=== PATIENT | female | born 1945 | race Caucasian/White ===

== ENCOUNTER 2017-06-18 12:45 | Inpatient (IN) ==
[2017-06-18 13:54] LABS: Basophils % 0.2 %; Eosinophils # 0.1 K/mcL (0.0-0.6); Eosinophils % 0.8 %; Hematocrit 30.7 % (35.3-44.9); Hemoglobin 9.4 g/dL (11.5-15.4); Immature Granulocytes % 0.5 % (0-4); Lymphocytes # 1.5 K/mcL (0.6-4.6); Mean Corpuscular HGB Conc 30.6 g/dL (31.6-35.5); Mean Corpuscular Hemoglobin 25.2 pg (28.0-33.3); Mean Corpuscular Volume 82.3 fL (83.0-100.0); Monocytes % 8.7 %; Neutrophils # 8.3 K/mcL (1.6-8.9); Platelet Count 223 K/mcL (140-400); Red Blood Count 3.73 M/mcL (3.82-4.97); Red Cell Distribution Width 14.7 % (11.5-14.5); Segmented Neutrophils % 75.8 %
[2017-06-18 14:11] LABS: Albumin 2.9 g/dL (3.5-5.0); Albumin/Globulin Ratio 0.6 (1.1-2.2); Bilirubin,Direct 0.2 mg/dL (0.0-0.5); Bilirubin,Indirect 0.4 mg/dL (0.0-1.2); Bilirubin,Total 0.6 mg/dL (0.2-1.2); Calcium 9.7 mg/dL (8.6-10.8); Globulin 5.2 g/dL (2.4-3.5); Potassium 3.8 mEq/L (3.5-4.5); Total Protein 8.1 g/dL (6.0-8.3)
[2017-06-18] MEDS ORDERED: 0.9 % Sodium Chloride 1,000 ML IVC ONE (14:50)
[2017-06-18 16:29] LABS: Bilirubin,Urine Small (Negative); Blood,Urine Negative (Negative); Clarity,Urine Turbid (Clear); Color,Urine Dark Yellow (Yellow); Glucose,Urine (UA) Normal (Normal); Ketones,Urine Negative (Negative); Leukocyte Esterase,Urine Moderate (Negative); Nitrite,Urine Negative (Negative); PH,Urine 5.5 pH Units (5.0-8.0); Protein,Urine Negative (Neg-Trace); Specific Gravity,Urine 1.027 (1.010-1.025); Urobilinogen,Urine Normal (Normal)
[2017-06-18 16:32] LABS: Squamous Epithelial Cell,Urine Many per lpf (None-Few); WBC,Urine 15-30 per hpf (0-3)
--- NOTE | 2017-06-18 16:37 | Emergency Department Note ---
Disposition Clinical Impression: Hypoxia UTI (urinary tract infection) Qualifiers: Urinary tract infection type: site unspecified Hematuria presence: with hematuria Qualified Code(s): N39.0 - Urinary tract infection, site not specified Disposition: Admitted As Inpatient Condition: Fair Referrals: Cha Freeman MD [Primary Care Provider] - Time of Disposition: 18:53 General Adult HPI - General Chief complaint: ED General Medical Stated complaint: urinary symptoms Time Seen by Provider: 06/18/17 14:44 Source: patient, family Limitations: no limitations Nursing Notes Reviewed: Yes Vital Signs Reviewed: Yes - History of Present Illness HPI Narrative: Mrs. Trevizo, 72-year-old female, presents from home for evaluation of decreased urination. Patient now urinates approximately 1 time per day. Described as foul smelling with left flank and lower back pain. She also notes bilateral foot pain worse with the swelling of her feet. Patient is a history of chronic kidney disease stage IV... Is nearing stage V. Podiatry: Dr. Hutson - hx of vein stripping causing chronic lower extremity edema. Pain Scale: 7 - Related Data Home Medications Medication Instructions Recorded Confirmed Aspirin 81 mg PO DAILY 01/07/16 01/07/16 Bupropion HCl [Wellbutrin Xl] 300 mg PO DAILY 01/07/16 01/07/16 Citalopram Hydrobromide [Celexa] 40 mg PO DAILY 01/07/16 01/07/16 Cyclobenzaprine [Flexeril] 10 mg PO TID PRN 01/07/16 01/07/16 Ergocalciferol (VITAMIN D2) 50,000 unit PO QWEEK MDD monday01/07/16 01/07/16 [Vitamin D2 (50,000 UNIT)] Ferrous Sulfate [Iron Supplement] 325 mg PO QWEEK MDD monday01/07/16 01/07/16 Furosemide [Lasix] 40 mg PO DAILY PRN 01/07/16 01/07/16 Gabapentin [Neurontin] 300 mg PO BID 01/07/16 01/07/16 Glimepiride [Amaryl] 2 mg PO DAILY 01/07/16 01/07/16 Insulin Glargine,Hum.rec.anlog 44 unit SQ HS 01/07/16 01/07/16 [Lantus Solostar] Levothyroxine [Synthroid] 150 mcg PO DAILY 01/07/16 01/07/16 Losartan Potassium [Cozaar] 50 mg PO DAILY 01/07/16 01/07/16 Simvastatin [Zocor] 40 mg PO HS 01/07/16 01/07/16 Allergies Allergy/AdvReac Type Severity Reaction Status Date / Time No Known Allergies Allergy Verified 06/18/17 13:05 Past Medical History - Past Medical History Medical history: Reports: arthritis, diabetes, hypertension, peripheral artery disease, renal disease Surgical history: Reports: cholecystectomy, hysterectomy Psychiatric history: Reports: no psych history ENGINEERING TECHNOLOGY 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 Patient is hypoxic on her baseline room air. Unknown cause at this time. Lung enriquez are clear to auscultation. BNP is not elevated, no hypertension, no crackles on exam-CHF unlikely. No wheeze on auscultation, chest x-ray unremarkable, no history COPD-COPD exacerbation unlikely. Afebrile and chest x- ray clear-pneumonia likely. Patient is slightly hypotensive with systolic in the 90s. We will gently fluid resuscitate with caution given to her worsening kidney disease. Unknown cause for hypotension at this point; patient is not tachypneic, not tachycardic, not febrile. No leukocytosis. Urinalysis does show UTI however no clinical picture of sepsis. Analysis concerning for UTI. Will begin empiric antibiotics at this time. Will recommend admission given patient began antibiotics 3 days ago for UTI and has thus failed outpatient management. Discussed the patient with the admitting hospitalist, Dr. Otero, who agrees to accept the patient for continued evaluation and management. Vital Signs Temperature 98.5 F 06/18/17 12:57 Pulse Rate 83 06/18/17 12:57 Respiratory Rate 14 06/18/17 12:57 Blood Pressure 97/52 06/18/17 12:57 O2 Sat by Pulse Oximetry 95 06/18/17 12:57 Temperature 98.7 F 06/18/17 17:34 Pulse Rate 72 06/18/17 18:30 Respiratory Rate 16 06/18/17 18:30 Blood Pressure 111/61 06/18/17 18:30 O2 Sat by Pulse Oximetry 99 06/18/17 18:30 Oxygen Delivery Oxygen Delivery Nasal Cannula Medical Decision Making - Medical Records Medical records reviewed: Yes I reviewed the patient's medical records. - Lab Data Lab results reviewed: Yes I reviewed the patient's lab results. Result diagrams: 06/18/17 13:45 06/18/17 13:45 Lab Results 06/18/17 06/18/17 06/18/17 Range/Units 13:45 13:45 13:45 WBC 11.0 (4.3-11.1) K/mcL RBC 3.73 L (3.82-4.97) M/mcL Hgb 9.4 L (11.5-15.4) g/dL Hct 30.7 L (35.3-44.9) % MCV 82.3 L (83.0-100.0) fL MCH 25.2 L (28.0-33.3) pg MCHC 30.6 L (31.6-35.5) g/dL RDW 14.7 H (11.5-14.5) % Plt Count 223 (140-400) K/mcL MPV 11.0 (9.4-12.4) fL Immature Gran % 0.5 (0-4) % Seg Neutrophils % 75.8 % Lymphocytes % 14.0 % Monocytes % 8.7 % Eosinophils % 0.8 % Basophils % 0.2 % Neutrophils # 8.3 (1.6-8.9) K/mcL Lymphocytes # 1.5 (0.6-4.6) K/mcL Monocytes # 1.0 (0.0-1.3) K/mcL Eosinophils # 0.1 (0.0-0.6) K/mcL Basophils # 0.0 (0.0-0.2) K/mcL Sodium 136 (136-145) mEq/L Potassium 3.8 (3.5-4.5) mEq/L Chloride 101 (98-109) mEq/L Carbon Dioxide 26 (19-29) mEq/L BUN 40 H (7-20) mg/dL Creatinine 3.23 H (0.57-1.11) mg/dL Est GFR ( Amer) 17 L (> 60) Est GFR (Non-Af Amer) 14 L (> 60) BUN/Creatinine Ratio 12 (6-26) Glucose 167 H (70-99) mg/dL Calculated Osmolality 296 (280-300) Calcium 9.7 (8.6-10.8) mg/dL Total Bilirubin 0.6 (0.2-1.2) mg/dL Direct Bilirubin 0.2 (0.0-0.5) mg/dL Indirect Bilirubin 0.4 (0.0-1.2) mg/dL AST 9 (5-34) Units/L ALT 6 (0-55) Units/L Alkaline Phosphatase 88 (38-126) Units/L Troponin I (0-0.03) ng/mL B-Natriuretic Peptide 39 (0-100) pg/mL Serum Total Protein 8.1 (6.0-8.3) g/dL Albumin 2.9 L (3.5-5.0) g/dL Globulin 5.2 H (2.4-3.5) g/dL Albumin/Globulin Ratio 0.6 L (1.1-2.2) Lipase 14 (8-78) Units/L Urine Color (Yellow) Urine Clarity (Clear) Urine pH (5.0-8.0) pH Units Ur Specific [place] (1.010-1.025) Urine Protein (Neg-Trace) mg/dL Urine Glucose (UA) (Normal) mg/dL Urine Ketones (Negative) mg/dL Urine Blood (Negative) Urine Nitrite (Negative) Urine Bilirubin (Negative) Urine Urobilinogen (Normal) mg/dL Ur Leukocyte Esterase (Negative) Urine Microscopic RBC (0-3) per hpf Urine Microscopic WBC (0-3) per hpf Ur Squamous Epith Cells (None-Few) per lpf Amorphous Sediment (Few) Urine Bacteria (None-Few) per hpf Hyaline Casts (None-Few) per lpf Ur Culture Indicated? (NO) 06/18/17 06/18/17 Range/Units 13:45 16:06 WBC (4.3-11.1) K/mcL RBC (3.82-4.97) M/mcL Hgb (11.5-15.4) g/dL Hct (35.3-44.9) % MCV (83.0-100.0) fL MCH (28.0-33.3) pg MCHC (31.6-35.5) g/dL RDW (11.5-14.5) % Plt Count (140-400) K/mcL MPV (9.4-12.4) fL Immature Gran % (0-4) % Seg Neutrophils % % Lymphocytes % % Monocytes % % Eosinophils % % Basophils % % Neutrophils # (1.6-8.9) K/mcL Lymphocytes # (0.6-4.6) K/mcL Monocytes # (0.0-1.3) K/mcL Eosinophils # (0.0-0.6) K/mcL Basophils # (0.0-0.2) K/mcL Sodium (136-145) mEq/L Potassium (3.5-4.5) mEq/L Chloride (98-109) mEq/L Carbon Dioxide (19-29) mEq/L BUN (7-20) mg/dL Creatinine (0.57-1.11) mg/dL Est GFR ( Amer) (> 60) Est GFR (Non-Af Amer) (> 60) BUN/Creatinine Ratio (6-26) Glucose (70-99) mg/dL Calculated Osmolality (280-300) Calcium (8.6-10.8) mg/dL Total Bilirubin (0.2-1.2) mg/dL Direct Bilirubin (0.0-0.5) mg/dL Indirect Bilirubin (0.0-1.2) mg/dL AST (5-34) Units/L ALT (0-55) Units/L Alkaline Phosphatase (38-126) Units/L Troponin I 0.01 (0-0.03) ng/mL B-Natriuretic Peptide (0-100) pg/mL Serum Total Protein (6.0-8.3) g/dL Albumin (3.5-5.0) g/dL Globulin (2.4-3.5) g/dL Albumin/Globulin Ratio (1.1-2.2) Lipase (8-78) Units/L Urine Color Dark Yellow (Yellow) Urine Clarity Turbid A (Clear) Urine pH 5.5 (5.0-8.0) pH Units Ur Specific [place] 1.027 H (1.010-1.025) Urine Protein Negative (Neg-Trace) mg/dL Urine Glucose (UA) Normal (Normal) mg/dL Urine Ketones Negative (Negative) mg/dL Urine Blood Negative (Negative) Urine Nitrite Negative (Negative) Urine Bilirubin Small H (Negative) Urine Urobilinogen Normal (Normal) mg/dL Ur Leukocyte Esterase Moderate H (Negative) Urine Microscopic RBC 0-3 (0-3) per hpf Urine Microscopic WBC 15-30 H (0-3) per hpf Ur Squamous Epith Cells Many H (None-Few) per lpf Amorphous Sediment Many H (Few) Urine Bacteria Moderate H (None-Few) per hpf Hyaline Casts None Seen (None-Few) per lpf Ur Culture Indicated? YES A (NO) - Radiology Data Radiology results reviewed: Yes I reviewed the patient's radiology results. - EKG Data EKG #1 EKG attestation: Yes I reviewed and interpreted this EKG. EKG results narrative: EKG dated 18 June 2017 at 15:22 but that sinus rhythm with a rate of 75. Normal intervals ND 190, QRS, QT/QTC 314/344. Normal axis. T-wave inversion in lead V1 and T-wave flattening in V2 both present on comparative EKG. Otherwise nonspecific ST-T changes. Compared to previous EKG dated 11/11/2011 showing no acute ischemic changes or comparison.
--- NOTE | 2017-06-18 16:53 | Emergency Department Note ---
START Narrative - START START: I examined this patient and my medical decision-making was reviewed with the Resident Physician. I agree with the documented findings, disposition and treatment plan as described except to the extent set forth below. 72 year old female presnts to the ED for difficulty with urination and he only uriantes x1 and is a patient of Dr. Hess and is currently NOT on dialysis. She also has been experencing incrased feet swelling but follows with Dr. Hutson Podiatry and her daugher states that this is a chronic occurance and he thinks it maybe due to vein stripping that she had in the past. Grant states that she had a diagnosis CHF a while back and is currently is on lasix therapy. We will do a cardiac noe. Grant also has an elevated crn which is higher than her normal. We will admit to medicine
[2017-06-18 16:57] LABS: RBC,Urine 0-3 per hpf (0-3)
[2017-06-18 16:58] LABS: Amorphous Sediment,Urine Many (Few); Hyaline Casts,Urine None Seen per lpf (None-Few)
[2017-06-18 16:59] LABS: Bacteria,Urine Moderate per hpf (None-Few)
[2017-06-18] MEDS ORDERED: 0.9 % Sodium Chloride 500 ML IVC ONE (17:26)
[2017-06-18] MEDS ORDERED: cefTRIAXone 1,000 MG in Water for inj. (sterile) 10 ML IVP ONE (18:22)
[2017-06-18] MEDS ORDERED: *HR* Morphine 2 MG/ML SYRINGE IVP ONE (18:34)
[2017-06-18] MEDS ORDERED: Ondansetron 4 MG/2 ML VIAL IVP ONE (19:02)
[2017-06-18] MEDS ORDERED: Dextrose Gel 15 GM PO PRN ×2 (20:13)
[2017-06-18] MEDS ORDERED: Naloxone 0.4 MG/ML INJ IVP PRN (20:13)
[2017-06-18] MEDS ORDERED: D5% in Water 1,000 ML IVC PRN (20:13)
--- NOTE | 2017-06-18 20:22 | Internal Med History&Physical ---
<Jason Terry - Last Filed: 06/18/17 20:47> Date of Encounter: 06/18/17 Time of Encounter: 20:18 Assessment and Plan (1) UTI (urinary tract infection) Current visit: Yes Status: Acute Failed outpatient treatment for UTI. Was treated over week ago with Keflex. Continuing to report abdominal pain, suprapubic pain, fever, chills, dysuria, with decreased urinary output. Additionally she reports she has dark foul- smelling urine. She will require inpatient treatment of IV antibiotic therapy. She continues to be afebrile, no leukocytosis noted. Hemodynamically stable. She does not appear septic. However, she does have worsening renal failure. She received a 2 L IV fluid bolus of 0.9% normal saline in the ED. Ceftriaxone 1 g daily Hold IV fluid for now as the patient does not make urine CBC, CMP in the morning Continues telemetry Qualifiers: Urinary tract infection type: site unspecified Hematuria presence: with hematuria Qualified Code(s): N39.0 - Urinary tract infection, site not specified; R31.9 - Hematuria, unspecified; R31.9 - Hematuria, unspecified (2) CKD (chronic kidney disease) stage 4, GFR 15-29 ml/min Current visit: Yes Status: Acute Patient has history of security stage IV being followed by [facility] nephrology. She currently has worsening renal function. There is been some discussion recently as to whether or not to start hemodialysis. The patient is against starting hemodialysis at this time. She denies decreased urinary output. Consult to nephrology for further recommendations-dayshift provider to call Hold Kota Hatch Lasix Gentle rehydration 0.9% NS at 75 mL per hour (3) Diabetes Current visit: Yes Status: Acute History of type 2 diabetes. Glucose 167, metabolic panel today. Reports that she is normally well controlled. 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 Trevizo is a 72 year old female with a PMH of CKD stage IV, arthritis, hypertension, PAD and diabetes mellitus. She presents today with chief complaint of decreased urinary output. She reports that she is only urinating once per day. Due to see Chaparrita stage IV she is being followed by Dr. Hess at [facility], she is currently not a dialysis patient although there has been conversation starting dialysis. She was recently seen by her primary care provider in late May, well that appointment is complaining of lower abdominal pain. She was found at that time to have a yeast infection and urinary tract infection and was sent home on KEFLEX. She continues to have lower abdominal pain, dysuria, foul-smelling urine and left flank/lower back pain. She admits to fever, chills, rigors. Denies nausea vomiting diarrhea. She is also concerned about some increased swelling in her bilateral feet. She is being followed by Dr. Hutson for swelling. He is being admitted for failed outpatient treatment for UTI Past Med Surg Social Fam HX - Past Medical History Medical history: arthritis, diabetes, hypertension, peripheral artery disease, renal disease Psychiatric history: no psych history - Past Surgical History Surgical History: cholecystectomy, hysterectomy - Social History Smoking Status: Never smoker Smokeless Tobacco Status: No Alcohol use: none Drug use: none - Family History Mother Hx Family Endocrine Disorder: Yes (DIABETES MELLITUS.) - Additional Family History Additional family history: Noncontributory Internal Medicine - H&P: Meds Aspirin 81 mg PO DAILY 01/07/16 [History] Bupropion HCl [Wellbutrin Xl] 300 mg PO DAILY 01/07/16 [History] Citalopram Hydrobromide [Celexa] 40 mg PO DAILY 01/07/16 [History] Cyclobenzaprine [Flexeril] 5 mg PO HS PRN 01/07/16 [History] Ergocalciferol (VITAMIN D2) [Vitamin D2 (50,000 UNIT)] 50,000 unit PO QWEEK MDD monday01/07/16 [History] Furosemide [Lasix] 40 mg PO DAILY 01/07/16 [History] Glimepiride [Amaryl] 2 mg PO DAILY 01/07/16 [History] Insulin Glargine,Hum.rec.anlog [Lantus Solostar] 40 unit SQ HS 01/07/16 [History ] Levothyroxine [Synthroid] 150 mcg PO DAILY 01/07/16 [History] Losartan Potassium [Cozaar] 50 mg PO DAILY 01/07/16 [History] Simvastatin [Zocor] 40 mg PO HS 01/07/16 [History] Amitriptyline HCl 10 mg PO HS 06/18/17 [History] Aripiprazole [Abilify] 2 mg PO DAILY 06/18/17 [History] Calcitriol 0.5 mcg PO DAILY 06/18/17 [History] Fluconazole [Diflucan] 50 mg PO DAILY 06/18/17 [History] Folic Acid 1 mg PO DAILY 06/18/17 [History] Iron Aspgly,Ps/C/B12/FA/Ca/Suc [Ferrex 150 Forte Plus Capsule] 1 each PO DAILY 06/18/17 [History] Nystatin Cream [Mycostatin Cream] 1 appl TP BID 06/18/17 [History] Pregabalin [Lyrica] 25 mg PO BID 06/18/17 [History] Tramadol HCl [Ultram] 50 mg PO BID PRN 06/18/17 [History] Vitamin B Complex 06/18/17 [History] cephALEXin [Keflex] 250 mg PO DAILY 06/18/17 [History] 3 Allergy/AdvReac Type Severity Reaction Status Date / Time No Known Allergies Allergy Verified 06/18/17 13:05 All Systems PM: A 10-system review of systems was performed and is negative for pertinent findings except as documented above in the HPI. - Constitutional Constitutional: chills, fatigue, fever(s), lethargy, weakness - Cardiovascular Cardiovascular ROS IM: edema, no chest pain, no diaphoresis, no dyspnea, no irregular heart rhythm, no lightheadedness, no orthopnea, no palpitations, no syncope - Respiratory Respiratory: no cough, no dyspnea, no wheezing, no excessive phlegm production - Gastrointestinal Gastrointestinal: no abdominal pain, no diarrhea, no hematemesis, no hematochezia, no melena, no nausea, no vomiting - Genitourinary Genitourinary: dysuria, flank pain, other (Decreased urinary output), no change in urinary stream - Musculoskeletal Musculoskeletal ROS IM: no numbness, no tingling - Integumentary Integumentary IM: no rash, no unusual bruising - Neurological Neurological ROS: confusion (Admits to new intermittent confusion), no convulsions, no focal weakness, no numbness, no tingling, no tremor(s) - Psychiatric Psychiatric: difficulty concentrating - Constitutional Vitals: Temp Pulse Resp BP Pulse Ox 98.7 F 72 18 104/50 99 06/18/17 17:34 06/18/17 18:30 06/18/17 19:03 06/18/17 19:03 06/18/17 18:30 General appearance: Present: cooperative, A&O X 3, no acute distress, answers questions appropriately - Head Head exam: Present: atraumatic, normocephalic - Eye Eye exam: Present: PERRL, conjuntiva pink, sclera anicteric Pupils: Present: PERRL - Neck Neck exam general surgery: Present: supple, trachea midline. Absent: lymphadenopathy - Respiratory Respiratory exam: Present: CTAB. Absent: accessory muscle use, rales, rhonchi, wheezes - Cardiovascular Cardiovascular exam: Present: RRR, +S1, +S2. Absent: diastolic murmur, gallop, rubs, systolic murmur - GI/Abdominal GI/Abdominal exam: Present: normal bowel sounds, soft, tenderness (Left and right lower quadrant as well as suprapubic tenderness to palpation). Absent: distended, guarding, rebound - Extremities Exam Extremities exam: Present: warm, radial pulses palpable and symmetrical. Absent : calf tenderness, cyanotic, pedal edema - Neurological Exam Neurological exam: Present: CN II-XII intact, oriented X3, no focal deficits. Absent: pronater drift, facial droop, speech deficit - Skin Skin exam: Present: dry, intact Internal Med - H&P Results - Labs CBC & Chem 7: 06/18/17 13:45 06/18/17 13:45 - EKG Data -: EKG Interpreted by Myself EKG shows normal: sinus rhythm Rate: normal - EKG Data Prior EKG available for review: yes When compared to previous EKG: there is no significant change - Diagnostic Studies Chest x-ray Status: image reviewed by me Additional comments: No acute cardiopulmonary process <Andrew Fonseca - Last Filed: 06/18/17 23:26> Date of Encounter: 06/18/17 Time of Encounter: 22:35 - Constitutional Constitutional: fever(s), no night sweats - EENT Eyes: no blurry vision, no change in vision - Cardiovascular Cardiovascular ROS IM: no chest pain - Respiratory Respiratory: no dyspnea - Gastrointestinal Gastrointestinal: no abdominal pain, no diarrhea, no vomiting - Genitourinary Genitourinary: dysuria, flank pain, no hematuria - Constitutional Vitals: Temp Pulse Resp BP Pulse Ox 98.2 F 80 16 81/49 98 06/18/17 23:15 06/18/17 23:15 06/18/17 23:15 06/18/17 23:15 06/18/17 23:15 General appearance: Present: A&O X 3, no acute distress Exam: looks dehydrated - Head Head exam: Present: normal inspection - ENT ENT exam: Present: mucous membranes dry, normal exam - Respiratory Respiratory exam: Present: CTAB. Absent: rales, rhonchi, wheezes - Cardiovascular Cardiovascular exam: Present: RRR, +S1, +S2 - GI/Abdominal GI/Abdominal exam: Present: normal bowel sounds, soft. Absent: tenderness - Extremities Exam Extremities exam: Present: warm. Absent: calf tenderness, pedal edema - Back Exam Back exam: Absent: CVA tenderness (L), CVA tenderness (R) Internal Med - H&P Results - Labs CBC & Chem 7: 06/18/17 13:45 06/18/17 13:45 - Attending Attestation I discussed the patient NAVAJO, PMH, ROS, lab data, and exam findings with Jason Terry CNP. I then saw and examined patient independently as well. Patient has failed outpatient treatment for her UTI. She also has CKD and has been on diuretics and her ARB. She now has JOSELINE on CKD and appears dry on exam. I feel that she is volume depleted. She received fluid bolus in ER. We will continue her on joslyn IVF hydration and recheck her renal function in the morning. Meanwhile, we will hold her diuretics and ARB. Additionally, nephrology has been consulted. I agree with antibiotic choice. Other than my comments above and noted exam findings, I agree with Jason's assessment and plan.
[2017-06-18] MEDS ORDERED: Insulin LISPRO 300 UNITS/3 ML VIAL SQ SCH (21:00)
[2017-06-18] MEDS ORDERED: Gabapentin 300 MG CAPSULE PO SCH (21:00)
[2017-06-18] MEDS ORDERED: 0.9 % Sodium Chloride 1,000 ML IVC SCH (21:00)
[2017-06-18] MEDS ORDERED: Insulin DETEMIR 100 UNIT/ML X5UNITS SQ SCH ×2 (21:00→22:00)
[2017-06-18] MEDS: *HR* Heparin 5,000 UNIT/ML VIAL SQ SCH (23:24)
[2017-06-19 05:30] LABS: Basophils % 0.2 %; Eosinophils # 0.1 K/mcL (0.0-0.6); Eosinophils % 1.3 %; Hematocrit 28.8 % (35.3-44.9); Hemoglobin 8.8 g/dL (11.5-15.4); Immature Granulocytes % 0.4 % (0-4); Lymphocytes # 2.8 K/mcL (0.6-4.6); Lymphocytes % 26.9 %; Mean Corpuscular HGB Conc 30.6 g/dL (31.6-35.5); Mean Corpuscular Hemoglobin 25.1 pg (28.0-33.3); Mean Corpuscular Volume 82.3 fL (83.0-100.0); Mean Platelet Volume 11.2 fL (9.4-12.4); Monocytes % 9.3 %; Neutrophils # 6.4 K/mcL (1.6-8.9); Platelet Count 237 K/mcL (140-400); Red Cell Distribution Width 14.9 % (11.5-14.5); Segmented Neutrophils % 61.9 %
[2017-06-19 05:41] LABS: Albumin 2.8 g/dL (3.5-5.0); Albumin/Globulin Ratio 0.6 (1.1-2.2); Bilirubin,Total 0.5 mg/dL (0.2-1.2); Calcium 9.6 mg/dL (8.6-10.8); Globulin 4.7 g/dL (2.4-3.5); Potassium 3.5 mEq/L (3.5-4.5); Total Protein 7.5 g/dL (6.0-8.3)
[2017-06-19] MEDS: D5% in 0.9% NACL 1,000 ML IVC SCH (06:15)
[2017-06-19] MEDS: *HR* Heparin 5,000 UNIT/ML VIAL SQ SCH ×2 (06:16→18:35)
[2017-06-19] MEDS: *HR* Dextrose 50 % in Water (Syg) 50 ML SYRINGE IVP PRN ×2 (06:43→06:48)
[2017-06-19] MEDS ORDERED: Insulin LISPRO 300 UNITS/3 ML VIAL SQ SCH (07:30)
[2017-06-19] MEDS: cefTRIAXone 1,000 MG in Water for inj. (sterile) 10 ML IVP SCH (09:27)
[2017-06-19] MEDS: Aspirin 81 MG TAB.CHEW PO SCH (09:27)
[2017-06-19] MEDS: BuPROPion XL (24 HR) 150 MG TABLET PO SCH (09:27)
[2017-06-19] MEDS: Folic Acid 1 MG TABLET PO SCH (09:27)
[2017-06-19] MEDS: Iron Polysaccharide Complex 150 MG CAPSULE PO SCH (09:27)
[2017-06-19] MEDS: ARIPiprazole 2 MG TABLET PO SCH (09:27)
[2017-06-19] MEDS: Pregabalin 25 MG CAPSULE PO SCH ×2 (09:27→20:47)
[2017-06-19] MEDS: traMADol 50 MG TABLET PO PRN ×2 (09:32→20:46)
[2017-06-19] MEDS: Nystatin Cream 15 GM TUBE TP SCH ×2 (09:47→23:41)
[2017-06-19] MEDS ORDERED: 0.9 % Sodium Chloride 1,000 ML IVC SCH (10:30)
[2017-06-19] MEDS ORDERED: 0.9 % Sodium Chloride 500 ML IVC ONE (11:13)
--- NOTE | 2017-06-19 17:10 | Internal Med Progress Note ---
Date of Encounter: 06/19/17 Time of Encounter: 17:08 - Assessment and plan (1) CKD (chronic kidney disease) stage 4, GFR 15-29 ml/min Current Visit: Yes Status: Acute Assessment and plan: hx stage IV CKD being followed by Nephrology. Now with worsening renal function. Per chart review, hemodialysis has been considered however patient not agreeable at this time. Holding home Cozaar, Amaryl, Lasix. Stop IV fluids as she appears overloaded with lower extremity edema and oliguria. Nephrology consulted. Renal ultrasound pending (2) UTI (urinary tract infection) Current Visit: Yes Status: Acute Assessment and plan: Failed outpatient treatment for UTI. Was treated over week ago with Keflex. Continuing to report abdominal pain, suprapubic pain, fever, chills, dysuria, with decreased urinary output. Additionally she reports she has dark foul- smelling urine. Afebrile, no elevated WBC. Continue ceftriaxone. Follow urine culture and narrow ATB accordingly. Qualifiers: Urinary tract infection type: site unspecified Hematuria presence: with hematuria Qualified Code(s): N39.0 - Urinary tract infection, site not specified; R31.9 - Hematuria, unspecified; R31.9 - Hematuria, unspecified (3) Diabetes Current Visit: Yes Status: Acute Assessment and plan: per hx but has been hypoglycemic with blood sugars in the 30s to 40s. Most likely secondary to home Amaryl with worsening renal function. Stopping all insulin, oral hypoglycemics. Monitor blood sugars every 1 hour. Continue IV dextrose. Qualifiers: Diabetes mellitus type: type 2 Diabetes mellitus complication status: without complication Diabetes mellitus longterm insulin use: with long term care phlebotomist use Qualified Code(s): E11.9 - Type 2 diabetes mellitus without complications ; Z79.4 - termite helper (current) use of insulin; Z79.4 - termite helper (current) use of insulin; Z79.4 - termite helper (current) use of insulin; Z79.4 - termite helper ( current) use of insulin (4) Lower back pain Current Visit: Yes Status: Acute Assessment and plan: Chronic per patient however now with worsening lower back pain with radiculopathy to bilateral lower extremities. ABD CT multilevel thoracic and lumbar spine degenerative changes. Lumbar MRI with mild spondylosis worse at L4 -L5 and L5-S1 with her is mild to moderate foraminal stenosis. Discussed case with Dr. Kelly and patient may benefit from outpatient cortisone injections. Official consult placed. Qualifiers: Chronicity: acute Back pain laterality: bilateral Sciatica presence: unspecified whether sciatica present Qualified Code(s): M54.5 - Low back pain (5) Lower extremity edema Current Visit: Yes Status: Acute Assessment and plan: in the setting of worsening renal failure and oliguria. Check echo, bilateral lower extreme Dopplers, LFTs (6) DVT prophylaxis Current Visit: Yes Status: Acute Assessment and plan: heparin - Subjective Interval history: Seen and examined at bedside; patient is new to me. Information obtained from chart review and patient report. Patient is complaining of lower back pain with radiculopathy to bilateral legs. She also reports lower abdominal paresthesia. Says she is experiencing lower extremity edema for the past couple days. Says she feels as if she has to void but unable to urinate. No chest pain or shortness of breath. Son at bedside and updated. He voices concern for possible oversedation with medication. - Constitutional Vitals: Temp Pulse Resp BP Pulse Ox 97.8 F 74 16 114/62 94 06/19/17 15:14 06/19/17 15:14 06/19/17 15:14 06/19/17 15:14 06/19/17 15:14 General appearance: Present: A&O X 3, no acute distress - Head Head exam: Present: atraumatic, normocephalic - Eye Eye exam: Present: PERRL, conjuntiva pink, sclera anicteric Pupils: Present: PERRL - Neck Neck exam general surgery: Present: supple, trachea midline. Absent: lymphadenopathy - Respiratory Respiratory exam: Present: CTAB. Absent: accessory muscle use, rales, rhonchi, wheezes - Cardiovascular Cardiovascular exam: Present: RRR, +S1, +S2. Absent: diastolic murmur, gallop, rubs, systolic murmur - GI/Abdominal GI/Abdominal exam: Present: normal bowel sounds, soft, no peritoneal signs. Absent: distended, tenderness - Extremities Exam Extremities exam: Present: pedal edema, warm, radial pulses palpable and symmetrical. Absent: calf tenderness, cyanotic - Neurological Exam Neurological exam: Present: CN II-XII intact, oriented X3, no focal deficits. Absent: pronater drift, facial droop, speech deficit - Skin Skin exam: Present: dry, intact Internal Medicine: Result - Labs CBC & Chem 7: 06/19/17 05:19 06/19/17 05:19 Labs: Short CBC 06/19/17 Range/Units 05:19 WBC 10.4 (4.3-11.1) K/mcL Hgb 8.8 L (11.5-15.4) g/dL Hct 28.8 L (35.3-44.9) % Plt Count 237 (140-400) K/mcL Neutrophils # 6.4 (1.6-8.9) K/mcL BMP 06/19/17 05:19 Sodium 139 Potassium 3.5 Chloride 105 Carbon Dioxide 26 BUN 44 H Creatinine 4.13 H Glucose 35 L* Calcium 9.6 Liver Function 06/19/17 Range/Units 05:19 Total Bilirubin 0.5 (0.2-1.2) mg/dL AST 17 (5-34) Units/L ALT 8 (0-55) Units/L Alkaline Phosphatase 83 (38-126) Units/L Albumin 2.8 L (3.5-5.0) g/dL - Impressions Impressions Lumbar Spine MRI 06/19/17 12:49 IMPRESSION: Mild spondylosis worst at L4-5 and L5-S1 where there is mild to moderate foraminal stenosis. D/ / 06/19/2017 15:51:50 Curly Yadav MD / Silvia Montanez Interpreting Provider: Curly Yadav MD Consult Discharge Plan - Plan Referrals: Cha Freeman MD [Primary Care Provider] -
--- NOTE | 2017-06-19 18:12 | Nephrology Consult Note ---
Date of Encounter: 06/19/17 Time of Encounter: 18:00 Assessment and Plan (1) JOSELINE (acute kidney injury) Status: Acute Either JOSELINE on CKD stage IV vs progression of renal failure to ESRD. She has experienced progressive decline in appetite and lost about 20+ lbs recently, plus progressive cognitive decline (she reported): all of which are consistent with symptoms of uremia. She is not emergently needing HD at this hour (she is not hyperkalemic for example); however, with her progressive decline, I do recommend HD tomorrow. I had a long discussion about dialysis options including Temporary HD catheter vs Permacath. exterminator helper termite to consider about an AVF vs PD (the latter she said that she would not want). +FHx of ESRD: her mother was on dialysis, she reported Would continue to hold Lasix and the ARB for now. Her Lower Extremity edema was not pitting or tight, but hold lasix d/t the worsening renal failure. She said that she'll think about her dialysis options but that she would proceed with dialysis, and is leaning towards a temporary HD catheter. Will make her NPO just in case if we proceed with a Permacath. The pt's floor RN was present during my exam and interview. Thank you for consulting the [facility] group. Will follow with you. (2) Hypertension Status: Acute See above. Avoid LESLIE or ARB d/t the severity of her JOSELINE on CKD vs renal progression. Qualifiers: Hypertension type: unspecified Qualified Code(s): I10 - Essential (primary ) hypertension (3) Family history of renal failure Status: Acute See above (4) Hypoglycemia Status: Acute (5) CKD (chronic kidney disease) stage 4, GFR 15-29 ml/min Status: Acute Baseline CKD stage IV and followed by my colleague Dr. Hess in the outpatient setting. (6) Lower extremity edema Status: Acute Limiting in use of diuretics, which would surely worsening her renal function. History of Present Illness - Reason for Consult Consult date: 06/19/17 Chronic Kidney Disease Requesting physician: Jessica Saleem - Chief Complaint Advancing renal failure - History of Present Illness Ghazala Zapata is a very pleasant 72 y/o WF with a pmh of CKD stage IV, HTN, obesity and et al who presented with flank pains, urinary symptoms and was noted to have an JOSELINE on CKD stage IV. Her primary histology manager is Dr. Hess; and , I reviewed her recent outpatient progress notes. She said that she has a +FHx of ESRD in her mother; her sister has CKD. The pt did affirm having urinary frequency but no F/C or dysuria; with symptom onset several days ago. She did not affirm CP, N/V/D. However, she said that her DM and weight have both been improving with an associated decreased appetite and meanwhile her renal function has slowly been worsening, it was noted. She denied OTC NSAID use. She has not had recent IV contrast or major surgery. She was seen/examined on 3B unit at [facility]. Past Med Surg Social Fam HX - Past Medical History Medical history: arthritis, diabetes, hypertension, peripheral artery disease, renal disease Psychiatric history: no psych history - Past Surgical History Surgical History: cholecystectomy, hysterectomy - Social History Smoking Status: Never smoker Smokeless Tobacco Status: No Alcohol use: none Drug use: none - Family History Mother Hx Family Endocrine Disorder: Yes (DIABETES MELLITUS.) Medications and Allergies Aspirin 81 mg PO DAILY 01/07/16 [History] Bupropion HCl [Wellbutrin Xl] 300 mg PO DAILY 01/07/16 [History] Citalopram Hydrobromide [Celexa] 40 mg PO DAILY 01/07/16 [History] Cyclobenzaprine [Flexeril] 5 mg PO HS PRN 01/07/16 [History] Ergocalciferol (VITAMIN D2) [Vitamin D2 (50,000 UNIT)] 50,000 unit PO QWEEK MDD monday01/07/16 [History] Glimepiride [Amaryl] 2 mg PO DAILY 01/07/16 [History] Levothyroxine [Synthroid] 150 mcg PO DAILY 01/07/16 [History] Simvastatin [Zocor] 40 mg PO HS 01/07/16 [History] Amitriptyline HCl 10 mg PO HS 06/18/17 [History] Aripiprazole [Abilify] 2 mg PO DAILY 06/18/17 [History] Calcitriol 0.5 mcg PO DAILY 06/18/17 [History] Folic Acid 1 mg PO DAILY 06/18/17 [History] Iron Aspgly,Ps/C/B12/FA/Ca/Suc [Ferrex 150 Forte Plus Capsule] 1 each PO DAILY 06/18/17 [History] Nystatin Cream [Mycostatin Cream] 1 appl TP BID 06/18/17 [History] Pregabalin [Lyrica] 25 mg PO BID 06/18/17 [History] Tramadol HCl [Ultram] 50 mg PO BID PRN 06/18/17 [History] Vitamin B Complex [B Complex] 1 tab PO DAILY 06/19/17 [History] Ferrous Sulfate 325 mg PO QWEEK tablet 06/25/17 [Rx] Insulin Glargine,Hum.rec.anlog [Lantus Solostar] 10 unit SQ HS #0 06/25/17 [Rx] Losartan Potassium [Cozaar] 25 mg PO DAILY #0 06/25/17 [Rx] 3 Allergy/AdvReac Type Severity Reaction Status Date / Time No Known Allergies Allergy Verified 06/18/17 13:05 Review of Systems All Systems: reviewed and no additional remarkable complaints except as stated Exam - Vital Signs Vital signs: Initial Vital Signs Temp Pulse Resp BP Pulse Ox 98.5 F 83 14 97/52 95 06/18/17 12:57 06/18/17 12:57 06/18/17 12:57 06/18/17 12:57 06/18/17 12:57 Vital Signs - Last 8 Hours Temp Pulse Resp BP Pulse Ox 06/19/17 15:14 97.8 F 74 16 114/62 94 06/19/17 11:00 97.9 F 72 15 109/63 99 Intake and Output 06/19/17 06/19/17 06/19/17 07:59 15:59 23:59 Intake Total 985 / 985 360 / 360 Output Total 100 / 100 Balance 985 / 985 260 / 260 Intake: IV Fluids 505 / 505 0.9 % Sodium Chloride 1,000 ML 505 / 505 @ 75 mls/hr IVC .[id number] [facility] Rx #:[id number] Oral 480 / 480 360 / 360 Output: Straight Cath 100 / 100 Other: Meal Lunch Percent of Meal Consumed 100% Weight 101.2 kg Blood Glucose* 140 62 53 Patient Weight 06/19/17 23:59 Weight 101.2 kg - General Appearance General appearance: well-developed, well-nourished, appears started age, obese EENT: ATNC, PERRL, mucous membranes moist Neck: supple Respiratory: clear Cardiology: edema, regular rate, regular rhythm, normal S1, normal S2 Gastrointestinal: normoactive bowel sounds, no tenderness, no guarding, obese Integumentary: no rash, warm and dry Neurologic: no focal deficit, no asterixis, alert and oriented x3 Musculoskeletal: no deformities, no erythema, no cyanosis Psychiatric: mood/affect appropriate, cooperative Results - Lab Results 06/25/17 03:12 06/25/17 03:12 Most recent lab results Calcium 9.6 mg/dL (8.6-10.8) 06/19/17 05:19 I reviewed the progress notes from both the inpt and outpt settings, labs, med lists, vitals and imaging. Consult Discharge Plan - Plan Instructions: Urinary Tract Infection in Women (DC) Referrals: Cha Freeman MD [Primary Care Provider] - 06/30/17 Ny Silvestre MD [Partnered Physician] - 07/07/17
[2017-06-20] MEDS: D5% in 0.9% NACL 1,000 ML IVC SCH (01:25)
[2017-06-20 04:33] LABS: Hemoglobin 7.3 g/dL (11.5-15.4); Mean Corpuscular HGB Conc 31.7 g/dL (31.6-35.5); Mean Corpuscular Hemoglobin 25.4 pg (28.0-33.3); Mean Corpuscular Volume 80.1 fL (83.0-100.0); Mean Platelet Volume 11.1 fL (9.4-12.4); Platelet Count 188 K/mcL (140-400); Red Blood Count 2.87 M/mcL (3.82-4.97); Red Cell Distribution Width 14.7 % (11.5-14.5)
[2017-06-20 04:37] LABS: INR 1.3
[2017-06-20 04:54] LABS: Calcium 8.6 mg/dL (8.6-10.8); Potassium 4.1 mEq/L (3.5-4.5)
[2017-06-20 04:57] LABS: Albumin/Globulin Ratio 0.5 (1.1-2.2); Bilirubin,Direct 0.1 mg/dL (0.0-0.5); Bilirubin,Indirect 0.2 mg/dL (0.0-1.2); Bilirubin,Total 0.3 mg/dL (0.2-1.2); Globulin 4.2 g/dL (2.4-3.5); Magnesium 1.2 mg/dL (1.6-2.6); Phosphorous 5.7 mg/dL (2.3-4.7); Total Protein 6.4 g/dL (6.0-8.3)
[2017-06-20 04:58] LABS: Albumin 2.2 g/dL (3.5-5.0)
[2017-06-20] MEDS: *HR* Heparin 5,000 UNIT/ML VIAL SQ SCH ×2 (06:42→18:26)
[2017-06-20] MEDS ORDERED: 0.9 % Sodium Chloride 250 ML IVC PRN (09:03)
[2017-06-20] MEDS: Pregabalin 25 MG CAPSULE PO SCH ×2 (09:26→23:05)
[2017-06-20] MEDS: Aspirin 81 MG TAB.CHEW PO SCH (09:26)
[2017-06-20] MEDS: Folic Acid 1 MG TABLET PO SCH (09:26)
[2017-06-20] MEDS: BuPROPion XL (24 HR) 150 MG TABLET PO SCH (09:26)
[2017-06-20] MEDS: Iron Polysaccharide Complex 150 MG CAPSULE PO SCH (09:27)
[2017-06-20] MEDS: cefTRIAXone 1,000 MG in Water for inj. (sterile) 10 ML IVP SCH (09:27)
[2017-06-20] MEDS: Nystatin Cream 15 GM TUBE TP SCH ×2 (09:30→23:05)
--- NOTE | 2017-06-20 10:22 | Nephrology Progress Note ---
Date of Encounter: 06/20/17 Time of Encounter: 10:20 - Assessment and Plan (1) JOSELINE (acute kidney injury) Current Visit: Yes Status: Acute Going for placement of temp line today followed by first hemodialysis treatment. Patient was offered option of having a permacath placed instead of the temp line but she opted for the temp line at this time. If patient needs ongoing dialysis after discharge, she would like to come to the [facility] clinic. (2) CKD (chronic kidney disease) stage 4, GFR 15-29 ml/min Current Visit: Yes Status: Acute First HD treatment today Avoid nephrotoxins if possible (3) Anemia Current Visit: Yes Status: Acute Hgb 7.3 Will start epo/aranesp Goal hgb 10-11 Transfuse per parameters. Qualifiers: Anemia type: unspecified type Qualified Code(s): D64.9 - Anemia, unspecified (4) Hypomagnesemia Current Visit: Yes Status: Acute Mg 1.2-advise replacing (5) Hyperphosphatemia Current Visit: Yes Status: Acute Phos 5.7 Monitor closely-may need binder Renal diet-ordered (6) Hypertension Current Visit: Yes Status: Acute per primary care Qualifiers: Hypertension type: unspecified Qualified Code(s): I10 - Essential (primary ) hypertension Subjective Principal diagnosis: JOSELINE on CKD stage 4, HTN Interval history: Patient seen and examined. Sitting on side of bed, waiting to go for temp line placement. Objective - Vital Signs Vital signs: Vital Signs Temp Pulse Resp BP Pulse Ox 06/20/17 07:41 98.4 F 85 16 115/70 95 06/20/17 03:34 91 06/20/17 03:15 98.2 F 82 15 115/65 93 06/20/17 02:19 98.6 F 81 16 112/63 91 06/19/17 22:54 97.7 F 76 18 103/63 96 06/19/17 18:58 97.5 F L 77 18 112/55 97 06/19/17 15:14 97.8 F 74 16 114/62 94 06/19/17 11:00 97.9 F 72 15 109/63 99 Intake and Output 06/19/17 06/20/17 06/20/17 23:59 07:59 15:59 Intake Total 700 / 700 0 / 0 Output Total 0 / 0 Balance 700 / 700 0 / 0 Intake: IV Fluids 0 / 0 D5% And 0.9% Nacl 1000 Ml 1,000 0 / 0 ML @ 75 mls/hr IVC .[id number] [facility] Rx#:[id number] Oral 700 / 700 0 / 0 Output: Urine 0 / 0 Other: Meal NPO Weight 103.374 kg Blood Glucose* 65 130 Patient Weight 06/20/17 23:59 Weight 103.374 kg - General Appearance General appearance: Present: well-developed, well-nourished, obese EENT: Present: ATNC, mucous membranes moist, hearing intact, vision intact Neck: Present: supple Respiratory: Present: clear Cardiology: Present: edema, normal S1, normal S2 Gastrointestinal: Present: no tenderness, no guarding, obese Integumentary: Present: warm and dry Neurologic: Present: alert and oriented x3 Psychiatric: Present: mood/affect appropriate, cooperative - Lab 06/20/17 04:17 06/20/17 04:17 Most recent lab results Calcium 8.6 mg/dL (8.6-10.8) 06/20/17 04:17 Phosphorus 5.7 mg/dL (2.3-4.7) H 06/20/17 04:17 Magnesium 1.2 mg/dL (1.6-2.6) L 06/20/17 04:17 Consult Discharge Plan - Plan Referrals: Cha Freeman MD [Primary Care Provider] -
[2017-06-20] MEDS: ARIPiprazole 2 MG TABLET PO SCH (10:41)
[2017-06-20 10:43] LABS: Hepatitis B Surface Antigen Nonreactive (Nonreactive)
[2017-06-20] MEDS ORDERED: Insulin LISPRO 300 UNITS/3 ML VIAL SQ SCH ×2 (11:30→21:00)
--- NOTE | 2017-06-20 14:47 | IR Procedure Note ---
Date of procedure: 06/20/17 Consent Obtained: Written consent Timeout: Correct patient and procedure verified, Correct site verified, Time out performed, Skin prep completed Local anesthetic: Lidocaine 1% Indications: Acute renal insufficiency Procedure Performed: Temp HD catheter placement Site/Technique: RIJV used for access. Done at bedside. Results/Findings: Working well. XRay showed tip in region of CA jcn. Ok to use. Estimated blood loss (cc): 1 Complications: None; Tolerated procedure well Post Procedure Treatment Plan: Temp HD catheter placed, 20cm
--- NOTE | 2017-06-20 15:53 | Internal Med Progress Note ---
Date of Encounter: 06/20/17 Time of Encounter: 09:00 - Assessment and plan (1) UTI (urinary tract infection) Current Visit: Yes Status: Acute Assessment and plan: Improved symptoms. Continue ceftriaxone. Urine culture negative. Qualifiers: Urinary tract infection type: site unspecified Hematuria presence: with hematuria Qualified Code(s): N39.0 - Urinary tract infection, site not specified; R31.9 - Hematuria, unspecified; R31.9 - Hematuria, unspecified (2) CKD (chronic kidney disease) stage 4, GFR 15-29 ml/min Current Visit: Yes Status: Acute Assessment and plan: hx stage IV CKD being followed by Nephrology. Now with worsening renal function. Nephrology consulted and planned for hemodialysis. Renal ultrasound shows negative for hydronephrosis bilaterally. (3) Diabetes Current Visit: Yes Status: Acute Assessment and plan: No further hypoglycemia. We will continue sliding scale insulin at a low dose. Hold basal insulin. Closely monitor glucose level Qualifiers: Diabetes mellitus type: type 2 Diabetes mellitus complication status: without complication Diabetes mellitus terminal clerk insulin use: with terminal clerk use Qualified Code(s): E11.9 - Type 2 diabetes mellitus without complications ; Z79.4 - [facility]CI (current) use of insulin; Z79.4 - [facility]CI (current) use of insulin; Z79.4 - [facility]CI (current) use of insulin; Z79.4 - terminologist ( current) use of insulin (4) DVT prophylaxis Current Visit: Yes Status: Acute Assessment and plan: heparin sc (5) Hypertension Current Visit: Yes Status: Acute Assessment and plan: Continue home medications Qualifiers: Hypertension type: unspecified Qualified Code(s): I10 - Essential (primary ) hypertension (6) Hypomagnesemia Current Visit: Yes Status: Acute Assessment and plan: Give magnesium supplement today. (7) Anemia Current Visit: Yes Status: Acute Assessment and plan: Likely due to CKD. Continue monitoring H&H Qualifiers: Anemia type: due to chronic kidney disease Chronic kidney disease stage: stage 4 (severe) Qualified Code(s): N18.4 - Chronic kidney disease, stage 4 ( severe); D63.1 - Anemia in chronic kidney disease; D63.1 - Anemia in chronic kidney disease - Time Spent With Patient 25 - 35 minutes - Subjective Interval history: Patient was seen and examined. Complained general fatigue. Creatinine level keep trending up. Nephrology is on case and plan to start hemodialysis. Will continue close monitoring patient. - Constitutional Vitals: Temp Pulse Resp BP Pulse Ox 98.7 F 80 15 105/63 94 06/20/17 12:07 06/20/17 12:07 06/20/17 12:07 06/20/17 12:07 06/20/17 12:07 General appearance: Present: A&O X 3, no acute distress - Head Head exam: Present: atraumatic, normocephalic - Eye Eye exam: Present: PERRL, conjuntiva pink, sclera anicteric Pupils: Present: PERRL - Neck Neck exam general surgery: Present: supple, trachea midline. Absent: lymphadenopathy - Respiratory Respiratory exam: Present: CTAB. Absent: accessory muscle use, rales, rhonchi, wheezes - Cardiovascular Cardiovascular exam: Present: RRR, +S1, +S2. Absent: diastolic murmur, gallop, rubs, systolic murmur - GI/Abdominal GI/Abdominal exam: Present: normal bowel sounds, soft, no peritoneal signs. Absent: distended, tenderness - Extremities Exam Extremities exam: Present: warm, radial pulses palpable and symmetrical. Absent : calf tenderness, cyanotic, pedal edema - Neurological Exam Neurological exam: Present: CN II-XII intact, oriented X3, no focal deficits. Absent: pronater drift, facial droop, speech deficit - Skin Skin exam: Present: dry, intact Internal Medicine: Result - Labs CBC & Chem 7: 06/20/17 04:17 06/20/17 04:17 Labs: Short CBC 06/20/17 Range/Units 04:17 WBC 7.0 (4.3-11.1) K/mcL Hgb 7.3 L D (11.5-15.4) g/dL Hct 23.0 L (35.3-44.9) % Plt Count 188 (140-400) K/mcL BMP 06/20/17 04:17 Sodium 136 Potassium 4.1 Chloride 103 Carbon Dioxide 22 BUN 50 H Creatinine 4.25 H Glucose 210 H Calcium 8.6 Liver Function 06/20/17 Range/Units 04:17 Total Bilirubin 0.3 (0.2-1.2) mg/dL Direct Bilirubin 0.1 (0.0-0.5) mg/dL AST 25 (5-34) Units/L ALT 10 (0-55) Units/L Alkaline Phosphatase 72 (38-126) Units/L Albumin 2.2 L D (3.5-5.0) g/dL - ABG Interpretation ABG results: PT/INR, D-dimer PT 14.0 Seconds (9.4-12.1) H 06/20/17 04:17 - Impressions Impressions Lumbar Spine MRI 06/19/17 12:49 IMPRESSION: Mild spondylosis worst at L4-5 and L5-S1 where there is mild to moderate foraminal stenosis. D/ / 06/19/2017 15:51:50 Curly Yadav MD / Silvia Montanez Interpreting Provider: Curly Yadav MD Echocardiogram 06/19/17 17:21 Impressions: LVEF 60%. Normal LV chamber size, wall thickness and function. Mild left ventricular diastolic dysfunction. Normal right ventricular structure and function. No evidence of pulmonary hypertension. No significant valvular dysfunction. Left Ventricular Wall Motion: Rest Echo Findings All wall segments showed normal motion. Findings: Study Quality * Technically adequate exam. ECG Findings * Normal sinus rhythm. Left Ventricle * LVEF 60%. * Normal LV chamber size, wall thickness and function. * Mild left ventricular diastolic dysfunction. Right Ventricle * Normal right ventricular structure and function. Left Atrium * Mildly dilated left atrium. Right Atrium * Mildly dilated right atrium. Aortic Valve * Aortic valve not well visualized. * Trace aortic regurgitation. * No aortic stenosis. Mitral Valve * Normal mitral valve structure and function. * No mitral regurgitation. * No mitral stenosis. Tricuspid Valve * Normal tricuspid valve structure and function. * Trace tricuspid regurgitation. * No evidence of pulmonary hypertension. Pulmonic Valve * Normal pulmonic valve structure and function. * No pulmonic regurgitation. Aorta * Normally sized aortic root. Pericardium * The pericardium appears normal. IVC * Normal IVC dimensions and inspiratory collapse. Pulmonary Artery * Normal visualized portions of the main pulmonary artery. Retroperitoneum Ultrasound 06/19/17 18:00 IMPRESSION: 1. No evidence of acute obstructive uropathy. 2. Incidental benign right renal cyst. D/ / Keagan Ruby / Keagan Ruby Interpreting Provider: Keagan Ruby Chest X-Ray 06/20/17 13:47 IMPRESSION: Dialysis catheter projects in normal position. No pneumothorax or acute cardiopulmonary disease. D/ / Simone De Anda MD / Simone De Anda MD Interpreting Provider: Simone De Anda MD Consult Discharge Plan - Plan Referrals: Cha Freeman MD [Primary Care Provider] -
[2017-06-20] MEDS ORDERED: *HR* Heparin 10,000 UNIT/10 ML VIAL IV PRN (16:34)
[2017-06-20] MEDS: Insulin LISPRO 300 UNITS/3 ML VIAL SQ SCH (18:26)
[2017-06-21 04:05] LABS: Hematocrit 25.8 % (35.3-44.9); Hemoglobin 7.9 g/dL (11.5-15.4); Mean Corpuscular HGB Conc 30.6 g/dL (31.6-35.5); Mean Corpuscular Hemoglobin 25.1 pg (28.0-33.3); Mean Corpuscular Volume 81.9 fL (83.0-100.0); Platelet Count 214 K/mcL (140-400); Red Blood Count 3.15 M/mcL (3.82-4.97); Red Cell Distribution Width 14.8 % (11.5-14.5)
[2017-06-21 04:07] LABS: Basophils % 0.2 %; Eosinophils # 0.1 K/mcL (0.0-0.6); Hematocrit 25.4 % (35.3-44.9); Hemoglobin 7.9 g/dL (11.5-15.4); Immature Granulocytes % 0.8 % (0-4); Lymphocytes # 1.5 K/mcL (0.6-4.6); Lymphocytes % 25.7 %; Mean Corpuscular HGB Conc 31.1 g/dL (31.6-35.5); Mean Corpuscular Hemoglobin 25.5 pg (28.0-33.3); Mean Corpuscular Volume 81.9 fL (83.0-100.0); Monocytes # 0.6 K/mcL (0.0-1.3); Monocytes % 9.8 %; Neutrophils # 3.6 K/mcL (1.6-8.9); Platelet Count 214 K/mcL (140-400); Red Cell Distribution Width 14.7 % (11.5-14.5); Segmented Neutrophils % 61.5 %
[2017-06-21 04:20] LABS: Potassium 4.2 mEq/L (3.5-4.5)
[2017-06-21] MEDS ORDERED: 0.9 % Sodium Chloride 250 ML IVC PRN (04:27)
[2017-06-21] MEDS: Insulin LISPRO 300 UNITS/3 ML VIAL SQ SCH ×5 (05:52→21:26)
[2017-06-21] MEDS: *HR* Heparin 5,000 UNIT/ML VIAL SQ SCH ×2 (06:10→18:22)
[2017-06-21] MEDS ORDERED: 0.9 % Sodium Chloride 1,000 ML ONE (08:34)
--- NOTE | 2017-06-21 09:36 | Nephrology Progress Note ---
Date of Encounter: 06/21/17 Time of Encounter: 08:40 - Assessment and Plan (1) TRISTON (acute kidney injury) Status: Acute Triston on CKD stage IV requiring her first treatment of HD yesterday. UOP was 750 for the whole day yesterday, which could be reassuring: will monitor UOP, but nevertheless, I recommend a 2nd HD treatment today. Will reassess for dialysis needs tomorrow. Continue to follow a renal protective strategy. (2) Hypertension Status: Acute Will modulate with SAND POLISHER for now. Should improve with UF from HD. Avoiding her outpt ARB d/t the TRISTON on CKD stage IV. Qualifiers: Hypertension type: unspecified Qualified Code(s): I10 - Essential (primary ) hypertension (3) Family history of renal failure Status: Acute (4) Hypoglycemia Status: Acute As per primary. (5) CKD (chronic kidney disease) stage 4, GFR 15-29 ml/min Status: Acute Baseline at stage IV CKD; follows with Dr. Hess. (6) Lower extremity edema Status: Acute Trending better with SAND POLISHER Subjective Principal diagnosis: TRISTON on CKD stage 4, HTN Interval history: Pt was s/e and she did not affirm N/V/D or cramping or CP, but she did report that her LE swelling is slowly improving. Objective - Vital Signs Vital signs: Vital Signs Temp Pulse Resp BP Pulse Ox 06/21/17 07:24 98.3 F 72 18 134/69 94 06/21/17 06:10 97.7 F 72 16 87/46 94 06/20/17 23:40 98.3 F 85 12 96/48 94 06/20/17 21:54 98.4 F 50 16 112/59 98 06/20/17 20:45 94 06/20/17 16:55 99.0 F 15 128/60 06/20/17 16:45 110/71 06/20/17 16:30 125/63 06/20/17 16:15 139/64 06/20/17 16:00 136/76 06/20/17 15:45 130/63 06/20/17 15:30 141/63 06/20/17 15:15 111/58 06/20/17 15:00 131/79 06/20/17 14:45 99.0 F 15 130/72 06/20/17 12:07 98.7 F 80 15 105/63 94 Intake and Output 06/20/17 06/21/17 06/21/17 23:59 07:59 15:59 Intake Total 120 / 120 0 / 0 Output Total 3000 / 3000 0 / 0 Balance -2880 / -2880 0 / 0 Intake: Oral 120 / 120 0 / 0 Output: Urine 400 / 400 0 / 0 Total Dialysis (HD) Output 2600 / 2600 Other: Weight 103.147 kg Blood Glucose* 181 118 Hemodialysis Net Fluid Removed 2000 (mL) Patient Weight 06/21/17 23:59 Weight 103.147 kg - General Appearance Exam: General appearance: well-developed, well-nourished, appears started age, obese EENT: ATNC, PERRL, mucous membranes moist Neck: supple Respiratory: clear Cardiology: edema, regular rate, regular rhythm, normal S1, normal S2 Gastrointestinal: normoactive bowel sounds, no tenderness, no guarding, obese Integumentary: no rash, warm and dry Neurologic: no focal deficit, no asterixis, alert and oriented x3 Musculoskeletal: no deformities, no erythema, no cyanosis Psychiatric: mood/affect appropriate, cooperative - Lab 06/25/17 03:12 06/25/17 03:12 Most recent lab results Calcium 9.0 mg/dL (8.6-10.8) 06/21/17 03:53 Phosphorus 5.7 mg/dL (2.3-4.7) H 06/20/17 04:17 Magnesium 1.2 mg/dL (1.6-2.6) L 06/20/17 04:17 Consult Discharge Plan - Plan Instructions: Urinary Tract Infection in Women (DC) Referrals: Cha Freeman MD [Primary Care Provider] - 06/30/17 Ny Silvestre MD [Partnered Physician] - 07/07/17
[2017-06-21] MEDS: Pregabalin 25 MG CAPSULE PO SCH ×2 (10:02→21:27)
[2017-06-21] MEDS: Folic Acid 1 MG TABLET PO SCH (10:02)
[2017-06-21] MEDS: BuPROPion XL (24 HR) 150 MG TABLET PO SCH (10:02)
[2017-06-21] MEDS: Aspirin 81 MG TAB.CHEW PO SCH (10:02)
[2017-06-21] MEDS: Iron Polysaccharide Complex 150 MG CAPSULE PO SCH (10:02)
[2017-06-21] MEDS: ARIPiprazole 2 MG TABLET PO SCH (10:03)
[2017-06-21] MEDS: Nystatin Cream 15 GM TUBE TP SCH ×2 (10:06→21:32)
[2017-06-21 10:54] LABS: Hepatitis B Surface Antibody 0.44 mIU/mL
--- NOTE | 2017-06-21 11:45 | Spinal Consult Note ---
Date of Encounter: 06/20/17 Time of Encounter: 15:45 Assessment and Plan (1) Lumbar foraminal stenosis Current Visit: Yes Status: Chronic On exam she is lying comfortable in bed in no acute distress. Afebrile vital signs stable. She is neurovascularly intact with regard to bilateral upper and lower extremities. Her hips move symmetrically. She has no clonus. MRI of the lumbar spine dated 06/19/2017 reveals moderate bilateral foraminal stenosis at L5-S1. There is mild stenosis at L4-5. There multilevel degenerative changes. Impression:1) lumbar foraminal stenosis 2) lumbar radiculopathy Plan: I see no role for surgical intervention. She can continue on an outpatient basis with pain management for interventional treatments with Dr. Kim. She can also consider an outpatient formal physical therapy and low back program. The patient understands their is no acute surgical indications at this time. History of Present Illness Chief complaint: Back pain and pain pill in the right lower extremity greater than left HPI: Ms. Trevizo is a 72 year old female Who has chronic back pain and leg symptoms and complains of occasional weakness in the lower extremities. She has had interventional treatments in the past at the [facility]. She rates the pain is a 5 on a pain scale. Is worse with activities. She has no definitive bowel bladder symptoms. She denies fevers or chills. We are asked to see after MRI examination to see if any surgical or other treatment options are warranted. Past Med Surg Social Fam HX - Past Medical History Medical history: arthritis, diabetes, hypertension, peripheral artery disease, renal disease Psychiatric history: no psych history - Past Surgical History Surgical History: cholecystectomy, hysterectomy - Social History Smoking Status: Never smoker Smokeless Tobacco Status: No Alcohol use: none Drug use: none - Family History Mother Hx Family Endocrine Disorder: Yes (DIABETES MELLITUS.) Medications and Allergies Aspirin 81 mg PO DAILY 01/07/16 [History] Bupropion HCl [Wellbutrin Xl] 300 mg PO DAILY 01/07/16 [History] Citalopram Hydrobromide [Celexa] 40 mg PO DAILY 01/07/16 [History] Cyclobenzaprine [Flexeril] 5 mg PO HS PRN 01/07/16 [History] Ergocalciferol (VITAMIN D2) [Vitamin D2 (50,000 UNIT)] 50,000 unit PO QWEEK MDD monday01/07/16 [History] Furosemide [Lasix] 40 mg PO DAILY 01/07/16 [History] Glimepiride [Amaryl] 2 mg PO DAILY 01/07/16 [History] Insulin Glargine,Hum.rec.anlog [Lantus Solostar] 40 unit SQ HS 01/07/16 [History ] Levothyroxine [Synthroid] 150 mcg PO DAILY 01/07/16 [History] Losartan Potassium [Cozaar] 50 mg PO DAILY 01/07/16 [History] Simvastatin [Zocor] 40 mg PO HS 01/07/16 [History] Amitriptyline HCl 10 mg PO HS 06/18/17 [History] Aripiprazole [Abilify] 2 mg PO DAILY 06/18/17 [History] Calcitriol 0.5 mcg PO DAILY 06/18/17 [History] Fluconazole [Diflucan] 50 mg PO DAILY 06/18/17 [History] Folic Acid 1 mg PO DAILY 06/18/17 [History] Iron Aspgly,Ps/C/B12/FA/Ca/Suc [Ferrex 150 Forte Plus Capsule] 1 each PO DAILY 06/18/17 [History] Nystatin Cream [Mycostatin Cream] 1 appl TP BID 06/18/17 [History] Pregabalin [Lyrica] 25 mg PO BID 06/18/17 [History] Tramadol HCl [Ultram] 50 mg PO BID PRN 06/18/17 [History] cephALEXin [Keflex] 250 mg PO DAILY 06/18/17 [History] Vitamin B Complex [B Complex] 1 tab PO DAILY 06/19/17 [History] 3 Allergy/AdvReac Type Severity Reaction Status Date / Time No Known Allergies Allergy Verified 06/18/17 13:05 Results - Labs Result Diagrams: 06/21/17 03:53 06/21/17 03:53 Labs: Abnormal lab results RBC 3.15 M/mcL (3.82-4.97) L 06/21/17 03:53 Hgb 7.9 g/dL (11.5-15.4) L 06/21/17 03:53 Hct 25.8 % (35.3-44.9) L 06/21/17 03:53 MCV 81.9 fL (83.0-100.0) L 06/21/17 03:53 MCH 25.1 pg (28.0-33.3) L 06/21/17 03:53 MCHC 30.6 g/dL (31.6-35.5) L 06/21/17 03:53 RDW 14.8 % (11.5-14.5) H 06/21/17 03:53 PT 14.0 Seconds (9.4-12.1) H 06/20/17 04:17 BUN 35 mg/dL (7-20) H D 06/21/17 03:53 Creatinine 3.07 mg/dL (0.57-1.11) H 06/21/17 03:53 Est GFR ( Amer) 18 (> 60) L 06/21/17 03:53 Est GFR (Non-Af Amer) 15 (> 60) L 06/21/17 03:53 Glucose 146 mg/dL (70-99) H 06/21/17 03:53 POC Glucose 118 (58-89) H 06/21/17 07:28 Phosphorus 5.7 mg/dL (2.3-4.7) H 06/20/17 04:17 Magnesium 1.2 mg/dL (1.6-2.6) L 06/20/17 04:17 Iron 16 mcg/dL (50-170) L 06/20/17 04:17 % Saturation 9 % (15-50) L 06/20/17 04:17 Transferrin 126 mg/dL (180-382) L 06/20/17 04:17 Ferritin 900 ng/ml (5-204) H 06/20/17 04:17 Albumin 2.2 g/dL (3.5-5.0) L D 06/20/17 04:17 Globulin 4.2 g/dL (2.4-3.5) H 06/20/17 04:17 Albumin/Globulin Ratio 0.5 (1.1-2.2) L 06/20/17 04:17 Urine Clarity Turbid (Clear) A 06/18/17 16:06 Ur Specific [place] 1.027 (1.010-1.025) H 06/18/17 16:06 Urine Bilirubin Small (Negative) H 06/18/17 16:06 Ur Leukocyte Esterase Moderate (Negative) H 06/18/17 16:06 Urine Microscopic WBC 15-30 per hpf (0-3) H 06/18/17 16:06 Ur Squamous Epith Cells Many per lpf (None-Few) H 06/18/17 16:06 Amorphous Sediment Many (Few) H 06/18/17 16:06 Urine Bacteria Moderate per hpf (None-Few) H 06/18/17 16:06 Ur Culture Indicated? YES (NO) A 06/18/17 16:06 H & H 06/21/17 06/21/17 Range/Units 03:53 03:53 Hgb 7.9 L 7.9 L (11.5-15.4) g/dL Hct 25.8 L 25.4 L (35.3-44.9) % All other labs normal. Consult Discharge Plan - Plan Referrals: Cha Freeman MD [Primary Care Provider] -
--- NOTE | 2017-06-21 12:43 | Electrocardiograph Report ---
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
--- NOTE | 2017-06-21 15:28 | Internal Med Progress Note ---
Date of Encounter: 06/21/17 Time of Encounter: 09:00 - Assessment and plan (1) UTI (urinary tract infection) Current Visit: Yes Status: Acute Assessment and plan: Symptoms resolved. Finished 3 day of ceftriaxone. Urine culture negative. Qualifiers: Urinary tract infection type: site unspecified Hematuria presence: with hematuria Qualified Code(s): N39.0 - Urinary tract infection, site not specified; R31.9 - Hematuria, unspecified; R31.9 - Hematuria, unspecified (2) CKD (chronic kidney disease) stage 4, GFR 15-29 ml/min Current Visit: Yes Status: Acute Assessment and plan: hx stage IV CKD being followed by Nephrology. Now with worsening renal function. Nephrology consulted and started hemodialysis. Renal ultrasound shows negative for hydronephrosis bilaterally. (3) Diabetes Current Visit: Yes Status: Acute Assessment and plan: No further hypoglycemia. We will continue sliding scale insulin at a low dose. Hold basal insulin. Closely monitor glucose level Qualifiers: Diabetes mellitus type: type 2 Diabetes mellitus complication status: without complication Diabetes mellitus terminal system operator insulin use: with terminal system operator use Qualified Code(s): E11.9 - Type 2 diabetes mellitus without complications ; Z79.4 - jail (current) use of insulin; Z79.4 - jail (current) use of insulin; Z79.4 - jail (current) use of insulin; Z79.4 - jail ( current) use of insulin (4) DVT prophylaxis Current Visit: Yes Status: Acute Assessment and plan: heparin sc (5) Hypertension Current Visit: Yes Status: Acute Assessment and plan: Continue home medications Qualifiers: Hypertension type: unspecified Qualified Code(s): I10 - Essential (primary ) hypertension (6) Hypomagnesemia Current Visit: Yes Status: Acute Assessment and plan: Magnesium supplement given, will repeat Mg in AM. (7) Anemia Current Visit: Yes Status: Acute Assessment and plan: Likely due to CKD. Continue monitoring H&H Qualifiers: Anemia type: due to chronic kidney disease Chronic kidney disease stage: stage 4 (severe) Qualified Code(s): N18.4 - Chronic kidney disease, stage 4 ( severe); D63.1 - Anemia in chronic kidney disease; D63.1 - Anemia in chronic kidney disease - Time Spent With Patient 25 - 35 minutes - Subjective Interval history: Patient was seen and examined. No further complaint. Denies dysuria or burning on urination, no urgency. Started HD yesterday. Vitals stable. Nephrology plan to have another HD today. Will d/c cherry today. - Constitutional Vitals: Temp Pulse Resp BP Pulse Ox 98.3 F 71 18 114/58 96 06/21/17 12:04 06/21/17 12:04 06/21/17 12:04 06/21/17 12:04 06/21/17 12:04 General appearance: Present: A&O X 3, no acute distress - Head Head exam: Present: atraumatic, normocephalic - Eye Eye exam: Present: PERRL, conjuntiva pink, sclera anicteric Pupils: Present: PERRL - Neck Neck exam general surgery: Present: supple, trachea midline. Absent: lymphadenopathy - Respiratory Respiratory exam: Present: CTAB. Absent: accessory muscle use, rales, rhonchi, wheezes - Cardiovascular Cardiovascular exam: Present: RRR, +S1, +S2. Absent: diastolic murmur, gallop, rubs, systolic murmur - GI/Abdominal GI/Abdominal exam: Present: normal bowel sounds, soft, no peritoneal signs. Absent: distended, tenderness - Extremities Exam Extremities exam: Present: warm, radial pulses palpable and symmetrical. Absent : calf tenderness, cyanotic, pedal edema - Neurological Exam Neurological exam: Present: CN II-XII intact, oriented X3, no focal deficits. Absent: pronater drift, facial droop, speech deficit - Skin Skin exam: Present: dry, intact Internal Medicine: Result - Labs CBC & Chem 7: 06/21/17 03:53 06/21/17 03:53 Labs: Short CBC 06/21/17 06/21/17 Range/Units 03:53 03:53 WBC 6.1 5.9 (4.3-11.1) K/mcL Hgb 7.9 L 7.9 L (11.5-15.4) g/dL Hct 25.8 L 25.4 L (35.3-44.9) % Plt Count 214 214 (140-400) K/mcL Neutrophils # 3.6 (1.6-8.9) K/mcL BMP 06/21/17 03:53 Sodium 138 Potassium 4.2 Chloride 104 Carbon Dioxide 23 BUN 35 H D Creatinine 3.07 H Glucose 146 H Calcium 9.0 - ABG Interpretation ABG results: PT/INR, D-dimer PT 14.0 Seconds (9.4-12.1) H 06/20/17 04:17 - Impressions Impressions Guidance Needle Placement Ultrasound 06/20/17 00:00 IMPRESSION: Successful placement of a temporary hemodialysis catheter through the right internal jugular vein as described above. D/ / Tyron Marie MD / Tyron Marie MD Interpreting Provider: Tyron Marie MD Insertion Non-Tunneled Catheter 06/20/17 00:00 IMPRESSION: Successful placement of a temporary hemodialysis catheter through the right internal jugular vein as described above. D/ / Tyron Marie MD / Tyron Marie MD Interpreting Provider: Tyron Marie MD Consult Discharge Plan - Plan Referrals: Cha Freeman MD [Primary Care Provider] -
[2017-06-21] MEDS: traMADol 50 MG TABLET PO PRN (23:53)
[2017-06-22 04:38] LABS: Hematocrit 24.8 % (35.3-44.9); Hemoglobin 7.9 g/dL (11.5-15.4); Mean Corpuscular HGB Conc 31.9 g/dL (31.6-35.5); Mean Corpuscular Hemoglobin 25.6 pg (28.0-33.3); Mean Corpuscular Volume 80.3 fL (83.0-100.0); Mean Platelet Volume 10.5 fL (9.4-12.4); Platelet Count 223 K/mcL (140-400); Red Blood Count 3.09 M/mcL (3.82-4.97); Red Cell Distribution Width 14.5 % (11.5-14.5)
[2017-06-22] MEDS: *HR* Heparin 5,000 UNIT/ML VIAL SQ SCH ×2 (05:47→16:24)
[2017-06-22] MEDS: Insulin LISPRO 300 UNITS/3 ML VIAL SQ SCH ×4 (08:43→20:26)
[2017-06-22] MEDS: BuPROPion XL (24 HR) 150 MG TABLET PO SCH (08:44)
[2017-06-22] MEDS: Aspirin 81 MG TAB.CHEW PO SCH (08:44)
[2017-06-22] MEDS: Folic Acid 1 MG TABLET PO SCH (08:44)
[2017-06-22] MEDS: ARIPiprazole 2 MG TABLET PO SCH (08:44)
[2017-06-22] MEDS: Iron Polysaccharide Complex 150 MG CAPSULE PO SCH (08:44)
[2017-06-22] MEDS: Pregabalin 25 MG CAPSULE PO SCH ×2 (08:44→20:25)
[2017-06-22] MEDS: Nystatin Cream 15 GM TUBE TP SCH ×2 (08:51→20:25)
--- NOTE | 2017-06-22 09:17 | Nephrology Progress Note ---
Date of Encounter: 06/22/17 Time of Encounter: 09:14 - Assessment and Plan (1) JOSELINE (acute kidney injury) Current Visit: Yes Status: Acute Scr 1.98 today from 3.07 yesterday; GFR 25 today, was 15 Will hold on HD today No I/Os recorded. MUST have strict I/Os; re-ordered Continue renal diet Avoid nephrotoxins if possible If patient needs ongoing dialysis after discharge, she would like to come to the [facility] clinic. (2) CKD (chronic kidney disease) stage 4, GFR 15-29 ml/min Current Visit: Yes Status: Acute see above Avoid nephrotoxins if possible (3) Anemia Current Visit: Yes Status: Acute Hgb 7.9 Continue epo/aranesp Goal hgb 10-11 Transfuse per parameters. Qualifiers: Anemia type: due to chronic kidney disease Chronic kidney disease stage: stage 4 (severe) Qualified Code(s): N18.4 - Chronic kidney disease, stage 4 ( severe); D63.1 - Anemia in chronic kidney disease; D63.1 - Anemia in chronic kidney disease (4) Hypomagnesemia Current Visit: Yes Status: Resolved (5) Hyperphosphatemia Current Visit: Yes Status: Acute Phos 5.7 Monitor closely-may need binder Continue renal diet (6) Hypertension Current Visit: Yes Status: Acute per primary care Qualifiers: Hypertension type: unspecified Qualified Code(s): I10 - Essential (primary ) hypertension Subjective Principal diagnosis: JOSELINE on CKD stage 4, HTN Interval history: Patient seen and examined. Sitting on side of bed, feeling better but still tired. Objective - Vital Signs Vital signs: Vital Signs Temp Pulse Resp BP Pulse Ox 06/22/17 07:47 97.6 F 64 20 96/60 96 06/22/17 07:05 99.0 F 78 20 124/63 98 06/22/17 03:34 97.6 F 70 18 94/60 94 06/21/17 23:46 98.0 F 91 18 97/59 97 06/21/17 18:24 98.1 F 82 18 118/68 96 06/21/17 17:55 97.7 F 18 110/49 06/21/17 17:20 109/53 06/21/17 16:50 114/54 06/21/17 16:20 115/54 06/21/17 15:50 118/60 06/21/17 15:20 122/54 06/21/17 14:50 97.4 F L 16 129/64 06/21/17 12:04 98.3 F 71 18 114/58 96 Intake and Output 06/21/17 06/22/17 06/22/17 23:59 07:59 15:59 Intake Total 200 / 200 Output Total 2600 / 2600 Balance -2400 / -2400 Intake: Oral 200 / 200 Output: Urine 0 / 0 Total Dialysis (HD) Output 2600 / 2600 Other: Meal Dinner Percent of Meal Consumed 20% # Voids 1 Weight 96.672 kg Blood Glucose* 267 100 Hemodialysis Net Fluid Removed 2000 (mL) Patient Weight 06/22/17 23:59 Weight 96.672 kg - General Appearance General appearance: Present: well-developed, well-nourished EENT: Present: ATNC, mucous membranes moist, hearing intact, vision intact Neck: Present: supple Respiratory: Present: clear Cardiology: Present: no edema, normal S1, normal S2 Dialysis Vascular Access: Venous Catheter Gastrointestinal: Present: no tenderness, no guarding Integumentary: Present: warm and dry Neurologic: Present: alert and oriented x3 Psychiatric: Present: mood/affect appropriate, cooperative - Lab 06/22/17 04:25 06/22/17 04:25 Most recent lab results Calcium 9.0 mg/dL (8.6-10.8) 06/22/17 04:25 Phosphorus 5.7 mg/dL (2.3-4.7) H 06/20/17 04:17 Magnesium 1.6 mg/dL (1.6-2.6) 06/22/17 04:25 Consult Discharge Plan - Plan Referrals: Cha Freeman MD [Primary Care Provider] -
[2017-06-22] MEDS: traMADol 50 MG TABLET PO PRN ×2 (13:38→20:25)
--- NOTE | 2017-06-22 15:24 | Internal Med Progress Note ---
Date of Encounter: 06/22/17 Time of Encounter: 09:00 - Assessment and plan (1) UTI (urinary tract infection) Current Visit: Yes Status: Acute Assessment and plan: Symptoms resolved. Finished 3 day of ceftriaxone. Urine culture negative. Qualifiers: Urinary tract infection type: site unspecified Hematuria presence: with hematuria Qualified Code(s): N39.0 - Urinary tract infection, site not specified; R31.9 - Hematuria, unspecified; R31.9 - Hematuria, unspecified (2) CKD (chronic kidney disease) stage 4, GFR 15-29 ml/min Current Visit: Yes Status: Acute Assessment and plan: hx stage IV CKD being followed by Nephrology. Now with worsening renal function. Nephrology consulted and started hemodialysis. Renal ultrasound shows negative for hydronephrosis bilaterally. (3) Diabetes Current Visit: Yes Status: Acute Assessment and plan: We will continue sliding scale insulin at a low dose. Hold basal insulin. Closely monitor glucose level Qualifiers: Diabetes mellitus type: type 2 Diabetes mellitus complication status: without complication Diabetes mellitus penitentiary insulin use: with terminal clerk use Qualified Code(s): E11.9 - Type 2 diabetes mellitus without complications ; Z79.4 - vermin exterminator (current) use of insulin; Z79.4 - custodial (current) use of insulin; Z79.4 - vermin exterminator (current) use of insulin; Z79.4 - vermin exterminator ( current) use of insulin (4) DVT prophylaxis Current Visit: Yes Status: Acute Assessment and plan: heparin sc (5) Hypertension Current Visit: Yes Status: Acute Assessment and plan: Continue home medications Qualifiers: Hypertension type: unspecified Qualified Code(s): I10 - Essential (primary ) hypertension (6) Hypomagnesemia Current Visit: Yes Status: Resolved Assessment and plan: Improved after supplement (7) Anemia Current Visit: Yes Status: Acute Assessment and plan: Likely due to CKD. Continue monitoring H&H Qualifiers: Anemia type: due to chronic kidney disease Chronic kidney disease stage: stage 4 (severe) Qualified Code(s): N18.4 - Chronic kidney disease, stage 4 ( severe); D63.1 - Anemia in chronic kidney disease; D63.1 - Anemia in chronic kidney disease - Time Spent With Patient 25 - 35 minutes - Subjective Interval history: Patient was seen and examined. No further complaint. Still weak but feels better. Started HD for two days. Vitals stable. Will cont closely monitor renal function and nephrology decide if cont HD or not. Plan to d/c to Rehab. - Constitutional Vitals: Temp Pulse Resp BP Pulse Ox 98.3 F 68 20 98/61 96 06/22/17 11:38 06/22/17 11:38 06/22/17 11:38 06/22/17 11:38 06/22/17 11:38 General appearance: Present: A&O X 3, no acute distress - Head Head exam: Present: atraumatic, normocephalic - Eye Eye exam: Present: PERRL, conjuntiva pink, sclera anicteric Pupils: Present: PERRL - Neck Neck exam general surgery: Present: supple, trachea midline. Absent: lymphadenopathy - Respiratory Respiratory exam: Present: CTAB. Absent: accessory muscle use, rales, rhonchi, wheezes - Cardiovascular Cardiovascular exam: Present: RRR, +S1, +S2. Absent: diastolic murmur, gallop, rubs, systolic murmur - GI/Abdominal GI/Abdominal exam: Present: normal bowel sounds, soft, no peritoneal signs. Absent: distended, tenderness - Extremities Exam Extremities exam: Present: warm, radial pulses palpable and symmetrical. Absent : calf tenderness, cyanotic, pedal edema - Neurological Exam Neurological exam: Present: CN II-XII intact, oriented X3, no focal deficits. Absent: pronater drift, facial droop, speech deficit - Skin Skin exam: Present: dry, intact Internal Medicine: Result - Labs CBC & Chem 7: 06/22/17 04:25 06/22/17 04:25 Labs: Short CBC 06/22/17 Range/Units 04:25 WBC 7.2 (4.3-11.1) K/mcL Hgb 7.9 L (11.5-15.4) g/dL Hct 24.8 L (35.3-44.9) % Plt Count 223 (140-400) K/mcL BMP 06/22/17 04:25 Sodium 138 Potassium 4.0 Chloride 100 Carbon Dioxide 27 BUN 21 H D Creatinine 1.98 H Glucose 89 Calcium 9.0 - ABG Interpretation ABG results: PT/INR, D-dimer PT 14.0 Seconds (9.4-12.1) H 06/20/17 04:17 - Impressions Impressions Lumbar Spine MRI 06/19/17 12:49 IMPRESSION: Mild spondylosis worst at L4-5 and L5-S1 where there is mild to moderate foraminal stenosis. D/ / 06/19/2017 15:51:50 Curly Yadav MD / Silvia Montanez Interpreting Provider: Curly Yadav MD Consult Discharge Plan - Plan Referrals: Cha Freeman MD [Primary Care Provider] -
[2017-06-22] MEDS: D5% in 0.9% NACL 1,000 ML IVC SCH (19:43)
[2017-06-23 04:26] LABS: Hematocrit 24.2 % (35.3-44.9); Hemoglobin 7.8 g/dL (11.5-15.4); Mean Corpuscular HGB Conc 32.2 g/dL (31.6-35.5); Mean Corpuscular Hemoglobin 25.6 pg (28.0-33.3); Mean Corpuscular Volume 79.3 fL (83.0-100.0); Mean Platelet Volume 10.8 fL (9.4-12.4); Platelet Count 248 K/mcL (140-400); Red Blood Count 3.05 M/mcL (3.82-4.97); Red Cell Distribution Width 14.6 % (11.5-14.5)
[2017-06-23 04:37] LABS: Calcium 8.9 mg/dL (8.6-10.8); Potassium 3.9 mEq/L (3.5-4.5)
[2017-06-23] MEDS: *HR* Heparin 5,000 UNIT/ML VIAL SQ SCH ×2 (05:51→19:43)
[2017-06-23] MEDS: traMADol 50 MG TABLET PO PRN ×2 (05:51→23:52)
[2017-06-23] MEDS: Iron Polysaccharide Complex 150 MG CAPSULE PO SCH (10:06)
[2017-06-23] MEDS: Aspirin 81 MG TAB.CHEW PO SCH (10:06)
[2017-06-23] MEDS: Insulin LISPRO 300 UNITS/3 ML VIAL SQ SCH ×4 (10:06→23:48)
[2017-06-23] MEDS: Folic Acid 1 MG TABLET PO SCH (10:06)
[2017-06-23] MEDS: Pregabalin 25 MG CAPSULE PO SCH ×2 (10:06→21:30)
[2017-06-23] MEDS: ARIPiprazole 2 MG TABLET PO SCH (10:06)
[2017-06-23] MEDS: BuPROPion XL (24 HR) 150 MG TABLET PO SCH (10:07)
[2017-06-23] MEDS: Nystatin Cream 15 GM TUBE TP SCH ×2 (10:20→21:30)
--- NOTE | 2017-06-23 14:56 | Internal Med Progress Note ---
Date of Encounter: 06/23/17 Time of Encounter: 10:00 - Assessment and plan (1) UTI (urinary tract infection) Current Visit: Yes Status: Acute Assessment and plan: Symptoms resolved. Finished 3 day of ceftriaxone. Urine culture negative. Qualifiers: Urinary tract infection type: site unspecified Hematuria presence: with hematuria Qualified Code(s): N39.0 - Urinary tract infection, site not specified; R31.9 - Hematuria, unspecified; R31.9 - Hematuria, unspecified (2) CKD (chronic kidney disease) stage 4, GFR 15-29 ml/min Current Visit: Yes Status: Acute Assessment and plan: hx stage IV CKD being followed by Nephrology. Now with worsening renal function. Nephrology consulted and started hemodialysis. Renal ultrasound shows negative for hydronephrosis bilaterally. HD hold for two days, acceptable urine output and Cr level. Nephrology consult on case and further recommendation will be followed. (3) Diabetes Current Visit: Yes Status: Acute Assessment and plan: We will continue sliding scale insulin at a low dose. Hold basal insulin. 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 Qualified Code(s): E11.9 - Type 2 diabetes mellitus without complications ; Z79.4 - environmental educator (current) use of insulin; Z79.4 - [facility] (current) use of insulin; Z79.4 - [facility] (current) use of insulin; Z79.4 - [facility] ( current) use of insulin (4) DVT prophylaxis Current Visit: Yes Status: Acute Assessment and plan: heparin sc (5) Hypertension Current Visit: Yes Status: Acute Assessment and plan: Hold losartan as BP is not high Qualifiers: Hypertension type: unspecified Qualified Code(s): I10 - Essential (primary ) hypertension (6) Hypomagnesemia Current Visit: Yes Status: Resolved Assessment and plan: Improved after supplement (7) Anemia Current Visit: Yes Status: Acute Assessment and plan: Likely due to CKD. Continue monitoring H&H Qualifiers: Anemia type: due to chronic kidney disease Chronic kidney disease stage: stage 4 (severe) Qualified Code(s): N18.4 - Chronic kidney disease, stage 4 ( severe); D63.1 - Anemia in chronic kidney disease; D63.1 - Anemia in chronic kidney disease - Time Spent With Patient 25 - 35 minutes - Subjective Interval history: Patient was seen and examined. No further complaint. Still weak but feels better. Hold HD day two. Vitals stable. Cr 2.22 today. Nephrology to decide if cont HD or not. Plan to d/c to Rehab. - Constitutional Vitals: Temp Pulse Resp BP Pulse Ox 97.8 F 69 14 116/68 96 06/23/17 10:51 06/23/17 10:51 06/23/17 10:51 06/23/17 10:51 06/23/17 10:51 General appearance: Present: A&O X 3, no acute distress - Head Head exam: Present: atraumatic, normocephalic - Eye Eye exam: Present: PERRL, conjuntiva pink, sclera anicteric Pupils: Present: PERRL - Neck Neck exam general surgery: Present: supple, trachea midline. Absent: lymphadenopathy - Respiratory Respiratory exam: Present: CTAB. Absent: accessory muscle use, rales, rhonchi, wheezes - Cardiovascular Cardiovascular exam: Present: RRR, +S1, +S2. Absent: diastolic murmur, gallop, rubs, systolic murmur - GI/Abdominal GI/Abdominal exam: Present: normal bowel sounds, soft, no peritoneal signs. Absent: distended, tenderness - Extremities Exam Extremities exam: Present: pedal edema (Mild pedal edema b/l), warm, radial pulses palpable and symmetrical. Absent: calf tenderness, cyanotic - Neurological Exam Neurological exam: Present: CN II-XII intact, oriented X3, no focal deficits. Absent: pronater drift, facial droop, speech deficit - Skin Skin exam: Present: dry, intact Internal Medicine: Result - Labs CBC & Chem 7: 06/23/17 03:51 06/23/17 03:51 Labs: Short CBC 06/23/17 Range/Units 03:51 WBC 8.3 (4.3-11.1) K/mcL Hgb 7.8 L (11.5-15.4) g/dL Hct 24.2 L (35.3-44.9) % Plt Count 248 (140-400) K/mcL BMP 06/23/17 03:51 Sodium 133 L Potassium 3.9 Chloride 97 L Carbon Dioxide 23 BUN 30 H Creatinine 2.22 H Glucose 109 H Calcium 8.9 - ABG Interpretation ABG results: PT/INR, D-dimer PT 14.0 Seconds (9.4-12.1) H 06/20/17 04:17 Consult Discharge Plan - Plan Referrals: Cha Freeman MD [Primary Care Provider] -
--- NOTE | 2017-06-23 15:22 | Nephrology Progress Note ---
Date of Encounter: 06/23/17 Time of Encounter: 14:00 - Assessment and Plan (1) JOSELINE (acute kidney injury) Current Visit: Yes Status: Acute SCr slightly worse at 2.2, GFR 22 but given improving UOP, will withhold HD today and monitor for signs of renal recovery Continue to avoid nephrotoxins if possible Po fluids encouraged (2) CKD (chronic kidney disease) stage 4, GFR 15-29 ml/min Current Visit: Yes Status: Acute Subjective Principal diagnosis: JOSELINE on CKD stage 4, HTN Interval history: Interim events noted. Pt seen and examined well known to me from outpatient [facility]. Feeling better today with son at bedside. Making more urine today so far than previous. 500cc already documented Objective - Vital Signs Vital signs: Vital Signs Temp Pulse Resp BP Pulse Ox 06/23/17 14:58 97.8 F 70 15 128/60 96 06/23/17 10:51 97.8 F 69 14 116/68 96 06/23/17 07:46 97.7 F 64 17 103/59 94 06/23/17 04:22 98.1 F 65 15 109/65 95 06/22/17 23:58 98.3 F 67 16 111/68 96 06/22/17 19:46 98.1 F 76 15 124/71 95 06/22/17 15:26 98.4 F 72 18 94/55 96 Intake and Output 06/22/17 06/23/17 06/23/17 23:59 07:59 15:59 Intake Total 120 / 120 0 / 0 730 / 730 Output Total 0 / 0 200 / 200 500 / 500 Balance 120 / 120 -200 / -200 230 / 230 Intake: Oral 120 / 120 0 / 0 730 / 730 Output: Urine 0 / 0 200 / 200 500 / 500 Other: Meal Dinner Breakfast Percent of Meal Consumed 90% 100% # Voids 2 Weight 96.8 kg Blood Glucose* 178 113 238 Patient Weight 06/23/17 23:59 Weight 96.8 kg - General Appearance General appearance: Present: well-developed, well-nourished EENT: Present: ATNC, mucous membranes moist Neck: Present: no JVD, supple Respiratory: Present: clear Cardiology: Present: no edema, normal S1, normal S2 Dialysis Vascular Access: Venous Catheter (temp IJ) Gastrointestinal: Present: no tenderness, no guarding, obese Integumentary: Present: warm and dry Neurologic: Present: no focal deficit Musculoskeletal: Present: no deformities Psychiatric: Present: mood/affect appropriate, cooperative - Lab 06/23/17 03:51 06/23/17 03:51 Most recent lab results Calcium 8.9 mg/dL (8.6-10.8) 06/23/17 03:51 Phosphorus 5.7 mg/dL (2.3-4.7) H 06/20/17 04:17 Magnesium 1.6 mg/dL (1.6-2.6) 06/22/17 04:25 Consult Discharge Plan - Plan Referrals: Cha Freeman MD [Primary Care Provider] -
[2017-06-24 06:30] LABS: Hematocrit 25.4 % (35.3-44.9); Hemoglobin 8.2 g/dL (11.5-15.4); Mean Corpuscular HGB Conc 32.3 g/dL (31.6-35.5); Mean Corpuscular Hemoglobin 25.5 pg (28.0-33.3); Mean Corpuscular Volume 78.9 fL (83.0-100.0); Mean Platelet Volume 10.3 fL (9.4-12.4); Platelet Count 227 K/mcL (140-400); Red Blood Count 3.22 M/mcL (3.82-4.97); Red Cell Distribution Width 14.6 % (11.5-14.5)
[2017-06-24] MEDS: *HR* Heparin 5,000 UNIT/ML VIAL SQ SCH ×2 (06:31→18:26)
[2017-06-24 06:50] LABS: Potassium 4.1 mEq/L (3.5-4.5)
[2017-06-24] MEDS: Insulin LISPRO 300 UNITS/3 ML VIAL SQ SCH ×4 (07:30→20:59)
[2017-06-24] MEDS: Pregabalin 25 MG CAPSULE PO SCH ×2 (09:31→20:59)
[2017-06-24] MEDS: Folic Acid 1 MG TABLET PO SCH (09:32)
[2017-06-24] MEDS: ARIPiprazole 2 MG TABLET PO SCH (09:32)
[2017-06-24] MEDS: BuPROPion XL (24 HR) 150 MG TABLET PO SCH (09:32)
[2017-06-24] MEDS: Aspirin 81 MG TAB.CHEW PO SCH (09:32)
[2017-06-24] MEDS: Iron Polysaccharide Complex 150 MG CAPSULE PO SCH (09:32)
[2017-06-24] MEDS: Nystatin Cream 15 GM TUBE TP SCH ×2 (09:33→20:59)
--- NOTE | 2017-06-24 09:58 | Nephrology Progress Note ---
Date of Encounter: 06/24/17 Time of Encounter: 10:20 - Assessment and Plan (1) JOSELINE (acute kidney injury) Current Visit: Yes Status: Acute SCr slightly worse at 2.3, GFR 21 with improved UOP at 1300cc in the past 24hrs , will withhold HD today and monitor for signs of renal recovery Continue to avoid nephrotoxins if possible Po fluids encouraged (2) CKD (chronic kidney disease) stage 4, GFR 15-29 ml/min Current Visit: Yes Status: Acute Subjective Principal diagnosis: JOSELINE on CKD stage 4, HTN Interval history: Interim events noted. Pt seen and examined well known to me from outpatient [facility]. Feeling better today with son at bedside. Making more urine today so far than previous. 500cc already documented Objective - Vital Signs Vital signs: Vital Signs Temp Pulse Resp BP Pulse Ox 06/24/17 04:19 98.2 F 84 15 109/60 95 06/23/17 23:49 97.8 F 71 15 132/60 97 06/23/17 18:41 98.1 F 69 15 116/68 94 06/23/17 14:58 97.8 F 70 15 128/60 96 06/23/17 10:51 97.8 F 69 14 116/68 96 Intake and Output 06/23/17 06/24/17 06/24/17 23:59 07:59 15:59 Intake Total 600 / 600 Output Total 600 / 600 525 / 525 Balance 0 / 0 -525 / -525 Intake: Oral 600 / 600 Output: Urine 600 / 600 525 / 525 Other: # Voids 1 Weight 98.4 kg Blood Glucose* 138 113 Patient Weight 06/24/17 23:59 Weight 98.4 kg - Lab 06/24/17 06:15 06/24/17 06:15 Most recent lab results Calcium 9.0 mg/dL (8.6-10.8) 06/24/17 06:15 Phosphorus 5.7 mg/dL (2.3-4.7) H 06/20/17 04:17 Magnesium 1.6 mg/dL (1.6-2.6) 06/22/17 04:25 Consult Discharge Plan - Plan Referrals: Cha Freeman MD [Primary Care Provider] -
--- NOTE | 2017-06-24 12:07 | Internal Med Progress Note ---
Date of Encounter: 06/24/17 Time of Encounter: 09:00 - Assessment and plan (1) UTI (urinary tract infection) Current Visit: Yes Status: Resolved Assessment and plan: Symptoms resolved. Finished 3 day of ceftriaxone. Urine culture negative. Qualifiers: Urinary tract infection type: site unspecified Hematuria presence: with hematuria Qualified Code(s): N39.0 - Urinary tract infection, site not specified; R31.9 - Hematuria, unspecified; R31.9 - Hematuria, unspecified (2) CKD (chronic kidney disease) stage 4, GFR 15-29 ml/min Current Visit: Yes Status: Acute Assessment and plan: hx stage IV CKD being followed by Nephrology. Now with worsening renal function. Nephrology consulted and started hemodialysis. Renal ultrasound shows negative for hydronephrosis bilaterally. HD hold for three days, acceptable urine output and Cr level. Nephrology consult on case and further recommendation will be followed. (3) Diabetes Current Visit: Yes Status: Acute Assessment and plan: We will continue sliding scale insulin at a low dose. Hold basal insulin. Closely monitor glucose level. May D/C home basal insulin upon discharge as pt developped hypoglycemia in hospital. 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 intermodal truck driver use Qualified Code(s): E11.9 - Type 2 diabetes mellitus without complications ; Z79.4 - rodent exterminator (current) use of insulin; Z79.4 - jail (current) use of insulin; Z79.4 - rodent exterminator (current) use of insulin; Z79.4 - rodent exterminator ( current) use of insulin (4) DVT prophylaxis Current Visit: Yes Status: Acute Assessment and plan: heparin sc (5) Hypertension Current Visit: Yes Status: Acute Assessment and plan: Hold losartan as BP is not high Qualifiers: Hypertension type: unspecified Qualified Code(s): I10 - Essential (primary ) hypertension (6) Hypomagnesemia Current Visit: Yes Status: Resolved Assessment and plan: Improved after supplement (7) Anemia Current Visit: Yes Status: Acute Assessment and plan: Likely due to CKD. Continue monitoring H&H Qualifiers: Anemia type: due to chronic kidney disease Chronic kidney disease stage: stage 4 (severe) Qualified Code(s): N18.4 - Chronic kidney disease, stage 4 ( severe); D63.1 - Anemia in chronic kidney disease; D63.1 - Anemia in chronic kidney disease - Time Spent With Patient 25 - 35 minutes - Subjective Interval history: Patient was seen and examined. No further complaint. Still weak. Hold HD day three. Vitals stable. Cr 2.3 today. Nephrology to decide if cont HD or not. Cont PT/OT, Plan to d/c to Rehab. - Constitutional Vitals: Temp Pulse Resp BP Pulse Ox 98.2 F 84 15 109/60 95 06/24/17 04:19 06/24/17 04:19 06/24/17 04:19 06/24/17 04:19 06/24/17 04:19 General appearance: Present: A&O X 3, no acute distress - Head Head exam: Present: atraumatic, normocephalic - Eye Eye exam: Present: PERRL, conjuntiva pink, sclera anicteric Pupils: Present: PERRL - Neck Neck exam general surgery: Present: supple, trachea midline. Absent: lymphadenopathy - Respiratory Respiratory exam: Present: CTAB. Absent: accessory muscle use, rales, rhonchi, wheezes - Cardiovascular Cardiovascular exam: Present: RRR, +S1, +S2. Absent: diastolic murmur, gallop, rubs, systolic murmur - GI/Abdominal GI/Abdominal exam: Present: normal bowel sounds, soft, no peritoneal signs. Absent: distended, tenderness - Extremities Exam Extremities exam: Present: pedal edema (Mild pedal edema b/l), warm, radial pulses palpable and symmetrical. Absent: calf tenderness, cyanotic - Neurological Exam Neurological exam: Present: CN II-XII intact, oriented X3, no focal deficits. Absent: pronater drift, facial droop, speech deficit - Skin Skin exam: Present: dry, intact Internal Medicine: Result - Labs CBC & Chem 7: 06/24/17 06:15 06/24/17 06:15 Labs: Short CBC 06/24/17 Range/Units 06:15 WBC 6.7 (4.3-11.1) K/mcL Hgb 8.2 L (11.5-15.4) g/dL Hct 25.4 L (35.3-44.9) % Plt Count 227 (140-400) K/mcL BMP 06/24/17 06:15 Sodium 135 L Potassium 4.1 Chloride 99 Carbon Dioxide 28 BUN 35 H Creatinine 2.30 H Glucose 95 Calcium 9.0 - ABG Interpretation ABG results: PT/INR, D-dimer PT 14.0 Seconds (9.4-12.1) H 06/20/17 04:17 Consult Discharge Plan - Plan Referrals: Cha Freeman MD [Primary Care Provider] -
[2017-06-25 03:30] LABS: Calcium 9.3 mg/dL (8.6-10.8); Potassium 4.7 mEq/L (3.5-4.5)
[2017-06-25 03:41] LABS: Basophils % 0.5 %; Eosinophils # 0.2 K/mcL (0.0-0.6); Eosinophils % 2.4 %; Hematocrit 25.5 % (35.3-44.9); Hemoglobin 8.2 g/dL (11.5-15.4); Immature Granulocytes % 3.1 % (0-4); Lymphocytes # 2.4 K/mcL (0.6-4.6); Lymphocytes % 36.8 %; Mean Corpuscular HGB Conc 32.2 g/dL (31.6-35.5); Mean Platelet Volume 10.8 fL (9.4-12.4); Monocytes # 0.4 K/mcL (0.0-1.3); Monocytes % 6.7 %; Neutrophils # 3.2 K/mcL (1.6-8.9); Platelet Count 238 K/mcL (140-400); Red Blood Count 3.15 M/mcL (3.82-4.97); Red Cell Distribution Width 14.6 % (11.5-14.5); Segmented Neutrophils % 50.5 %
[2017-06-25] MEDS: traMADol 50 MG TABLET PO PRN (05:28)
[2017-06-25] MEDS: *HR* Heparin 5,000 UNIT/ML VIAL SQ SCH (05:28)
[2017-06-25] MEDS: Insulin LISPRO 300 UNITS/3 ML VIAL SQ SCH ×2 (09:18→12:00)
[2017-06-25] MEDS: Pregabalin 25 MG CAPSULE PO SCH (09:25)
[2017-06-25] MEDS: Iron Polysaccharide Complex 150 MG CAPSULE PO SCH (09:26)
[2017-06-25] MEDS: Aspirin 81 MG TAB.CHEW PO SCH (09:26)
[2017-06-25] MEDS: Folic Acid 1 MG TABLET PO SCH (09:26)
[2017-06-25] MEDS: BuPROPion XL (24 HR) 150 MG TABLET PO SCH (09:26)
[2017-06-25] MEDS: ARIPiprazole 2 MG TABLET PO SCH (09:26)
[2017-06-25] MEDS: Nystatin Cream 15 GM TUBE TP SCH (09:28)
[2017-06-25 11:09] VITALS: BP 108/63
[2017-06-25] MEDS ORDERED: Acetaminophen 325 MG TABLET PO PRN (11:46)
--- NOTE | 2017-06-25 12:58 | Nephrology Progress Note ---
Date of Encounter: 06/25/17 Time of Encounter: 12:30 - Assessment and Plan (1) JOSELINE (acute kidney injury) Current Visit: Yes Status: Acute SCr improved at 1.98 from 2.3 yesterday which is an obvious sign of renal recovery Will discontinue HD temp atheter as will no longer be needed Continue to avoid nephrotoxins if possible Po fluids encouraged Will need repeat BMP within days on discharge and followup with me within 2weeks (2) CKD (chronic kidney disease) stage 4, GFR 15-29 ml/min Current Visit: Yes Status: Acute Baseline GFR in the 20s Subjective Principal diagnosis: JOSELINE on CKD stage 4, HTN Interval history: Pt seen and examined with no new complaints Objective - Vital Signs Vital signs: Vital Signs Temp Pulse Resp BP Pulse Ox 06/25/17 11:08 97.9 F 67 16 108/63 94 06/25/17 07:49 98.2 F 60 1 116/69 95 06/25/17 00:21 98.2 F 64 20 127/71 97 06/24/17 20:25 98.0 F 64 18 120/74 98 06/24/17 13:02 97.5 F L 69 14 127/69 97 Intake and Output 06/24/17 06/25/17 06/25/17 23:59 07:59 15:59 Intake Total 480 / 480 0 / 0 360 / 360 Output Total 0 / 0 900 / 900 0 / 0 Balance 480 / 480 -900 / -900 360 / 360 Intake: Oral 480 / 480 0 / 0 360 / 360 Output: Urine 0 / 0 900 / 900 0 / 0 Other: Meal Dinner Breakfast Percent of Meal Consumed 100% 100% # Voids 1 Weight 98.248 kg Blood Glucose* 149 100 165 Patient Weight 06/25/17 23:59 Weight 98.248 kg - General Appearance General appearance: Present: well-developed, well-nourished (NAD) EENT: Present: ATNC, mucous membranes moist Neck: Present: no JVD, supple Respiratory: Present: clear Cardiology: Present: no edema, normal S1, normal S2 Dialysis Vascular Access: Venous Catheter (temp IJ) Gastrointestinal: Present: no tenderness, no guarding Integumentary: Present: warm and dry Neurologic: Present: no focal deficit Musculoskeletal: Present: no deformities Psychiatric: Present: mood/affect appropriate, cooperative - Lab 06/25/17 03:12 12/10/17 03:12 Most recent lab results Calcium 9.3 mg/dL (8.6-10.8) 06/25/17 03:12 Phosphorus 5.7 mg/dL (2.3-4.7) H 06/20/17 04:17 Magnesium 1.6 mg/dL (1.6-2.6) 06/22/17 04:25 Consult Discharge Plan - Plan Referrals: Cha Freeman MD [Primary Care Provider] -
--- NOTE | 2017-06-25 13:19 | Discharge Summary ---
Date of Encounter: 06/25/17 Time of Encounter: 12:00 - Discharge Diagnosis (1) UTI (urinary tract infection) Priority: Primary Status: Resolved Qualifiers: Urinary tract infection type: site unspecified Hematuria presence: with hematuria Qualified Code(s): N39.0 - Urinary tract infection, site not specified; R31.9 - Hematuria, unspecified; R31.9 - Hematuria, unspecified (2) CKD (chronic kidney disease) stage 4, GFR 15-29 ml/min Priority: Primary Status: Acute (3) Diabetes Priority: Secondary Status: Acute Qualifiers: Diabetes mellitus type: type 2 Diabetes mellitus complication status: without complication Diabetes mellitus fdc insulin use: with rodent exterminator use Qualified Code(s): E11.9 - Type 2 diabetes mellitus without complications ; Z79.4 - long-term (current) use of insulin; Z79.4 - long-term (current) use of insulin; Z79.4 - long-term (current) use of insulin; Z79.4 - long term care pharmacist ( current) use of insulin (4) DVT prophylaxis Priority: Secondary Status: Acute (5) Hypertension Priority: Secondary Status: Acute Qualifiers: Hypertension type: unspecified Qualified Code(s): I10 - Essential (primary ) hypertension (6) Hypomagnesemia Priority: Secondary Status: Resolved (7) Anemia Priority: Secondary Status: Acute Qualifiers: Anemia type: due to chronic kidney disease Chronic kidney disease stage: stage 4 (severe) Qualified Code(s): N18.4 - Chronic kidney disease, stage 4 ( severe); D63.1 - Anemia in chronic kidney disease; D63.1 - Anemia in chronic kidney disease - Discharge Medications Home Medications: Aspirin 81 mg PO DAILY 01/07/16 [History] Bupropion HCl [Wellbutrin Xl] 300 mg PO DAILY 01/07/16 [History] Citalopram Hydrobromide [Celexa] 40 mg PO DAILY 01/07/16 [History] Cyclobenzaprine [Flexeril] 5 mg PO HS PRN 01/07/16 [History] Ergocalciferol (VITAMIN D2) [Vitamin D2 (50,000 UNIT)] 50,000 unit PO QWEEK MDD monday01/07/16 [History] Glimepiride [Amaryl] 2 mg PO DAILY 01/07/16 [History] Levothyroxine [Synthroid] 150 mcg PO DAILY 01/07/16 [History] Simvastatin [Zocor] 40 mg PO HS 01/07/16 [History] Amitriptyline HCl 10 mg PO HS 06/18/17 [History] Aripiprazole [Abilify] 2 mg PO DAILY 06/18/17 [History] Calcitriol 0.5 mcg PO DAILY 06/18/17 [History] Folic Acid 1 mg PO DAILY 06/18/17 [History] Iron Aspgly,Ps/C/B12/FA/Ca/Suc [Ferrex 150 Forte Plus Capsule] 1 each PO DAILY 06/18/17 [History] Nystatin Cream [Mycostatin Cream] 1 appl TP BID 06/18/17 [History] Pregabalin [Lyrica] 25 mg PO BID 06/18/17 [History] Tramadol HCl [Ultram] 50 mg PO BID PRN 06/18/17 [History] Vitamin B Complex [B Complex] 1 tab PO DAILY 06/19/17 [History] Ferrous Sulfate 325 mg PO QWEEK tablet 06/25/17 [Rx] Insulin Glargine,Hum.rec.anlog [Lantus Solostar] 10 unit SQ HS #0 06/25/17 [Rx] Losartan Potassium [Cozaar] 25 mg PO DAILY #0 06/25/17 [Rx] Allergies/Adverse Reactions: 3 Allergy/AdvReac Type Severity Reaction Status Date / Time No Known Allergies Allergy Verified 06/18/17 13:05 - Notes to Outpatient Provider 1. Patient's medication has been adjusted: Decrease losartan dose from 50 mg daily to 25 mg daily. Decrease Lantus from 40 units at bedtime to 10 units at bedtime. Patient's Lasix 40 mg by mouth daily is discontinued. Patient will continue Glimepiride 2mg by mouth daily. Please follow-up her BP, glucose, and fluid status and make further adjustment as needed. 2. Please check BMP in 1 week after discharge and send result to patient's consumer experience consultant Dr. Hess. Date of admission: 06/18/17 20:13 Primary care physician: Cha Freeman MD Consults: 06/18/17 20:32 Consult to Nephrology [CONS] Routine Consulting Provider: Kidney Yue/RACHELLE/GEOVANNI/YUDELKA Reason for Consult: Worsening renal function Call Completed: No 06/19/17 11:12 Consult to Physical Therapy [CONS] Routine Comment: Evaluate, develop and implement POC Reason for Consult: ? need for SNF, ECF OT [Consult to Occupational Therapy] [CONS] Routine Comment: Evaluate, develop and implement POC Reason for Consult: ? need for SNF, ECF 06/19/17 17:14 Consult to Physician [CONS] Routine Consulting Provider: Grant Smart Jr Reason for Consult: Mild to moderate lumbar foraminal stenosis. Call Completed: Yes 06/20/17 09:02 Consult to Interventional Radiology [CONS] Routine Consulting Provider: Radiology Interventional Cols Reason for Consult: Please evaluate for placement of a temporary HD catheter. Thank you. Call Completed: Yes 06/20/17 09:15 Consult to Dialysis [CONS] ONCE 06/21/17 04:30 Consult to Dialysis [CONS] ONCE Discharging clinician: Chris Holly Anticipated date of discharge: 06/25/17 - Patient Status Disposition: Home, Self-Care Condition: Good Functional capacity at discharge: uses cane/walker Overall status at discharge: patient is back to baseline - Discharge Instructions Follow Up With: Cha Freeman MD [Primary Care Provider] - 06/30/17 Ny Silvestre MD [Partnered Physician] - 07/07/17 Forms: ED Satisfaction Letter, Work/School Release - Diet and Activity Activity: increase activity as tolerated Diet: diabetic diet Hospital course: Ms. Trevizo is a 72 year old female was admitted for JOSELINE on CKD, and UTI. She was placed on Rocephin IV. Nephrology consult was called and hemodialysis started. After treatment, patient's condition has improved. Hemodialysis was on hold by nephrology and the patient continuous having good urine output and stable creatinine level for 4 days. Cart Pusher decided not to continue hemodialysis and patient will discharge home and closely monitor renal function , follow-up with nephrology as outpatient. Patient has developed hypoglycemia during hospitalization, her insulin regimen has been adjusted. Patient's urine culture is negative, antibiotics for UTI has been finished after 3 days. Patient was initially recommended to go to ECF by PTOT, however, patient's physical condition has improved and patient refuse to go to ECF but would like to go home. She said her daughter visits her every day and that she does not need home health. Will discharge patient home and a follow-up as outpatient with nephrology and PCP. I saw and examined the patient today. She is awake alert and oriented 3. Feels fine. Can walk around the room and in the hallway. We will discharge her home. We will check BMP in 1 week and send the result to patient's consumer experience consultant. Patient will also follow-up with PCP in 1 week. Patient's Lantus dose will decrease from 40 units at at bedtime to 10 unit at bedtime. Patient understand how to check her blood sugar and does this at home. Patient is further educated the symptoms of hypoglycemia and how to self treat it. Her losartan dose also decreased because her BP is not high. Patient will see PCP in one week to further check glucose and BP and adjust the medication as needed. - Time Spent with Patient Total time spent providing and/or coordinating discharge services: 40 min - Constitutional Vitals: Temp Pulse Resp BP Pulse Ox 97.9 F 67 16 108/63 94 06/25/17 11:08 06/25/17 11:08 06/25/17 11:08 06/25/17 11:08 06/25/17 11:08 General appearance: Present: A&O X 3, no acute distress - Head Head exam: Present: atraumatic, normocephalic - Eye Eye exam: Present: PERRL, conjuntiva pink, sclera anicteric Pupils: Present: PERRL - Neck Neck exam general surgery: Present: supple, trachea midline. Absent: lymphadenopathy - Respiratory Respiratory exam: Present: CTAB. Absent: accessory muscle use, rales, rhonchi, wheezes - Cardiovascular Cardiovascular exam: Present: RRR, +S1, +S2. Absent: diastolic murmur, gallop, rubs, systolic murmur - GI/Abdominal GI/Abdominal exam: Present: normal bowel sounds, soft, no peritoneal signs. Absent: distended, tenderness - Extremities Exam Extremities exam: Present: warm, radial pulses palpable and symmetrical. Absent : calf tenderness, cyanotic, pedal edema - Neurological Exam Neurological exam: Present: CN II-XII intact, oriented X3, no focal deficits. Absent: pronater drift, facial droop, speech deficit - Skin Skin exam: Present: dry, intact
== END 2017-06-25 15:30 | disposition home or self-care (01) | DRG 690 ==
LOC: EMEROO 12:45 → 3BNU 12:45 → 3ANU 06-20 03:27
PROVIDERS: ADMIT Hospitalist; ATTEND Registered Nurse

== ENCOUNTER 2017-07-05 16:06 | Inpatient (IN) ==
--- NOTE | 2017-07-05 18:16 | Emergency Department Note ---
Disposition Clinical Impression: Ankle swelling Qualifiers: Laterality: right Qualified Code(s): M25.471 - Effusion, right ankle Chronic kidney disease Qualifiers: Chronic kidney disease stage: unspecified stage Qualified Code(s): N18.9 - Chronic kidney disease, unspecified Septic joint Qualifiers: Septic arthritis location: ankle Septic arthritis organism: due to unspecified organism Laterality: right Qualified Code(s): M00.9 - Pyogenic arthritis, unspecified Disposition: Admitted As Inpatient Condition: Fair Referrals: Cha Freeman MD [Primary Care Provider] - Forms: ED Satisfaction Letter Extremity Problem HPI - General Chief complaint: ED Extremity Problem,Nontraumatic Stated complaint: Poss. Septic Ankle Time Seen by Provider: 07/05/17 17:33 Source: patient Mode of arrival: ambulatory Limitations: no limitations Nursing Notes Reviewed: Yes Vital Signs Reviewed: Yes - History of Present Illness HPI Narrative: 72-year-old female with history of chronic kidney disease, diabetes presents for evaluation of atraumatic right ankle pain. Patient states that her ankle has been intermittent with this pain and swelling for several months. Current episode started yesterday. Noted right ankle swelling on the lateral aspect. Notes worse with movement and difficulty with ambulation. Reports subjective fevers. Denies any decreased sensation or motor weakness. States she does have a history of the same and appeared to resolve spontaneously. Patient was sent in by her canal lock tender chief operator concerns of possible infection. Patient denies any chest pain or shortness of breath. No nausea or vomiting. No abdominal pain. Denies history of gout. Patient's been taking tramadol to help with the pain. Pain Scale: 8 - Related Data Home Medications Medication Instructions Recorded Confirmed Aspirin 81 mg PO DAILY 01/07/16 06/18/17 Bupropion HCl [Wellbutrin Xl] 300 mg PO DAILY 01/07/16 06/18/17 Citalopram Hydrobromide [Celexa] 40 mg PO DAILY 01/07/16 06/18/17 Cyclobenzaprine [Flexeril] 5 mg PO HS PRN 01/07/16 06/18/17 Ergocalciferol (VITAMIN D2) 50,000 unit PO QWEEK MDD monday01/07/16 06/18/17 [Vitamin D2 (50,000 UNIT)] Glimepiride [Amaryl] 2 mg PO DAILY 01/07/16 06/18/17 Levothyroxine [Synthroid] 150 mcg PO DAILY 01/07/16 06/18/17 Simvastatin [Zocor] 40 mg PO HS 01/07/16 06/18/17 Amitriptyline HCl 10 mg PO HS 06/18/17 06/18/17 Aripiprazole [Abilify] 2 mg PO DAILY 06/18/17 06/18/17 Calcitriol 0.5 mcg PO DAILY 06/18/17 06/18/17 Folic Acid 1 mg PO DAILY 06/18/17 06/18/17 Iron Aspgly,Ps/C/B12/FA/Ca/Suc 1 each PO DAILY 06/18/17 06/18/17 [Ferrex 150 Forte Plus Capsule] Nystatin Cream [Mycostatin Cream] 1 appl TP BID 06/18/17 06/18/17 Pregabalin [Lyrica] 25 mg PO BID 06/18/17 06/18/17 Tramadol HCl [Ultram] 50 mg PO BID PRN 06/18/17 06/18/17 Vitamin B Complex [B Complex] 1 tab PO DAILY 06/19/17 06/19/17 Previous Rx's Medication Instructions Recorded Ferrous Sulfate 325 mg PO QWEEK tablet 06/25/17 Insulin Glargine,Hum.rec.anlog 10 unit SQ HS #0 06/25/17 [Lantus Solostar] Losartan Potassium [Cozaar] 25 mg PO DAILY #0 06/25/17 Allergies Allergy/AdvReac Type Severity Reaction Status Date / Time No Known Allergies Allergy Verified 06/18/17 13:05 All systems ED: reviewed and negative except as stated. Constitutional: Reports: as per HPI, fever Eyes: Reports: as per HPI ENT ED: Reports: as per HPI Cardiovascular: Reports: as per HPI. Denies: chest pain Respiratory: Reports: as per HPI. Denies: dyspnea Gastrointestinal: Reports: as per HPI. Denies: abdominal pain, nausea, vomiting Genitourinary: Reports: as per HPI Musculoskeletal: Reports: as per HPI Integumentary: Reports: as per HPI Neurological: Reports: as per HPI Psychiatric: Reports: as per HPI Endocrine: Reports: as per HPI Past Medical History - Past Medical History Medical history: Reports: arthritis, diabetes, hypertension, peripheral artery disease, renal disease Surgical history: Reports: cholecystectomy, hysterectomy Psychiatric history: Reports: no psych history VE TEACHER history: Reports: no VE TEACHER history - Social History Smoking Status: Never smoker Smokeless Tobacco Status: No Alcohol use: Reports: none Drug use: Reports: none Physical Exam - General Limitations: no limitations General appearance: alert, in no apparent distress - Head Head exam: atraumatic, normocephalic, normal inspection - Eye Eye exam: Present: normal appearance, EOMI - ENT ENT exam: normal exam, mucous membranes moist - Neck Neck exam: Present: normal inspection - Chest Chest inspection: Present: normal inspection, symmetric chest wall rise - Respiratory Respiratory exam: Present: normal lung sounds bilaterally. Absent: respiratory distress - Cardiovascular Cardiovascular exam: Present: regular rate, normal rhythm - Abdominal Exam Abdominal exam: Present: soft, Non-Tender - Expanded Lower Extremity Exam Knee exam: Present: normal inspection. Absent: full ROM, tenderness, swelling, abrasion, erythema Lower leg exam: Present: normal inspection Ankle exam: Present: tenderness, swelling (Right lateral malleolus), other (No erythema.). Absent: abrasion, laceration, deformity, crepitus, erythema Foot/toe exam: Present: normal inspection Neurovascular/Tendon exam: Present: normal capillary refill. Absent: pulse deficit Course Course Narrative: Bedside ultrasound of R ankle. Super fascial cobblestoning over the right lateral malleoli. No discrete fluid pocket visualized. There is no overlying erythema. Patient tolerated the exam. - Consultations Consultation #1: Spoke with ortho who is aware of the patient. Time: 19:45 Vital Signs Temperature 97.8 F 07/05/17 16:36 Pulse Rate 72 07/05/17 16:36 Respiratory Rate 16 07/05/17 16:36 Blood Pressure 124/67 07/05/17 16:36 O2 Sat by Pulse Oximetry 97 07/05/17 16:36 Temperature 97.8 F 07/05/17 16:36 Pulse Rate 73 07/05/17 19:44 Respiratory Rate 16 07/05/17 19:44 Blood Pressure 128/54 07/05/17 19:44 O2 Sat by Pulse Oximetry 95 07/05/17 19:44 Oxygen Delivery Oxygen Delivery Room Air Extremity Problem, Nontraumati - Lab Data Result diagrams: 07/05/17 19:15 07/05/17 19:15 Lab Results 07/05/17 07/05/17 07/05/17 Range/Units 19:15 19:15 19:15 WBC 7.7 (4.3-11.1) K/mcL RBC 3.69 L (3.82-4.97) M/mcL Hgb 9.4 L (11.5-15.4) g/dL Hct 30.8 L (35.3-44.9) % MCV 83.5 (83.0-100.0) fL MCH 25.5 L (28.0-33.3) pg MCHC 30.5 L (31.6-35.5) g/dL RDW 15.6 H (11.5-14.5) % Plt Count 208 (140-400) K/mcL MPV 10.7 (9.4-12.4) fL Immature Gran % 0.4 (0-4) % Seg Neutrophils % 70.8 % Lymphocytes % 18.6 % Monocytes % 9.3 % Eosinophils % 0.8 % Basophils % 0.1 % Neutrophils # 5.5 (1.6-8.9) K/mcL Lymphocytes # 1.4 (0.6-4.6) K/mcL Monocytes # 0.7 (0.0-1.3) K/mcL Eosinophils # 0.1 (0.0-0.6) K/mcL Basophils # 0.0 (0.0-0.2) K/mcL ESR >= 130 H (0-15) mm/hr Sodium 135 L (136-145) mEq/L Potassium 4.6 (3.5-5.1) mEq/L Chloride 102 (98-107) mEq/L Carbon Dioxide 27 (23-29) mEq/L BUN 22 (8-23) mg/dL Creatinine 1.99 H (0.60-1.20) mg/dL Est GFR ( Amer) 30 L (> 60) Est GFR (Non-Af Amer) 25 L (> 60) BUN/Creatinine Ratio 11 (6-26) Glucose 43 L (70-105) mg/dL Calculated Osmolality 280 (280-300) Uric Acid 7.1 (2.3-7.6) mg/dL Calcium 9.3 (8.6-10.3) mg/dL S.B.A.R. - S.B.A.R. Situation: Demographics Background: Presenting Complaint, Relevant PMH, Meds, & Allergies Assessment: Vital Signs, Course and respsone to treatment, Patient/Family Expectation Recommendation: Barrier(s) to disposition, Recommendation based on pending studies, treatments, or consults Makayla Report Given to: Dr. Alan Benavides Repor Time: 19:57 Attestation Statement - Attestation Attestation: I examined this patient and my medical decision-making was reviewed with the Resident Physician. I agree with the documented findings, disposition and treatment plan as described except to the extent set forth below. Ankle is swollen - there is ankle edema on the other side, but not as much as on the affected side. Ankle has mild pinkish discoloration but is not red; is slightly warm but not hot. She can actively dorsiflex and plantar flex her ankle with minimal discomfort. She is diabetic. Ruling out septic arthritis is appropriate, but my suspicion is low. Will start Vancomycin, consult Ortho to evaluate for possible ankle arthrocentesis, and admit to hospitalist.
[2017-07-05] MEDS ORDERED: Vancomycin 1,500 MG in D5% in Water 250 ML IVPB ONE (19:01)
[2017-07-05] MEDS ORDERED: Vancomycin 1,000 MG in D5% in Water 250 ML IVPB ONE (19:05)
[2017-07-05] MEDS ORDERED: Ondansetron 4 MG/2 ML VIAL IVP ONE (19:09)
[2017-07-05] MEDS ORDERED: *HR* Morphine 2 MG/ML SYRINGE IVP ONE (19:09)
[2017-07-05 19:22] LABS: Basophils % 0.1 %; Eosinophils # 0.1 K/mcL (0.0-0.6); Eosinophils % 0.8 %; Hematocrit 30.8 % (35.3-44.9); Hemoglobin 9.4 g/dL (11.5-15.4); Immature Granulocytes % 0.4 % (0-4); Lymphocytes # 1.4 K/mcL (0.6-4.6); Lymphocytes % 18.6 %; Mean Corpuscular HGB Conc 30.5 g/dL (31.6-35.5); Mean Corpuscular Hemoglobin 25.5 pg (28.0-33.3); Mean Corpuscular Volume 83.5 fL (83.0-100.0); Mean Platelet Volume 10.7 fL (9.4-12.4); Monocytes # 0.7 K/mcL (0.0-1.3); Monocytes % 9.3 %; Neutrophils # 5.5 K/mcL (1.6-8.9); Platelet Count 208 K/mcL (140-400); Red Blood Count 3.69 M/mcL (3.82-4.97); Red Cell Distribution Width 15.6 % (11.5-14.5); Segmented Neutrophils % 70.8 %
[2017-07-05 19:35] LABS: Calcium 9.3 mg/dL (8.6-10.3); Potassium 4.6 mEq/L (3.5-5.1); Uric Acid 7.1 mg/dL (2.3-7.6)
--- NOTE | 2017-07-05 20:33 | Orthopedic Consult Note ---
Date of Encounter: 07/05/17 Time of Encounter: 20:31 Assessment and Plan (1) Lower extremity edema Current Visit: No Status: Acute The patient is able to range her ankle without significant pain. She does have soft tissue swelling over the lateral and medial aspects of the ankle. Using sterile technique I did attempt to pull fluid out of possible abscess over the lateral ankle. Approximately 2 mL of blood-tinged fluid was obtained, however there is no gross purulence. THis was sent for culture. She will be admitted to the hospitalist for pain control and antibiotics. Ice and elevate the ankle. No plans for surgery currently. History of Present Illness HPI: Ms. Trevizo is a 72 year old female with diabetes who began having atraumatic swelling on the lateral and medial aspect of her right ankle. She has had this before. It was painful. She has pain with weightbearing. Denies any fevers or chills. Minimal erythema. Past Med Surg Social Fam HX - Past Medical History Medical history: arthritis, diabetes, hypertension, peripheral artery disease, renal disease Psychiatric history: no psych history - Past Surgical History Surgical History: cholecystectomy, hysterectomy - Social History Smoking Status: Never smoker Smokeless Tobacco Status: No Alcohol use: none Drug use: none - Family History Mother Hx Family Endocrine Disorder: Yes (DIABETES MELLITUS.) Medications and Allergies Aspirin 81 mg PO DAILY 01/07/16 [History] Bupropion HCl [Wellbutrin Xl] 300 mg PO DAILY 01/07/16 [History] Citalopram Hydrobromide [Celexa] 40 mg PO DAILY 01/07/16 [History] Cyclobenzaprine [Flexeril] 5 mg PO HS PRN 01/07/16 [History] Ergocalciferol (VITAMIN D2) [Vitamin D2 (50,000 UNIT)] 50,000 unit PO QWEEK MDD monday01/07/16 [History] Glimepiride [Amaryl] 2 mg PO DAILY 01/07/16 [History] Levothyroxine [Synthroid] 150 mcg PO DAILY 01/07/16 [History] Simvastatin [Zocor] 40 mg PO HS 01/07/16 [History] Amitriptyline HCl 10 mg PO HS 06/18/17 [History] Aripiprazole [Abilify] 2 mg PO DAILY 06/18/17 [History] Calcitriol 0.5 mcg PO DAILY 06/18/17 [History] Folic Acid 1 mg PO DAILY 06/18/17 [History] Iron Aspgly,Ps/C/B12/FA/Ca/Suc [Ferrex 150 Forte Plus Capsule] 1 each PO DAILY 06/18/17 [History] Nystatin Cream [Mycostatin Cream] 1 appl TP BID 06/18/17 [History] Pregabalin [Lyrica] 25 mg PO BID 06/18/17 [History] Tramadol HCl [Ultram] 50 mg PO BID PRN 06/18/17 [History] Vitamin B Complex [B Complex] 1 tab PO DAILY 06/19/17 [History] Ferrous Sulfate 325 mg PO QWEEK tablet 06/25/17 [Rx] Insulin Glargine,Hum.rec.anlog [Lantus Solostar] 10 unit SQ HS #0 06/25/17 [Rx] Losartan Potassium [Cozaar] 25 mg PO DAILY #0 06/25/17 [Rx] 3 Allergy/AdvReac Type Severity Reaction Status Date / Time No Known Allergies Allergy Verified 06/18/17 13:05 All Systems Reviewed: A 10-system review of systems was performed and is negative for pertinent findings except as documented above in the HPI. Physical Exam - Constitutional Vitals: Temp Pulse Resp BP Pulse Ox 97.8 F 73 16 128/54 95 07/05/17 16:36 07/05/17 19:44 07/05/17 19:44 07/05/17 19:44 07/05/17 19:44 Exam: Consult Exam: Constitutional -Vitals reviewed -The patient is well developed and well nourished. -Mood is pleasant. -The patient is well groomed. Psychiatric -The patient is fully alert and oriented x 3. Respiratory: -Respiratory effort normal Abdomen: -Soft abdomen -Non tender -Non distended: Left upper extremity: -No deformities. The overlying skin is intact. No obvious signs of acute trauma. -No tenderness to palpation throughout. -No significant pain with passive motion of the shoulder, elbow, wrist, and fingers within the limits of the bed. -Able to make an "OK" sign, cross the index and long fingers, and extend the thumb. -Sensation grossly intact to light touch throughout the median, radial, and ulnar distributions. -Radial pulse is present; Fingers have good capillary refill. Right upper extremity: -No deformities. The overlying skin is intact. No obvious signs of acute trauma. -No tenderness to palpation throughout. -No significant pain with passive motion of the shoulder, elbow, wrist, and fingers within the limits of the bed. -Able to make an "OK" sign, cross the index and long fingers, and extend the thumb. -Sensation grossly intact to light touch throughout the median, radial, and ulnar distributions. -Radial pulse is present; Fingers have good capillary refill. Left lower extremity: -No deformities. The overlying skin is intact. No obvious signs of acute trauma. -No tenderness to palpation throughout. -No pain with passive motion of the hip, knee, ankle, and toes within the limits of the bed. -Able to dorsiflex and plantarflex the ankle and toes. -Sensation is grossly intact to light touch throughout the sural, saphenous, superficial peroneal, and deep peroneal distributions. -Toes have good capillary refill. Right lower extremity: -Boggy swelling over the medial and lateral aspects of the right ankle. Minimal erythema. No pain with short arc range of motion of the ankle. -No pain with passive motion of the hip, knee, ankle, and toes within the limits of the bed. -Able to dorsiflex and plantarflex the ankle and toes. -Sensation is grossly intact to light touch throughout the sural, saphenous, superficial peroneal, and deep peroneal distributions. -Toes have good capillary refill. Results - Labs Result Diagrams: 07/05/17 19:15 07/05/17 19:15 Labs: Abnormal lab results RBC 3.69 M/mcL (3.82-4.97) L 07/05/17 19:15 Hgb 9.4 g/dL (11.5-15.4) L 07/05/17 19:15 Hct 30.8 % (35.3-44.9) L 07/05/17 19:15 MCH 25.5 pg (28.0-33.3) L 07/05/17 19:15 MCHC 30.5 g/dL (31.6-35.5) L 07/05/17 19:15 RDW 15.6 % (11.5-14.5) H 07/05/17 19:15 ESR >= 130 mm/hr (0-15) H 07/05/17 19:15 Sodium 135 mEq/L (136-145) L 07/05/17 19:15 Creatinine 1.99 mg/dL (0.60-1.20) H 07/05/17 19:15 Est GFR ( Amer) 30 (> 60) L 07/05/17 19:15 Est GFR (Non-Af Amer) 25 (> 60) L 07/05/17 19:15 Glucose 43 mg/dL (70-105) L 07/05/17 19:15 H & H 07/05/17 Range/Units 19:15 Hgb 9.4 L (11.5-15.4) g/dL Hct 30.8 L (35.3-44.9) % All other labs normal. - Diagnostic results Ankle/Foot x-ray: report reviewed, image reviewed (Soft tissue swelling without bony destruction) Consult Discharge Plan - Plan Referrals: Cha Freeman MD [Primary Care Provider] -
[2017-07-05] MEDS ORDERED: Naloxone 0.4 MG/ML INJ IVP PRN (23:44)
[2017-07-05] MEDS ORDERED: PrednisoLONE Oral Soln 15 MG/5 ML UDC PO ONE (23:47)
--- NOTE | 2017-07-05 23:47 | Internal Med History&Physical ---
Date of Encounter: 07/05/17 Time of Encounter: 20:40 Assessment and Plan (1) Pseudogout of ankle Current visit: Yes Status: Acute Qualifiers: Laterality: right Qualified Code(s): M11.271 - Other chondrocalcinosis, right ankle and foot (2) Gout due to renal impairment Current visit: Yes Status: Acute Qualifiers: Gout site: ankle Chronicity: acute Laterality: right Qualified Code(s) : M10.371 - Gout due to renal impairment, right ankle and foot (3) Ankle swelling Current visit: Yes Status: Acute Qualifiers: Laterality: right Qualified Code(s): M25.471 - Effusion, right ankle (4) Chronic kidney disease Current visit: Yes Status: Acute Qualifiers: Chronic kidney disease stage: stage 3 (moderate) Qualified Code(s): N18.3 - Chronic kidney disease, stage 3 (moderate) Internal Medicine - H&P: HPI Chief complaint: Right ankle pain Admitted From: Emergency Dept Plans for Post Hospital Care: Home History of present illness: Ms. Trevizo is a 72 year old female with past medical history of chronic kidney disease, diabetes, history of recurrent ankle pain and swelling in the past. Patient stated over the last year she had recurrent episodes of right ankle pain and swelling, this has been happening almost every month that last 4 or 5 days. Patient denies any relieving factor. Patient stated that her pain gets worse with walking. Patient stated this week she had another episode of flareup to the extent was very hard for her to ambulate. Patient was seen by grain roaster today who referred the patient to come to emergency room for further evaluation. Patient had aspiration of fluid from the swelling. Orthopedic no purulent materials. Patient denies any fever or chills. Patient denies any nausea vomiting. When arrival patient had hypoglycemia her blood sugar was down to 43 Past Med Surg Social Fam HX - Past Medical History Medical history: arthritis, diabetes, hypertension, peripheral artery disease, renal disease Psychiatric history: no psych history - Past Surgical History Surgical History: cholecystectomy, hysterectomy - Social History Smoking Status: Never smoker Smokeless Tobacco Status: No Alcohol use: none Drug use: none - Family History Mother Adopted: No Twin of Family Member: Yes, Identical Living Status: Age at : 72 Cause of : DM, heart problems Hx Family Cardiac Disorders: Yes (sister, pacemaker, open heart sx) Hx Family Respiratory Disorders: No Hx Family Cancer: Yes (dad, skin cancer) Hx Family GI Disorders: No Hx Family Genitourinary Disorders: No Hx Family Endocrine Disorder: Yes (thyroid, dm) Hx Family Musculoskeletal Disorders: No Hx Family Neuromuscular Disorders: No Hx Family Neurologic Disorders: No Hx Family HEENT Disorders: No Hx Family Autoimmune Disorders: No Hx Family Reproductive Disorders: No Hx Family Psychosocial Disorders: No Hx Family Medical Disorders: No Internal Medicine - H&P: Meds Aspirin 81 mg PO DAILY 01/07/16 [History] Bupropion HCl [Wellbutrin Xl] 300 mg PO DAILY 01/07/16 [History] Citalopram Hydrobromide [Celexa] 40 mg PO DAILY 01/07/16 [History] Cyclobenzaprine [Flexeril] 5 mg PO HS PRN 01/07/16 [History] Ergocalciferol (VITAMIN D2) [Vitamin D2 (50,000 UNIT)] 50,000 unit PO QWEEK MDD monday01/07/16 [History] Glimepiride [Amaryl] 2 mg PO DAILY 01/07/16 [History] Levothyroxine [Synthroid] 150 mcg PO DAILY 01/07/16 [History] Simvastatin [Zocor] 40 mg PO HS 01/07/16 [History] Amitriptyline HCl 10 mg PO HS 06/18/17 [History] Aripiprazole [Abilify] 2 mg PO DAILY 06/18/17 [History] Calcitriol 0.5 mcg PO DAILY 06/18/17 [History] Folic Acid 1 mg PO DAILY 06/18/17 [History] Iron Aspgly,Ps/C/B12/FA/Ca/Suc [Ferrex 150 Forte Plus Capsule] 1 each PO DAILY 06/18/17 [History] Nystatin Cream [Mycostatin Cream] 1 appl TP BID 06/18/17 [History] Pregabalin [Lyrica] 25 mg PO BID 06/18/17 [History] Tramadol HCl [Ultram] 50 mg PO BID PRN 06/18/17 [History] Vitamin B Complex [B Complex] 1 tab PO DAILY 06/19/17 [History] Insulin Glargine,Hum.rec.anlog [Lantus Solostar] 10 unit SQ HS #0 06/25/17 [Rx] Losartan Potassium [Cozaar] 25 mg PO DAILY #0 06/25/17 [Rx] Furosemide [Lasix] 20 mg PO Q48H 07/05/17 [History] 3 Allergy/AdvReac Type Severity Reaction Status Date / Time No Known Allergies Allergy Verified 06/18/17 13:05 All Systems PM: A 10-system review of systems was performed and is negative for pertinent findings except as documented above in the HPI. - Constitutional Vitals: Temp Pulse Resp BP Pulse Ox 98.1 F 67 14 146/75 94 07/05/17 23:17 07/05/17 23:17 07/05/17 23:17 07/05/17 23:17 07/05/17 23:17 - Head Head exam: Present: atraumatic, normocephalic - Neck Neck exam general surgery: Present: supple, trachea midline. Absent: lymphadenopathy - Respiratory Respiratory exam: Present: decreased breath sounds, CTAB. Absent: accessory muscle use, rales, rhonchi, wheezes - Extremities Exam Extremities exam: Present: joint swelling, warm, radial pulses palpable and symmetrical. Absent: calf tenderness, cyanotic, pedal edema Additional comments: Right ankle swelling and tenderness, right great toe tenderness Internal Med - H&P Results - Labs CBC & Chem 7: 07/06/17 04:43 07/06/17 04:43
[2017-07-05] MEDS ORDERED: traMADol 50 MG TABLET PO PRN (23:48)
[2017-07-06] MEDS ORDERED: D5% in 0.45% NACL 1,000 ML IVC ONE (00:11)
[2017-07-06] MEDS: Piperacillin/Tazobactam 3.375 GM/200 ML BAG IVPB SCH ×2 (00:57→08:21)
[2017-07-06 05:28] LABS: Basophils % 0.1 %; Eosinophils % 0.1 %; Hematocrit 27.1 % (35.3-44.9); Hemoglobin 8.4 g/dL (11.5-15.4); Immature Granulocytes % 1.5 % (0-4); Immature Platelets 6.2 % (1.1-6.1); Lymphocytes # 0.6 K/mcL (0.6-4.6); Lymphocytes % 8.2 %; Mean Corpuscular Hemoglobin 25.8 pg (28.0-33.3); Mean Corpuscular Volume 83.1 fL (83.0-100.0); Mean Platelet Volume 11.4 fL (9.4-12.4); Monocytes # 0.3 K/mcL (0.0-1.3); Monocytes % 4.7 %; Neutrophils # 5.9 K/mcL (1.6-8.9); Platelet Count 175 K/mcL (140-400); Red Blood Count 3.26 M/mcL (3.82-4.97); Segmented Neutrophils % 85.4 %
[2017-07-06] MEDS ORDERED: Doxycycline 100 MG in 0.9 % Sodium Chloride Mini Bag 100 ML IVPB SCH (06:00)
[2017-07-06 06:04] LABS: Calcium 8.9 mg/dL (8.6-10.3); Potassium 5.3 mEq/L (3.5-5.1)
[2017-07-06] MEDS: Folic Acid 1 MG TABLET PO SCH (08:01)
[2017-07-06] MEDS: BuPROPion XL (24 HR) 150 MG TABLET PO SCH (08:01)
[2017-07-06] MEDS: Aspirin 81 MG TAB.CHEW PO SCH (08:01)
[2017-07-06] MEDS: Iron Polysaccharide Complex 150 MG CAPSULE PO SCH (08:01)
[2017-07-06] MEDS: Vitamin B Complex/Vit C/Vit E 1 EACH TABLET PO SCH (08:01)
[2017-07-06] MEDS: Pregabalin 25 MG CAPSULE PO SCH ×2 (08:01→22:02)
[2017-07-06] MEDS: ARIPiprazole 5 MG TABLET PO SCH (08:02)
[2017-07-06] MEDS: Insulin LISPRO 300 UNITS/3 ML VIAL SQ SCH ×3 (08:21→18:21)
[2017-07-06] MEDS ORDERED: 0.9 % Sodium Chloride 1,000 ML IVC SCH (12:00)
[2017-07-06] MEDS: Nystatin Cream 15 GM TUBE TP SCH ×2 (12:17→22:02)
--- NOTE | 2017-07-06 13:15 | Internal Med Progress Note ---
<Emily Arnett - Last Filed: 07/06/17 15:10> Date of Encounter: 07/06/17 Time of Encounter: 13:14 - Assessment and plan (1) Ankle swelling Current Visit: Yes Status: Acute Assessment and plan: Gout versus pseudogout versus septic arthritis white count normal, ESR >/= 130, uric acid 7.1 Wound culture pending On doxycycline and Zosyn colchicine to treat possible gout/pseudogout; plan to discharge on allopurinol Qualifiers: Laterality: right Qualified Code(s): M25.471 - Effusion, right ankle (2) [id number] kidney injury Current Visit: Yes Status: Acute Assessment and plan: Avoid nephrotoxic agents gentle hydration Monitor kidney function with daily labs Qualifiers: Acute renal failure type: unspecified Chronic kidney disease stage: stage 4 (severe) Qualified Code(s): N17.9 - Acute kidney failure, unspecified; N18.4 - Chronic kidney disease, stage 4 (severe); N18.4 - Chronic kidney disease , stage 4 (severe); N18.4 - Chronic kidney disease, stage 4 (severe); N18.4 - Chronic kidney disease, stage 4 (severe) (3) Diabetes Current Visit: No Status: Acute Assessment and plan: Recent A1c 5.8 Discontinue sulfonylurea on discharge Accu-Cheks and sliding scale; Levemir 10 units QHS Qualifiers: Diabetes mellitus type: type 2 Diabetes mellitus complication status: without complication Diabetes mellitus technician terminal and repeater insulin use: with technician terminal and repeater use Qualified Code(s): E11.9 - Type 2 diabetes mellitus without complications ; Z79.4 - custodial (current) use of insulin; Z79.4 - terminal system operator (current) use of insulin; Z79.4 - terminal system operator (current) use of insulin; Z79.4 - terminal system operator ( current) use of insulin - Subjective Interval history: Patient sitting comfortably in chair. She states that her ankle is improved from yesterday. She states that the swelling has decreased. - Constitutional Vitals: Temp Pulse Resp BP Pulse Ox 98.1 F 70 16 109/66 96 07/06/17 11:17 07/06/17 11:17 07/06/17 11:17 07/06/17 11:17 07/06/17 11:17 General appearance: Present: A&O X 3, no acute distress, answers questions appropriately - Head Head exam: Present: atraumatic, normocephalic - Eye Eye exam: Present: PERRL, conjuntiva pink, sclera anicteric Pupils: Present: PERRL - Neck Neck exam general surgery: Present: supple, trachea midline. Absent: lymphadenopathy - Respiratory Respiratory exam: Present: CTAB. Absent: accessory muscle use, rales, rhonchi, wheezes - Cardiovascular Cardiovascular exam: Present: RRR, +S1, +S2. Absent: diastolic murmur, gallop, rubs, systolic murmur - GI/Abdominal GI/Abdominal exam: Present: normal bowel sounds, soft, no peritoneal signs. Absent: distended, tenderness - Extremities Exam Extremities exam: Present: pedal edema (trace to 1+), tenderness (mild, right ankle), warm. Absent: normal inspection (swelling of right lateral and medial ankle (lateral > medial), also minimal swelling of foot and toes; no erythema - the ankle is not hot to touch) - Neurological Exam Neurological exam: Present: CN II-XII intact, oriented X3, no focal deficits. Absent: pronater drift, facial droop, speech deficit - Skin Skin exam: Present: dry, intact Internal Medicine: Result - Labs CBC & Chem 7: 07/06/17 04:43 07/06/17 04:43 Labs: Short CBC 07/06/17 Range/Units 04:43 WBC 6.9 (4.3-11.1) K/mcL Hgb 8.4 L (11.5-15.4) g/dL Hct 27.1 L (35.3-44.9) % Plt Count 175 (140-400) K/mcL Neutrophils # 5.9 (1.6-8.9) K/mcL BMP 07/06/17 04:43 Sodium 134 L Potassium 5.3 H Chloride 100 Carbon Dioxide 24 BUN 26 H Creatinine 2.15 H Glucose 263 H Calcium 8.9 Consult Discharge Plan - Plan Referrals: Cha Freeman MD [Primary Care Provider] - <Rodriguez Diaz - Last Filed: 07/06/17 19:24> Date of Encounter: 07/06/17 - Constitutional Vitals: Temp Pulse Resp BP Pulse Ox 98.1 F 68 15 112/64 97 07/06/17 15:52 07/06/17 15:52 07/06/17 15:52 07/06/17 15:52 07/06/17 15:52 Internal Medicine: Result - Labs CBC & Chem 7: 07/06/17 04:43 07/06/17 04:43 Labs: Short CBC 07/06/17 07/06/17 07/06/17 Range/Units 00:06 01:04 02:11 WBC (4.3-11.1) K/mcL RBC (3.82-4.97) M/mcL Hgb (11.5-15.4) g/dL Hct (35.3-44.9) % MCV (83.0-100.0) fL MCH (28.0-33.3) pg MCHC (31.6-35.5) g/dL RDW (11.5-14.5) % Plt Count (140-400) K/mcL MPV (9.4-12.4) fL Immature Gran % (0-4) % Seg Neutrophils % % Lymphocytes % % Monocytes % % Eosinophils % % Basophils % % Neutrophils # (1.6-8.9) K/mcL Lymphocytes # (0.6-4.6) K/mcL Monocytes # (0.0-1.3) K/mcL Eosinophils # (0.0-0.6) K/mcL Basophils # (0.0-0.2) K/mcL Immature Plt Fraction (1.1-6.1) % Sodium (136-145) mEq/L Potassium (3.5-5.1) mEq/L Chloride (98-107) mEq/L Carbon Dioxide (23-29) mEq/L BUN (8-23) mg/dL Creatinine (0.60-1.20) mg/dL Est GFR ( Amer) (> 60) Est GFR (Non-Af Amer) (> 60) BUN/Creatinine Ratio (6-26) Glucose (70-105) mg/dL POC Glucose 42 L* 72 144 H (58-89) Calculated Osmolality (280-300) Calcium (8.6-10.3) mg/dL 07/06/17 07/06/17 07/06/17 Range/Units 03:09 04:43 04:43 WBC 6.9 (4.3-11.1) K/mcL RBC 3.26 L (3.82-4.97) M/mcL Hgb 8.4 L (11.5-15.4) g/dL Hct 27.1 L (35.3-44.9) % MCV 83.1 (83.0-100.0) fL MCH 25.8 L (28.0-33.3) pg MCHC 31.0 L (31.6-35.5) g/dL RDW 16.0 H (11.5-14.5) % Plt Count 175 (140-400) K/mcL MPV 11.4 (9.4-12.4) fL Immature Gran % 1.5 (0-4) % Seg Neutrophils % 85.4 % Lymphocytes % 8.2 % Monocytes % 4.7 % Eosinophils % 0.1 % Basophils % 0.1 % Neutrophils # 5.9 (1.6-8.9) K/mcL Lymphocytes # 0.6 (0.6-4.6) K/mcL Monocytes # 0.3 (0.0-1.3) K/mcL Eosinophils # 0.0 (0.0-0.6) K/mcL Basophils # 0.0 (0.0-0.2) K/mcL Immature Plt Fraction 6.2 H (1.1-6.1) % Sodium 134 L (136-145) mEq/L Potassium 5.3 H (3.5-5.1) mEq/L Chloride 100 (98-107) mEq/L Carbon Dioxide 24 (23-29) mEq/L BUN 26 H (8-23) mg/dL Creatinine 2.15 H (0.60-1.20) mg/dL Est GFR ( Amer) 27 L (> 60) Est GFR (Non-Af Amer) 23 L (> 60) BUN/Creatinine Ratio 12 (6-26) Glucose 263 H (70-105) mg/dL POC Glucose 208 H (58-89) Calculated Osmolality 292 (280-300) Calcium 8.9 (8.6-10.3) mg/dL 07/06/17 07/06/17 07/06/17 Range/Units 07:14 11:22 15:55 WBC (4.3-11.1) K/mcL RBC (3.82-4.97) M/mcL Hgb (11.5-15.4) g/dL Hct (35.3-44.9) % MCV (83.0-100.0) fL MCH (28.0-33.3) pg MCHC (31.6-35.5) g/dL RDW (11.5-14.5) % Plt Count (140-400) K/mcL MPV (9.4-12.4) fL Immature Gran % (0-4) % Seg Neutrophils % % Lymphocytes % % Monocytes % % Eosinophils % % Basophils % % Neutrophils # (1.6-8.9) K/mcL Lymphocytes # (0.6-4.6) K/mcL Monocytes # (0.0-1.3) K/mcL Eosinophils # (0.0-0.6) K/mcL Basophils # (0.0-0.2) K/mcL Immature Plt Fraction (1.1-6.1) % Sodium (136-145) mEq/L Potassium (3.5-5.1) mEq/L Chloride (98-107) mEq/L Carbon Dioxide (23-29) mEq/L BUN (8-23) mg/dL Creatinine (0.60-1.20) mg/dL Est GFR ( Amer) (> 60) Est GFR (Non-Af Amer) (> 60) BUN/Creatinine Ratio (6-26) Glucose (70-105) mg/dL POC Glucose 320 H 395 H 194 H (58-89) Calculated Osmolality (280-300) Calcium (8.6-10.3) mg/dL [facility] 07/06/17 04:43 Sodium 134 L Potassium 5.3 H Chloride 100 Carbon Dioxide 24 BUN 26 H Creatinine 2.15 H Glucose 263 H Calcium 8.9 - Attending Attestation I conducted a face to face diagnostic evaluation of this patient and my medical decision-making was reviewed with the Resident Physician, Dr Abdi Thakkar. I agree with the documented findings, disposition and treatment plan as described except to the extent set forth below: Patient has right ankle joint swelling and palpable effusion and right great toe erythema and tenderness to palpation and passive range of motion. This is consistent with gout of the right ankle ORIF right great toe. She has acute kidney injury and CK D with worsening creatinine today. We will avoid nephrotoxins. Start colchicine. Monitor kidney function. Start gentle IV fluid hydration. Due to worsening kidney function and inability to ambulate she requires inpatient admission for at least 2 midnights. For past medical history, family history, social history and review of systems please refer to the H&P dictated yesterday at this facility. There are no changes or updates. Rodriguez Diaz MD
[2017-07-06] MEDS ORDERED: Furosemide 20 MG TABLET PO SCH (15:00)
[2017-07-06] MEDS ORDERED: Colchicine 0.6 MG TABLET PO ONE (15:30)
[2017-07-06] MEDS ORDERED: Piperacillin/Tazobactam 3.375 GM/200 ML BAG IVPB SCH (20:00)
[2017-07-06] MEDS ORDERED: Insulin DETEMIR 100 UNIT/ML X5UNITS SQ SCH (21:00)
[2017-07-06] MEDS: Doxycycline 100 MG in 0.9 % Sodium Chloride Mini Bag 100 ML IVPB SCH (22:00)
[2017-07-07] MEDS ORDERED: *HR* Heparin 5,000 UNIT/ML VIAL SQ SCH (06:00)
[2017-07-07] MEDS: Doxycycline 100 MG in 0.9 % Sodium Chloride Mini Bag 100 ML IVPB SCH (06:51)
[2017-07-07 07:15] LABS: Calcium 8.7 mg/dL (8.6-10.3); Potassium 4.2 mEq/L (3.5-5.1)
[2017-07-07] MEDS ORDERED: Colchicine 0.6 MG TABLET PO ONE ×2 (08:31→09:30)
[2017-07-07 08:47] VITALS: BP 94/53
[2017-07-07] MEDS ORDERED: Colchicine 0.6 MG TABLET PO SCH (09:00)
[2017-07-07] MEDS: ARIPiprazole 5 MG TABLET PO SCH (10:08)
[2017-07-07] MEDS: BuPROPion XL (24 HR) 150 MG TABLET PO SCH (10:09)
[2017-07-07] MEDS: Pregabalin 25 MG CAPSULE PO SCH (10:09)
[2017-07-07] MEDS: Vitamin B Complex/Vit C/Vit E 1 EACH TABLET PO SCH (10:09)
[2017-07-07] MEDS: Iron Polysaccharide Complex 150 MG CAPSULE PO SCH (10:09)
[2017-07-07] MEDS: Folic Acid 1 MG TABLET PO SCH (10:10)
[2017-07-07] MEDS: Insulin LISPRO 300 UNITS/3 ML VIAL SQ SCH (10:10)
[2017-07-07] MEDS: Aspirin 81 MG TAB.CHEW PO SCH (10:13)
[2017-07-07] MEDS: Nystatin Cream 15 GM TUBE TP SCH (10:16)
--- NOTE | 2017-07-07 10:16 | Discharge Summary ---
<PorscheelbavivienneneerajEmilykanwal Justice - Last Filed: 07/07/17 10:37> Date of Encounter: 07/07/17 Time of Encounter: 10:13 - Discharge Diagnosis (1) Ankle swelling Priority: Primary Status: Acute Qualifiers: Laterality: right Qualified Code(s): M25.471 - Effusion, right ankle (2) [id number] kidney injury Priority: Secondary Status: Acute Qualifiers: Acute renal failure type: unspecified Chronic kidney disease stage: stage 4 (severe) Qualified Code(s): N17.9 - Acute kidney failure, unspecified; N18.4 - Chronic kidney disease, stage 4 (severe); N18.4 - Chronic kidney disease , stage 4 (severe); N18.4 - Chronic kidney disease, stage 4 (severe); N18.4 - Chronic kidney disease, stage 4 (severe) (3) Diabetes Priority: Secondary Status: Acute Qualifiers: Diabetes mellitus type: type 2 Diabetes mellitus complication status: without complication Diabetes mellitus intermediate project manager insulin use: with penitentiary use Qualified Code(s): E11.9 - Type 2 diabetes mellitus without complications ; Z79.4 - ferry terminal supervisor (current) use of insulin; Z79.4 - ferry terminal supervisor (current) use of insulin; Z79.4 - intermediate (current) use of insulin; Z79.4 - intermediate ( current) use of insulin - Discharge Medications Prescriptions: Allopurinol [Zyloprim 100 MG] 200 mg PO DAILY #30 tablet Colchicine [Colcrys] 0.6 mg PO Q1H PRN #3 tablet PRN Reason: ankle swelling and pain Home Medications: Aspirin 81 mg PO DAILY 01/07/16 [History] Bupropion HCl [Wellbutrin Xl] 300 mg PO DAILY 01/07/16 [History] Citalopram Hydrobromide [Celexa] 40 mg PO DAILY 01/07/16 [History] Cyclobenzaprine [Flexeril] 5 mg PO HS PRN 01/07/16 [History] Ergocalciferol (VITAMIN D2) [Vitamin D2 (50,000 UNIT)] 50,000 unit PO QWEEK MDD monday01/07/16 [History] Levothyroxine [Synthroid] 150 mcg PO DAILY 01/07/16 [History] Simvastatin [Zocor] 40 mg PO HS 01/07/16 [History] Amitriptyline HCl 10 mg PO HS 06/18/17 [History] Aripiprazole [Abilify] 2 mg PO DAILY 06/18/17 [History] Calcitriol 0.5 mcg PO DAILY 06/18/17 [History] Folic Acid 1 mg PO DAILY 06/18/17 [History] Iron Aspgly,Ps/C/B12/FA/Ca/Suc [Ferrex 150 Forte Plus Capsule] 1 each PO DAILY 06/18/17 [History] Nystatin Cream [Mycostatin Cream] 1 appl TP BID 06/18/17 [History] Pregabalin [Lyrica] 25 mg PO BID 06/18/17 [History] Tramadol HCl [Ultram] 50 mg PO BID PRN 06/18/17 [History] Vitamin B Complex [B Complex] 1 tab PO DAILY 06/19/17 [History] Insulin Glargine,Hum.rec.anlog [Lantus Solostar] 10 unit SQ HS #0 06/25/17 [Rx] Losartan Potassium [Cozaar] 25 mg PO DAILY #0 06/25/17 [Rx] Furosemide [Lasix] 20 mg PO Q48H 07/05/17 [History] Allopurinol [Zyloprim 100 MG] 200 mg PO DAILY #30 tablet 07/07/17 [Rx] Colchicine [Colcrys] 0.6 mg PO Q1H PRN #3 tablet 07/07/17 [Rx] Allergies/Adverse Reactions: 3 Allergy/AdvReac Type Severity Reaction Status Date / Time No Known Allergies Allergy Verified 06/18/17 13:05 - Notes to Outpatient Provider Patient was also discharged with a bedside commode for use during acute gout flares the recommendations by therapy. Date of admission: 07/06/17 19:25 Primary care physician: Cha Freeman MD Discharging clinician: Emily Arnett Anticipated date of discharge: 07/07/17 - Patient Status Disposition: Home, Self-Care Condition: Fair Functional capacity at discharge: independent ambulation Overall status at discharge: patient is progressing back to baseline - Ambulatory Orders Ambulatory Orders: Uric Acid [CHEM] Time Frame: 3 Weeks, Facility: [facility], Location: Lab - Discharge Instructions Follow Up With: Cha Freeman MD [Primary Care Provider] - 07/11/17 9:00 am - Diet and Activity Diet: other (renal diet) Interval History: Patient was seen in her room this morning, she states that the orthopedic doctor told her should go home today. She states that her foot is feeling somewhat better. The pain has decreased a little bit. Hospital course: Ms. Trevizo is a 72 year old female admitted for acute atraumatic right ankle swelling. The lateral right ankle was aspirated in the emergency room by orthopedics. The preliminary wound culture result is no growth. She was treated inpatient with doxycycline and Zosyn to cover for septic arthritis. She was also given colchicine to treat for gout/pseudogout. She has had 12 attacks of atraumatic ankle and foot swelling and pain in the past year. She is being discharged home on allopurinol therapy and being given a colchicine gout flare dose. - Time Spent with Patient Total time spent providing and/or coordinating discharge services: - Constitutional Vitals: Temp Pulse Resp BP Pulse Ox 98.0 F 63 16 94/53 95 07/07/17 08:46 07/07/17 08:46 07/07/17 08:46 07/07/17 08:46 07/07/17 08:46 General appearance: Present: A&O X 3, no acute distress, answers questions appropriately - Head Head exam: Present: atraumatic, normocephalic - Eye Eye exam: Present: PERRL, conjuntiva pink, sclera anicteric Pupils: Present: PERRL - Neck Neck exam general surgery: Present: supple, trachea midline. Absent: lymphadenopathy - Respiratory Respiratory exam: Present: CTAB. Absent: accessory muscle use, rales, rhonchi, wheezes - Cardiovascular Cardiovascular exam: Present: RRR, +S1, +S2. Absent: diastolic murmur, gallop, rubs, systolic murmur - GI/Abdominal GI/Abdominal exam: Present: normal bowel sounds, soft, no peritoneal signs. Absent: distended, tenderness - Extremities Exam Extremities exam: Present: full ROM Additional comments: Right lower extremity with 1+ pedal edema, no erythema, no warmth, ecchymosis of the lateral malleolus - Neurological Exam Neurological exam: Present: CN II-XII intact, oriented X3, no focal deficits. Absent: pronater drift, facial droop, speech deficit - Skin Skin exam: Present: dry, intact <Ducu,Rodriguez - Last Filed: 07/07/17 18:19> Date of Encounter: 07/07/17 Date of admission: 07/06/17 19:25 Primary care physician: Cha Freeman MD Hospital course: Ms. Trevizo is a 72 year old female - Time Spent with Patient Total time spent providing and/or coordinating discharge services: - Constitutional Vitals: Temp Pulse Resp BP Pulse Ox 98.0 F 63 16 94/53 95 07/07/17 08:46 07/07/17 08:46 07/07/17 08:46 07/07/17 08:46 07/07/17 08:46 - Attending Attestation I conducted a face to face diagnostic evaluation of this patient and my medical decision-making was reviewed with the Resident Physician. I agree with the documented findings, disposition and treatment plan as described except to the extent set forth below: Right ankle is still swollen, less tender, there is no surrounding erythema. Right great toe is significantly improved in terms of joint swelling and erythema, nontender to palpation. She responded well to gout therapy and therefore we will continue this. She was evaluated by PT who recommended no need for home services. She is medically stable for discharge home. We will add allopurinol. I advised close follow-up with nephrology. Rodriguez Diaz MD
== END 2017-07-07 12:25 | disposition home or self-care (01) | DRG 554 ==
LOC: 3NENU 16:06 → EMEROO 16:06 → SUATTDRO 21:01 → 3NENU 21:14
PROVIDERS: ADMIT Internal Medicine; ATTEND Internal Medicine

== ENCOUNTER 2018-08-20 11:59 | Observation (INO) ==
--- NOTE | 2018-08-20 13:36 | Emergency Department Note ---
Disposition Clinical Impression: Bilateral lower extremity pain Disposition: Still a Patient Referrals: Cha Freeman MD [Primary Care Provider] - General Adult HPI - General Chief complaint: ED General Medical Stated complaint: Bi-Lateral leg pain Time Seen by Provider: 08/20/18 13:03 Source: patient Limitations: no limitations Nursing Notes Reviewed: Yes Vital Signs Reviewed: Yes - History of Present Illness HPI Narrative: ED ATTESTATION NOTE: I examined this patient and my medical decision-making was reviewed with the Resident Physician/FOOTWEAR PRODUCTION MACHINE OPERATOR/PA/Student. I have personally performed a face to face evaluation on this patient & I agree with the documented findings, disposition and treatment plan as described except to the extent set forth below. 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 Physical examination shows her leg swelling sexually gone down. Chest flank and upper extremity pain as well as signs of neurovascular compromise no dysuria no no CVAT abdomen surgically benign afebrile stable vital signs patient by lower extremity Dopplers and screening labs. Disposition pending. Patient stable. Pain Scale: 10 - Related Data Home Medications Medication Instructions Recorded Confirmed Aspirin 81 mg PO DAILY 01/07/16 07/06/18 Bupropion HCl [Wellbutrin Xl] 300 mg PO DAILY 01/07/16 07/06/18 Citalopram Hydrobromide [Celexa] 40 mg PO DAILY 01/07/16 07/06/18 Cyclobenzaprine [Flexeril] 5 mg PO HS PRN 01/07/16 07/06/18 Ergocalciferol (VITAMIN D2) 50,000 unit PO QWEEK MDD monday01/07/16 07/06/18 [Vitamin D2 (50,000 UNIT)] Levothyroxine [Synthroid] 150 mcg PO DAILY 01/07/16 07/06/18 Simvastatin [Zocor] 40 mg PO HS 01/07/16 07/06/18 Amitriptyline HCl 10 mg PO HS 06/18/17 07/06/18 Aripiprazole [Abilify] 2 mg PO DAILY 06/18/17 07/06/18 Calcitriol 0.5 mcg PO DAILY 06/18/17 07/06/18 Folic Acid 1 mg PO DAILY 06/18/17 07/06/18 Iron Aspgly,Ps/C/B12/FA/Ca/Suc 1 each PO DAILY 06/18/17 07/06/18 [Ferrex 150 Forte Plus Capsule] Nystatin Cream [Mycostatin Cream] 1 appl TP BID 06/18/17 07/06/18 Vitamin B Complex [B Complex] 1 tab PO DAILY 06/19/17 07/06/18 Furosemide [Lasix] 20 mg PO DAILY 07/05/17 07/06/18 GlipiZIDE [Glucotrol Xl] 2.5 mg PO DAILY 07/06/18 07/06/18 Previous Rx's Medication Instructions Recorded Losartan Potassium [Cozaar] 25 mg PO DAILY #0 06/25/17 Allopurinol [Zyloprim 100 MG] 200 mg PO DAILY #30 tablet 07/07/17 Allergies Allergy/AdvReac Type Severity Reaction Status Date / Time No Known Allergies Allergy Verified 06/18/17 13:05 Past Medical History - Past Medical History Medical history: Reports: arthritis, diabetes, hypertension, peripheral artery disease, renal disease Surgical history: Reports: cholecystectomy, hysterectomy Psychiatric history: Reports: no psych history SMELTER LINER history: Reports: no SMELTER LINER history - Social History Smoking Status: Never smoker Smokeless Tobacco Status: No Alcohol use: Reports: none Drug use: Reports: none Physical Exam - General Limitations: no limitations General appearance: alert, in no apparent distress Course Vital Signs Temperature 98.0 F 08/20/18 12:09 Pulse Rate 60 08/20/18 12:09 Respiratory Rate 18 08/20/18 12:09 Blood Pressure 114/57 08/20/18 12:09 O2 Sat by Pulse Oximetry 97 08/20/18 12:09 Temperature 98.0 F 08/20/18 12:09 Pulse Rate 60 08/20/18 12:09 Respiratory Rate 18 08/20/18 12:09 Blood Pressure 114/57 08/20/18 12:09 O2 Sat by Pulse Oximetry 97 08/20/18 12:09 Oxygen Delivery Oxygen Delivery Room Air
[2018-08-20 13:57] LABS: Bilirubin,Urine Negative (Negative); Blood,Urine Negative (Negative); Clarity,Urine Clear (Clear); Color,Urine Yellow (Yellow); Glucose,Urine (UA) Normal (Normal); Ketones,Urine Negative (Negative); Leukocyte Esterase,Urine Small (Negative); Nitrite,Urine Negative (Negative); Protein,Urine Trace mg/dL (Neg-Trace); Specific Gravity,Urine 1.007 (1.010-1.025); Urobilinogen,Urine Normal (Normal)
[2018-08-20 14:00] LABS: Bacteria,Urine None Seen per hpf (None-Few); Hyaline Casts,Urine None Seen per lpf (None-Few); RBC,Urine 0-3 per hpf (0-3); Squamous Epithelial Cell,Urine Many per lpf (None-Few)
--- NOTE | 2018-08-20 14:02 | Emergency Department Note ---
Disposition Clinical Impression: Bilateral lower extremity pain, Hypernatremia, Hypocalcemia Leg pain Qualifiers: Laterality: bilateral Qualified Code(s): M79.604 - Pain in right leg Arm pain Qualifiers: Laterality: bilateral Qualified Code(s): M79.601 - Pain in right arm Disposition: Admitted As Inpatient Condition: Fair Referrals: Cha Freeman MD [Primary Care Provider] - Forms: ED Satisfaction Letter, Work/School Release General Adult HPI - General Chief complaint: ED General Medical Stated complaint: Bi-Lateral leg pain Time Seen by Provider: 08/20/18 13:03 Source: patient Mode of arrival: private vehicle Limitations: no limitations Nursing Notes Reviewed: Yes Vital Signs Reviewed: Yes - History of Present Illness HPI Narrative: Patient is a 73-year-old female with past medical history including type 2 diabetes mellitus, chronic kidney disease stage IV, hypertension, recent diagnosis of bilateral lower extremity DVT in the superficial femoral vein on Eliquis since June 2018, presenting with chief complaint of bilateral upper and lower show many pain for the past week. She complains of pain in both her legs as well as her upper arms that is fluctuating the past week. She states she has a difficulty time raising her arms out secondary to the pain. She states the swelling in her legs is improved since June. However she states the pain is the same that she experienced when she was diagnosed with a DVT. She also complains of right flank pain for the past couple of days and denies dysuria, hematuria, abdominal pain, nausea, vomiting. She denies fevers. She states she also had the flank pain when she was diagnosed with a DVT. She states her compliance with Eliquis. She denies any trauma. She states she does ambulate daily. She denies strength weakness, rashes. Pain Scale: 10 - Related Data Home Medications Medication Instructions Recorded Confirmed Aspirin 81 mg PO DAILY 01/07/16 07/06/18 Bupropion HCl [Wellbutrin Xl] 300 mg PO DAILY 01/07/16 07/06/18 Citalopram Hydrobromide [Celexa] 40 mg PO DAILY 01/07/16 07/06/18 Cyclobenzaprine [Flexeril] 5 mg PO HS PRN 01/07/16 07/06/18 Ergocalciferol (VITAMIN D2) 50,000 unit PO QWEEK MDD monday01/07/1618 [Vitamin D2 (50,000 UNIT)] Levothyroxine [Synthroid] 150 mcg PO DAILY 01/07/16 07/06/18 Simvastatin [Zocor] 40 mg PO HS 01/07/16 07/06/18 Amitriptyline HCl 10 mg PO HS 06/18/17 07/06/18 Aripiprazole [Abilify] 2 mg PO DAILY 06/18/17 07/06/18 Calcitriol 0.5 mcg PO DAILY 06/18/17 07/06/18 Folic Acid 1 mg PO DAILY 06/18/17 07/06/18 Iron Aspgly,Ps/C/B12/FA/Ca/Suc 1 each PO DAILY 06/18/17 07/06/18 [Ferrex 150 Forte Plus Capsule] Nystatin Cream [Mycostatin Cream] 1 appl TP BID 06/18/17 07/06/18 Vitamin B Complex [B Complex] 1 tab PO DAILY 06/19/17 07/06/18 Furosemide [Lasix] 20 mg PO DAILY 07/05/17 07/06/18 GlipiZIDE [Glucotrol Xl] 2.5 mg PO DAILY 07/06/18 07/06/18 Previous Rx's Medication Instructions Recorded Losartan Potassium [Cozaar] 25 mg PO DAILY #0 06/25/17 Allopurinol [Zyloprim 100 MG] 200 mg PO DAILY #30 tablet 07/07/17 Allergies Allergy/AdvReac Type Severity Reaction Status Date / Time No Known Allergies Allergy Verified 06/18/17 13:05 All systems ED: reviewed and negative except as stated. Review of Systems: As Per HPI Constitutional: Denies: fever, chills Cardiovascular: Denies: chest pain, palpitations Respiratory: Denies: cough, dyspnea Gastrointestinal: Denies: abdominal pain, nausea, vomiting Genitourinary: Denies: dysuria, hematuria Musculoskeletal: Reports: back pain, other (Bilateral leg and arm pain) Neurological: Denies: headache, weakness Past Medical History - Past Medical History Attestation: Yes The following information was validated with the patient. Source: patient Medical history: Reports: arthritis, diabetes, hypertension, peripheral artery disease, renal disease Surgical history: Reports: cholecystectomy, hysterectomy Psychiatric history: Reports: no psych history STITCHER OPERATOR history: Reports: no STITCHER OPERATOR history - Social History Smoking Status: Never smoker Smokeless Tobacco Status: No Alcohol use: Reports: none Drug use: Reports: none Physical Exam - General Limitations: no limitations General appearance: alert, in no apparent distress - Head Head exam: atraumatic, normocephalic, normal inspection - Eye Eye exam: Present: normal appearance, EOMI - ENT ENT exam: normal exam, normal oropharynx, mucous membranes moist - Neck Neck exam: Present: normal inspection, full ROM, trachea midline - Chest Chest inspection: Present: normal inspection, symmetric chest wall rise - Respiratory Respiratory exam: Present: normal lung sounds bilaterally. Absent: respiratory distress, wheezes - Cardiovascular Cardiovascular exam: Present: regular rate, normal rhythm, normal heart sounds - Abdominal Exam Abdominal exam: Present: soft, Non-Tender. Absent: distention - Extremities Exam Extremities exam: Present: normal inspection, normal capillary refill, other (Patient complains of pain to palpation bilateral upper and lower extremities. There is no lower extremity pitting edema. No joint swelling. No erythema or cellulitis of the skin. Full range of motion of all 4 extremities). Absent: joint swelling, calf tenderness - Neurological Exam Neurological exam: Present: alert, oriented X3 - Expanded Neurological Exam Speech: Present: fluid speech Cerebellar function: finger to nose: Normal Motor strength - LUE: 5/5 Motor strength - RUE: 5/5 Motor strength - LLE: 5/5 Motor strength - RLE: 5/5 Upper motor neuron exam: deborah neglect: Absent bilaterally Sensory exam upper extremity: light touch: Normal Sensory exam lower extremity: light touch: Normal - Psychiatric Psychiatric exam: Present: normal affect, normal mood - Skin Skin exam: Present: warm, dry, intact, normal color Course Vital Signs Temperature 98.0 F 08/20/18 12:09 Pulse Rate 60 08/20/18 12:09 Respiratory Rate 18 08/20/18 12:09 Blood Pressure 114/57 08/20/18 12:09 O2 Sat by Pulse Oximetry 97 08/20/18 12:09 Temperature 98.0 F 08/20/18 12:09 Pulse Rate 60 08/20/18 12:09 Respiratory Rate 18 08/20/18 12:09 Blood Pressure 114/57 08/20/18 12:09 O2 Sat by Pulse Oximetry 97 08/20/18 12:09 Oxygen Delivery Oxygen Delivery Room Air Medical Decision Making - MDM Narrative Medical decision making narrative: Patient complains of extremity pain. She has no weakness. No focal neurologic deficits. Patient has a recent diagnosis of bilateral lower extremity DVT in the superficial femoral vein. She states her compliance on Eliquis. However given similar presenting symptoms to that end, we will obtain bilateral lower extremity Doppler to rule out any new blood clots. Will also check ESR and CRP to evaluate for an anti-inflammatory or autoimmune response. Also check electrolytes. 15:30 Patient's preliminary report for her lower extremity Doppler shows her bilateral DVTs are still present however they are improved. Preliminary report shows right and left DVT SFV that partially compressible with suspicious intraluminal echoes and chronic DVT and left and right KNEE. No new DVT. Patient's sodium is 159. She has not had elevated sodium in the past. Calcium is 6.9. We will obtain EKG. She will be started on D5 percent in the water at 100 mL per hour for her hyponatremia. She is not displaying any seizure-like activity at this time. She will require admission for further management of her electrolyte disorder. 15:50 EKG obtained shows no acute ischemic changes. She is in sinus rhythm. T waves are normal. No QT prolongation. She will be admitted at this time. Hospi talist has been consulted. Patient does have hypothyroidism. She does take calcitriol and vitamin D. She also states she has been on a salt restriction. Unclear etiology for the sudden hyponatremia and hypocalcemia. 16:10 Discussed with Hospitalist, Dr. Arredondo, who accepts admission. Albumin has been added. He states he will correct the calcium and if lower than 7 he will replace with calcium gluconate. At this time patient remains stable for admission for hyponatremia and hypocalcemia. - Medical Records Medical records reviewed: Yes I reviewed the patient's medical records. - Lab Data Lab results reviewed: Yes I reviewed the patient's lab results. Result diagrams: 08/20/18 14:11 08/20/18 14:11 Lab Results 08/20/18 08/20/18 08/20/18 Range/Units 13:45 14:11 14:11 WBC 6.2 (4.3-11.1) K/mcL RBC 3.64 L (3.82-4.97) M/mcL Hgb 9.8 L (11.5-15.4) g/dL Hct 31.3 L (35.3-44.9) % MCV 86.0 (83.0-100.0) fL MCH 26.9 L (28.0-33.3) pg MCHC 31.3 L (31.6-35.5) g/dL RDW 14.8 H (11.5-14.5) % Plt Count 130 L (140-400) K/mcL MPV 10.9 (9.4-12.4) fL Immature Gran % 0.3 (0-4) % Seg Neutrophils % 61.3 % Lymphocytes % 30.2 % Monocytes % 6.8 % Eosinophils % 1.1 % Basophils % 0.3 % Neutrophils # 3.8 (1.6-8.9) K/mcL Lymphocytes # 1.9 (0.6-4.6) K/mcL Monocytes # 0.4 (0.0-1.3) K/mcL Eosinophils # 0.1 (0.0-0.6) K/mcL Basophils # 0.0 (0.0-0.2) K/mcL ESR (0-15) mm/hr Sodium 159 H (136-145) mEq/L Potassium 4.9 (3.5-5.1) mEq/L Chloride 86 L (98-107) mEq/L Carbon Dioxide 20 L (23-29) mEq/L BUN 42 H (8-23) mg/dL Creatinine 1.67 H (0.60-1.20) mg/dL Est GFR ( Amer) 37 L (> 60) Est GFR (Non-Af Amer) 30 L (> 60) BUN/Creatinine Ratio 25 (6-26) Glucose 103 (70-105) mg/dL Calculated Osmolality 339 H (280-300) Calcium 6.9 L (8.6-10.3) mg/dL Magnesium 1.6 (1.6-2.6) mg/dL C-Reactive Protein (Less than 10) mg/L Urine Color Yellow (Yellow) Urine Clarity Clear (Clear) Urine pH 6.0 (5.0-8.0) pH Units Ur Specific [place] 1.007 L (1.010-1.025) Urine Protein Trace (Neg-Trace) mg/dL Urine Glucose (UA) Normal (Normal) mg/dL Urine Ketones Negative (Negative) mg/dL Urine Blood Negative (Negative) Urine Nitrite Negative (Negative) Urine Bilirubin Negative (Negative) Urine Urobilinogen Normal (Normal) mg/dL Ur Leukocyte Esterase Small H (Negative) Urine Microscopic RBC 0-3 (0-3) per hpf Urine Microscopic WBC 5-15 H (0-3) per hpf Ur Squamous Epith Cells Many H (None-Few) per lpf Urine Bacteria None Seen (None-Few) per hpf Hyaline Casts None Seen (None-Few) per lpf Ur Culture Indicated? NO. A (NO) 08/20/18 08/20/18 Range/Units 14:11 14:11 WBC (4.3-11.1) K/mcL RBC (3.82-4.97) M/mcL Hgb (11.5-15.4) g/dL Hct (35.3-44.9) % MCV (83.0-100.0) fL MCH (28.0-33.3) pg MCHC (31.6-35.5) g/dL RDW (11.5-14.5) % Plt Count (140-400) K/mcL MPV (9.4-12.4) fL Immature Gran % (0-4) % Seg Neutrophils % % Lymphocytes % % Monocytes % % Eosinophils % % Basophils % % Neutrophils # (1.6-8.9) K/mcL Lymphocytes # (0.6-4.6) K/mcL Monocytes # (0.0-1.3) K/mcL Eosinophils # (0.0-0.6) K/mcL Basophils # (0.0-0.2) K/mcL ESR 53 H (0-15) mm/hr Sodium (136-145) mEq/L Potassium (3.5-5.1) mEq/L Chloride (98-107) mEq/L Carbon Dioxide (23-29) mEq/L BUN (8-23) mg/dL Creatinine (0.60-1.20) mg/dL Est GFR ( Amer) (> 60) Est GFR (Non-Af Amer) (> 60) BUN/Creatinine Ratio (6-26) Glucose (70-105) mg/dL Calculated Osmolality (280-300) Calcium (8.6-10.3) mg/dL Magnesium (1.6-2.6) mg/dL C-Reactive Protein < 5 (Less than 10) mg/L Urine Color (Yellow) Urine Clarity (Clear) Urine pH (5.0-8.0) pH Units Ur Specific [place] (1.010-1.025) Urine Protein (Neg-Trace) mg/dL Urine Glucose (UA) (Normal) mg/dL Urine Ketones (Negative) mg/dL Urine Blood (Negative) Urine Nitrite (Negative) Urine Bilirubin (Negative) Urine Urobilinogen (Normal) mg/dL Ur Leukocyte Esterase (Negative) Urine Microscopic RBC (0-3) per hpf Urine Microscopic WBC (0-3) per hpf Ur Squamous Epith Cells (None-Few) per lpf Urine Bacteria (None-Few) per hpf Hyaline Casts (None-Few) per lpf Ur Culture Indicated? (NO) - Radiology Data Radiology results reviewed: Yes I reviewed the patient's radiology results. - EKG Data EKG #1 EKG attestation: Yes I reviewed and interpreted this EKG. EKG results narrative: EKG obtained at 1548 shows sinus rhythm with heart rate 60. The EKG computer states complete AV block however there is a before every QRS. There is no complete AV block. She is in sinus rhythm. No ST elevation or depression. QRS duration 95. QTC 425. Compared to old EKG on 06/18/2017 which is unchanged.
[2018-08-20 14:34] LABS: Basophils % 0.3 %; Eosinophils # 0.1 K/mcL (0.0-0.6); Eosinophils % 1.1 %; Hematocrit 31.3 % (35.3-44.9); Hemoglobin 9.8 g/dL (11.5-15.4); Immature Granulocytes % 0.3 % (0-4); Lymphocytes # 1.9 K/mcL (0.6-4.6); Lymphocytes % 30.2 %; Mean Corpuscular HGB Conc 31.3 g/dL (31.6-35.5); Mean Corpuscular Hemoglobin 26.9 pg (28.0-33.3); Mean Platelet Volume 10.9 fL (9.4-12.4); Monocytes # 0.4 K/mcL (0.0-1.3); Monocytes % 6.8 %; Neutrophils # 3.8 K/mcL (1.6-8.9); Platelet Count 130 K/mcL (140-400); Red Blood Count 3.64 M/mcL (3.82-4.97); Red Cell Distribution Width 14.8 % (11.5-14.5); Segmented Neutrophils % 61.3 %
[2018-08-20 15:03] LABS: C-Reactive Protein < 5 mg/L (Less than 10)
[2018-08-20 15:04] LABS: Calcium 6.9 mg/dL (8.6-10.3); Magnesium 1.6 mg/dL (1.6-2.6); Potassium 4.9 mEq/L (3.5-5.1)
[2018-08-20] MEDS ORDERED: DEXTROSE 5 % IN WATER 50 ML PGGYBK.PRT IV STA (15:28)
[2018-08-20 16:41] LABS: Albumin 3.8 g/dL (3.5-5.7)
[2018-08-20] MEDS: D5% in Water 1,000 ML IVC SCH (16:58)
[2018-08-20] MEDS ORDERED: Ibuprofen 600 MG TABLET PO ONE (18:19)
--- NOTE | 2018-08-20 19:36 | Internal Med History&Physical ---
Date of Encounter: 08/20/18 Time of Encounter: 19:31 Internal Medicine - H&P: HPI Chief complaint: leg pain Admitted From: Home Plans for Post Hospital Care: Home History of present illness: Ms. Trevizo is a 73 year old female B/L DVT, gout, DM-II, CKD IV , Pt reports having pain from her groin down to her knees. She was recently diagnosed with LE DVT, Jun 21 2019. Pt states she was discharged on Eliquis. Daughter at bedside states weekend before pt was having B/L leg pain but she figured since she was on blood thinners she would do fine so she decided to wait a few days. She states pain worse in past 3 days and unbearable. She also reports having back pain which starts in the small of her back, goes down her side and down to her hip. Pt describes LE pain as pins and needles sensation. She states when US tech was examining her " it felt like she was sticking me with a needle." Pt states she has some mild pain when she walks but not much. Pt's daughter states she has been having block injections in the past for her chronic back pain. CODE STATUS: FULL CODE In ED Na 132, BUN 49, Cr 2.16. WBC 5.3, hgb 9.8, plt 121 Past Med Surg Social Fam HX - Past Medical History Medical history: arthritis, diabetes, hypertension, peripheral artery disease, renal disease Additional medical history: OBSTRUCTIVE SLEEP APNEA. Psychiatric history: no psych history - Past Surgical History Surgical History: cholecystectomy, hysterectomy Additional surgical history: Vein Stripping. Bladder surgery - Social History Smoking Status: Never smoker Smokeless Tobacco Status: No Alcohol use: none Drug use: none - Family History Mother Adopted: No Twin of Family Member: Yes, Identical Living Status: Hx Family Cardiac Disorders: Yes (sister, pacemaker, open heart sx) Hx Family Respiratory Disorders: No Hx Family Cancer: Yes (dad, skin cancer) Hx Family GI Disorders: No Hx Family Endocrine Disorder: Yes (thyroid, dm) Hx Family Neuromuscular Disorders: No Hx Family Neurologic Disorders: No Hx Family HEENT Disorders: No Hx Family Autoimmune Disorders: No Internal Medicine - H&P: Meds Aspirin 81 mg PO DAILY 01/07/16 [History] Bupropion HCl [Wellbutrin Xl] 300 mg PO DAILY 01/07/16 [History] Citalopram Hydrobromide [Celexa] 40 mg PO DAILY 01/07/16 [History] Cyclobenzaprine [Flexeril] 5 mg PO HS PRN 01/07/16 [History] Ergocalciferol (VITAMIN D2) [Vitamin D2 (50,000 UNIT)] 50,000 unit PO QWEEK MDD monday01/07/16 [History] Levothyroxine [Synthroid] 150 mcg PO 0600 01/07/16 [History] Simvastatin [Zocor] 40 mg PO HS 01/07/16 [History] Amitriptyline HCl 10 mg PO HS 06/18/17 [History] Aripiprazole [Abilify] 2 mg PO DAILY 06/18/17 [History] Calcitriol 0.5 mcg PO DAILY 06/18/17 [History] Folic Acid 1 mg PO DAILY 06/18/17 [History] Iron Aspgly,Ps/C/B12/FA/Ca/Suc [Ferrex 150 Forte Plus Capsule] 1 each PO DAILY 06/18/17 [History] Vitamin B Complex [B Complex] 1 tab PO DAILY 06/19/17 [History] Losartan Potassium [Cozaar] 25 mg PO DAILY #0 06/25/17 [Rx] Furosemide [Lasix] 20 mg PO DAILY 07/05/17 [History] Allopurinol [Zyloprim 100 MG] 200 mg PO DAILY #30 tablet 07/07/17 [Rx] GlipiZIDE [Glucotrol Xl] 2.5 mg PO DAILY 07/06/18 [History] Eliquis 08/21/18 [History] Allergy/AdvReac Type Severity Reaction Status Date / Time No Known Allergies Allergy Verified 06/18/17 13:05 All Systems PM: A 10-system review of systems was performed and is negative for pertinent findings except as documented above in the HPI. - Constitutional Vitals: Temp Pulse Resp BP Pulse Ox 98.0 F 60 18 114/57 97 08/20/18 12:09 08/20/18 12:09 08/20/18 12:09 08/20/18 12:08/20/18 12:09 General appearance: Present: A&O X 3, no acute distress Exam: . - Head Head exam: Present: atraumatic, normocephalic - Eye Eye exam: Present: PERRL, conjuntiva pink, sclera anicteric Pupils: Present: PERRL - Neck Neck exam general surgery: Present: supple, trachea midline. Absent: lymphadenopathy - Respiratory Respiratory exam: Present: CTAB. Absent: accessory muscle use, rales, rhonchi, wheezes - Cardiovascular Cardiovascular exam: Present: RRR, +S1, +S2. Absent: diastolic murmur, gallop, rubs, systolic murmur - GI/Abdominal GI/Abdominal exam: Present: normal bowel sounds, soft, no peritoneal signs. Absent: distended, tenderness - Extremities Exam Extremities exam: Present: warm, radial pulses palpable and symmetrical. Absent: calf tenderness, cyanotic, pedal edema - Neurological Exam Neurological exam: Present: CN II-XII intact, oriented X3, no focal deficits. Absent: pronater drift, facial droop, speech deficit - Skin Skin exam: Present: dry, intact Internal Med - H&P Results - Labs CBC & Chem 7: 08/21/18 08:28 08/21/18 08:28 Labs: Short CBC 08/20/18 Range/Units 14:11 WBC 6.2 (4.3-11.1) K/mcL Hgb 9.8 L (11.5-15.4) g/dL Hct 31.3 L (35.3-44.9) % Plt Count 130 L (140-400) K/mcL Neutrophils # 3.8 (1.6-8.9) K/mcL BMP 08/20/18 14:11 Sodium 159 H Potassium 4.9 Chloride 86 L Carbon Dioxide 20 L BUN 42 H Creatinine 1.67 H Glucose 103 Calcium 6.9 L Liver Function 08/20/18 Range/Units 14:11 Albumin 3.8 (3.5-5.7) g/dL Urine 08/20/18 Range/Units 13:45 Urine Color Yellow (Yellow) Urine Clarity Clear (Clear) Urine pH 6.0 (5.0-8.0) pH Units Ur Specific [place] 1.007 L (1.010-1.025) Urine Protein Trace (Neg-Trace) mg/dL Urine Glucose (UA) Normal (Normal) mg/dL - Assessment and plan (1) 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 Will resume Eliquis Venous doppler Impressions: Chronic deep venous thrombosis is present in the right superficial femoral vein. Normal right lower extremity superficial venous exam. Chronic deep venous thrombosis is present in the left superficial femoral vein. Normal left lower extremity superficial venous exam. Recommendations: After imaging the patient returned to their room. Test completed on 08/20/2018 at 3:19:51 pm. Critical findings reported to Ciera Huang by phone at 3:20:06 pm on 08/20/2018 by Abigail Mendes RVT, RDCS. (2) Lower back pain Current Visit: No Status: Chronic Assessment and plan: Will place on PRN pain medication. Qualifiers: Chronicity: acute Back pain laterality: bilateral Sciatica presence: unspecified whether sciatica present Qualified Code(s): M54.5 - Low back pain (3) Bilateral lower extremity pain Current Visit: Yes Status: Acute Assessment and plan: Checking MRI lumbar and thoracic spine. (4) JOSELINE (acute kidney injury) Current Visit: No Status: Acute Assessment and plan: Will give IVF and reassess in am. Will hold Losartan (5) CKD (chronic kidney disease) stage 4, GFR 15-29 ml/min Current Visit: No Status: Acute Assessment and plan: Will check BMP. (6) Hyponatremia Current Visit: Yes Status: Acute Assessment and plan: Will check in am. - Time Spent With Patient Total time spent is greater than 50% in coordination of care (as documented) at patient's floor/unit and/or counseling patient: 25 - 35 minutes
[2018-08-20] MEDS ORDERED: Ondansetron 4 MG/2 ML VIAL IVP PRN (22:12)
[2018-08-20] MEDS ORDERED: Naloxone 0.4 MG/ML INJ IVP PRN (22:12)
[2018-08-21] MEDS: Acetaminophen 325 MG TABLET PO PRN (01:26)
[2018-08-21] MEDS: *HR* HYDROcodone/Acet 5/325 mg TABLET PO PRN ×3 (04:40→22:31)
[2018-08-21] MEDS: D5% in Water 1,000 ML IVC SCH (04:40)
[2018-08-21 08:59] LABS: Hematocrit 31.5 % (35.3-44.9); Hemoglobin 9.8 g/dL (11.5-15.4); Mean Corpuscular HGB Conc 31.1 g/dL (31.6-35.5); Mean Corpuscular Hemoglobin 26.6 pg (28.0-33.3); Mean Corpuscular Volume 85.4 fL (83.0-100.0); Mean Platelet Volume 11.5 fL (9.4-12.4); Platelet Count 121 K/mcL (140-400); Red Blood Count 3.69 M/mcL (3.82-4.97); Red Cell Distribution Width 14.8 % (11.5-14.5)
[2018-08-21] MEDS ORDERED: FERREX PO SCH (09:00)
[2018-08-21] MEDS ORDERED: *HR* GlyBURIDE 2.5 MG TABLET PO SCH (09:00)
[2018-08-21] MEDS ORDERED: [UNRECOGNIZED DRUG - OTHER] PO SCH (09:00)
[2018-08-21] MEDS: BuPROPion XL (24 HR) 150 MG TABLET PO SCH (09:10)
[2018-08-21] MEDS: Apixaban 5 MG TABLET PO SCH ×2 (09:10→21:04)
[2018-08-21] MEDS: ARIPiprazole 2 MG TABLET PO SCH (09:10)
[2018-08-21] MEDS: Iron Polysaccharide Complex 150 MG CAPSULE PO SCH (09:10)
[2018-08-21] MEDS: Aspirin 81 MG TAB.CHEW PO SCH (09:10)
[2018-08-21 09:20] LABS: Albumin 3.7 g/dL (3.5-5.7); Albumin/Globulin Ratio 1.2 (1.1-2.2); Bilirubin,Total 0.5 mg/dL (0.3-1.0); Calcium 9.4 mg/dL (8.6-10.3); Globulin 3.1 g/dL (2.4-3.5); Total Protein 6.8 g/dL (6.4-8.9)
--- NOTE | 2018-08-21 10:09 | Internal Med Progress Note ---
Hospitalist Progress Note - Encounter Date of Encounter: 08/21/18 Time of Encounter: 10:07 - Subjective Interval History: Pt states she attempted to get up out of bed and had some LE pain with increased activity. She denies difficulty walking. She also reports having some back pain. She denies fever, chills, N/V, constipation or diarrhea. She denies chest pain or SOB. - Exam Vitals: Temp Pulse Resp BP Pulse Ox 98.7 F 61 16 113/63 98 08/21/18 07:29 08/21/18 07:29 08/21/18 07:29 08/21/18 07:29 08/21/18 07:29 Exam: General appearance: Present: A&O X 3, no acute distress Exam: - Head Head exam: Present: atraumatic, normocephalic - Eye Eye exam: Present: PERRL, conjuntiva pink, sclera anicteric Pupils: Present: PERRL - Neck Neck exam general surgery: Present: supple, trachea midline. Absent: lymphadenopathy - Respiratory Respiratory exam: Present: CTAB. Absent: accessory muscle use, rales, rhonchi, wheezes - Cardiovascular Cardiovascular exam: Present: RRR, +S1, +S2. Absent: diastolic murmur, gallop, rubs, systolic murmur - GI/Abdominal GI/Abdominal exam: Present: normal bowel sounds, soft, no peritoneal signs. Absent: distended, tenderness - Extremities Exam Extremities exam: Present: warm, radial pulses palpable and symmetrical. Leg pain with increased activity. Absent: calf tenderness, cyanotic, pedal edema - Neurological Exam Neurological exam: Present: CN II-XII intact, oriented X3, no focal deficits. Absent: pronater drift, facial droop, speech deficit - Skin Skin exam: Present: dry, intact - Assessment and Plan (1) Chronic bilateral deep vein thrombosis (DVT) of femoral veins Current Visit: Yes Status: Chronic Assessment and Plan: Bilateral LE DVT. Will resume Eliquis Venous doppler Impressions: Chronic deep venous thrombosis is present in the right superficial femoral vein. Normal right lower extremity superficial venous exam. Chronic deep venous thrombosis is present in the left superficial femoral vein. Normal left lower extremity superficial venous exam. Recommendations: After imaging the patient returned to their room. Test completed on 08/20/2018 at 3:19:51 pm. Critical findings reported to Ciera Huang by phone at 3:20:06 pm on 08/20/2018 by Abigail Mendes RVT, RDCS. (2) Lower back pain Current Visit: No Status: Chronic Assessment and Plan: MRI spine showing L5-S1 severe left neural foraminal stenosis. Discussed with Dr. Smart and appreciate input. Will continue PRN pain medication. Will start on neurotin 100 mg TID JOSELINE/CKD, will continue to monitor Cr. (3) Bilateral lower extremity pain Current Visit: Yes Status: Acute Assessment and Plan: Management as above. MRI lumbar and thoracic spine MR/MR lumbar spine wo con IMPRESSION: No evidence of acute osseous fracture of the thoracic or lumbar spine. T2 vertebral body chronic anterior wedging deformity, similar to CT chest 07/06/2018. Lumbar spondylosis notable for facet degenerative changes from L2-3 through L5-S1 and small disc bulges from L1-2 through L5-S1 with mild central spinal canal stenosis. L5-S1 severe left neural foraminal stenosis also noted. Moderate multilevel thoracic spondylosis. (4) JOSELINE (acute kidney injury) Current Visit: No Status: Acute Assessment and Plan: Will give IVF and reassess in am. Holding Losartan (5) CKD (chronic kidney disease) stage 4, GFR 15-29 ml/min Current Visit: No Status: Acute Assessment and Plan: Will check BMP. (6) Hyponatremia Current Visit: Yes Status: Acute Assessment and Plan: Patient had Na 159 on admission and was placed on D5 0.45 NS. Na 132 so stopping D5 0.45 NS. Will reassess Na level in am DVT Prophylaxis: Eliquis - Summary of Assessment and Plan Summary of Assessment and Plan: History of present illness: Dr. Alvarez Ms. Trevizo is a 73 year old female B/L DVT, gout, DM-II, CKD IV , Pt reports having pain from her groin down to her knees. She was recently diagnosed with LE DVT, Jun 21 2019. Pt states she was discharged on Eliquis. Daughter at bedside states weekend before pt was having B/L leg pain but she figured since she was on blood thinners she would do fine so she decided to wait a few days. She states pain worse in past 3 days and unbearable. She also reports having back pain which starts in the small of her back, goes down her side and down to her hip. Pt describes LE pain as pins and needles sensation. She states when US tech was examining her " it felt like she was sticking me with a needle." Pt states she has some mild pain when she walks but not much. Pt's daughter states she has been having block injections in the past for her chronic back pain. - Time Spent with Patient Total time spent is greater than 50% in coordination of care (as documented) at patient's floor/unit and/or counseling patient: less than 15 minutes Plan of Care Discussed with: patient Internal Medicine: Result - Labs CBC & Chem 7: 08/21/18 08:28 08/21/18 08:28 Labs: Short CBC 08/20/18 08/21/18 Range/Units 14:11 08:28 WBC 6.2 5.3 (4.3-11.1) K/mcL Hgb 9.8 L 9.8 L (11.5-15.4) g/dL Hct 31.3 L 31.5 L (35.3-44.9) % Plt Count 130 L 121 L (140-400) K/mcL Neutrophils # 3.8 (1.6-8.9) K/mcL BMP 08/20/18 08/20/18 08/21/18 14:11 19:07 08:28 Sodium 159 H 135 L D 132 L Potassium 4.9 5.0 Chloride 86 L 100 Carbon Dioxide 20 L 26 BUN 42 H 49 H Creatinine 1.67 H 2.16 H Glucose 103 115 H Calcium 6.9 L 9.4 Liver Function 08/20/18 08/21/18 Range/Units 14:11 08:28 Total Bilirubin 0.5 (0.3-1.0) mg/dL AST 14 (13-39) Units/L ALT 7 (7-52) Units/L Alkaline Phosphatase 101 (34-104) Units/L Albumin 3.8 3.7 (3.5-5.7) g/dL Urine 08/20/18 Range/Units 13:45 Urine Color Yellow (Yellow) Urine Clarity Clear (Clear) Urine pH 6.0 (5.0-8.0) pH Units Ur Specific [place] 1.007 L (1.010-1.025) Urine Protein Trace (Neg-Trace) mg/dL Urine Glucose (UA) Normal (Normal) mg/dL - Impressions Impressions Lumbar Spine MRI 08/20/18 22:14 IMPRESSION: No evidence of acute osseous fracture of the thoracic or lumbar spine. T2 vertebral body chronic anterior wedging deformity, similar to CT chest 07/06/2018. Lumbar spondylosis notable for facet degenerative changes from L2-3 through L5-S1 and small disc bulges from L1-2 through L5-S1 with mild central spinal canal stenosis. L5-S1 severe left neural foraminal stenosis also noted. Moderate multilevel thoracic spondylosis. D/ / 08/21/2018 07:11:00 Karri martinez Interpreting Provider: Karri Patel Thoracic Spine MRI 08/20/18 22:15 IMPRESSION: No evidence of acute osseous fracture of the thoracic or lumbar spine. T2 vertebral body chronic anterior wedging deformity, similar to CT chest 07/06/2018. Lumbar spondylosis notable for facet degenerative changes from L2-3 through L5-S1 and small disc bulges from L1-2 through L5-S1 with mild central spinal canal stenosis. L5-S1 severe left neural foraminal stenosis also noted. Moderate multilevel thoracic spondylosis. D/ / 08/21/2018 07:11:00 Karri martinez Interpreting Provider: Karri Patel Consult Discharge Plan - Plan Referrals: Cha Freeman MD [Primary Care Provider] - (2) Lower back pain Qualifiers: Chronicity: acute Back pain laterality: bilateral Sciatica presence: unspeci fied whether sciatica present Qualified Code(s): M54.5 - Low back pain
[2018-08-21] MEDS ORDERED: Dextrose Gel 15 GM/37.5 ML TUBE PO PRN ×2 (10:40)
[2018-08-21] MEDS ORDERED: D5% in Water 1,000 ML IVC PRN (10:40)
[2018-08-21] MEDS ORDERED: *HR* Dextrose 50 % in Water (Syg) 50 ML SYRINGE IVP PRN (10:40)
[2018-08-21] MEDS: 0.9 % Sodium Chloride 1,000 ML IVC SCH ×2 (11:09→18:38)
[2018-08-21] MEDS: Gabapentin 100 MG CAPSULE PO SCH ×2 (15:35→21:05)
[2018-08-21] MEDS ORDERED: 0.9 % Sodium Chloride 1,000 ML ONE (18:36)
[2018-08-21] MEDS ORDERED: Nitroglycerin 0.4 MG TAB.SUBL SL ONE (18:45)
[2018-08-21] MEDS: Nitroglycerin 0.4 MG TAB.SUBL SL PRN ×2 (19:03→19:05)
[2018-08-22 06:39] LABS: Basophils % 0.4 %; Eosinophils # 0.1 K/mcL (0.0-0.6); Hematocrit 30.1 % (35.3-44.9); Hemoglobin 9.5 g/dL (11.5-15.4); Immature Granulocytes % 0.4 % (0-4); Lymphocytes # 2.1 K/mcL (0.6-4.6); Lymphocytes % 41.1 %; Mean Corpuscular HGB Conc 31.6 g/dL (31.6-35.5); Mean Corpuscular Hemoglobin 27.1 pg (28.0-33.3); Mean Corpuscular Volume 85.8 fL (83.0-100.0); Mean Platelet Volume 11.5 fL (9.4-12.4); Monocytes # 0.4 K/mcL (0.0-1.3); Monocytes % 7.7 %; Neutrophils # 2.5 K/mcL (1.6-8.9); Platelet Count 111 K/mcL (140-400); Red Blood Count 3.51 M/mcL (3.82-4.97); Red Cell Distribution Width 15.1 % (11.5-14.5); Segmented Neutrophils % 48.4 %
[2018-08-22 07:00] LABS: Calcium 9.2 mg/dL (8.6-10.3); Potassium 4.8 mEq/L (3.5-5.1)
[2018-08-22] MEDS: BuPROPion XL (24 HR) 150 MG TABLET PO SCH (07:54)
[2018-08-22] MEDS: Gabapentin 100 MG CAPSULE PO SCH ×2 (07:54→13:48)
[2018-08-22] MEDS: Apixaban 5 MG TABLET PO SCH (07:54)
[2018-08-22] MEDS: ARIPiprazole 2 MG TABLET PO SCH (07:54)
[2018-08-22] MEDS: Aspirin 81 MG TAB.CHEW PO SCH (07:54)
[2018-08-22] MEDS: methylPREDNISolone 4 MG TABLET PO SCH ×2 (07:54→16:01)
[2018-08-22] MEDS: Iron Polysaccharide Complex 150 MG CAPSULE PO SCH (07:54)
[2018-08-22] MEDS ORDERED: *HR* GlipiZIDE 5 MG TABLET PO SCH (08:00)
[2018-08-22] MEDS: *HR* HYDROcodone/Acet 5/325 mg TABLET PO PRN ×2 (10:28→16:01)
--- NOTE | 2018-08-22 13:04 | Internal Med Progress Note ---
Hospitalist Progress Note - Encounter Date of Encounter: 08/22/18 Time of Encounter: 12:58 - Subjective Interval History: Pt states she is feeling much better today. She was able to get up out of bed and get herself cleaned up and dressed. She denies difficulty walking. She still reports having some back pain with occasional radiation to LE and not constant as it was on admission. She denies fever, chills, N/V, constipation or diarrhea. She denies chest pain or SOB. - Exam Vitals: Temp Pulse Resp BP Pulse Ox 97.9 F 70 16 103/63 92 08/22/18 11:21 08/22/18 11:21 08/22/18 11:21 08/22/18 11:21 08/22/18 11:21 Exam: General appearance: Present: A&O X 3, no acute distress Exam: - Head Head exam: Present: atraumatic, normocephalic - Eye Eye exam: Present: PERRL, conjuntiva pink, sclera anicteric Pupils: Present: PERRL - Neck Neck exam general surgery: Present: supple, trachea midline. Absent: lymphadenopathy - Respiratory Respiratory exam: Present: CTAB. Absent: accessory muscle use, rales, rhonchi, wheezes - Cardiovascular Cardiovascular exam: Present: RRR, +S1, +S2. Absent: diastolic murmur, gallop, rubs, systolic murmur - GI/Abdominal GI/Abdominal exam: Present: normal bowel sounds, soft, no peritoneal signs. Absent: distended, tenderness - Extremities Exam Extremities exam: Present: warm, radial pulses palpable and symmetrical. back and Leg pain improving. Absent: calf tenderness, cyanotic, pedal edema - Neurological Exam Neurological exam: Present: CN II-XII intact, oriented X3, no focal deficits. Absent: pronater drift, facial droop, speech deficit - Skin Skin exam: Present: dry, intact - Assessment and Plan (1) Chronic bilateral deep vein thrombosis (DVT) of femoral veins Current Visit: Yes Status: Chronic Assessment and Plan: Bilateral LE DVT. Continue Eliquis Venous doppler Impressions: Chronic deep venous thrombosis is present in the right superficial femoral vein. Normal right lower extremity superficial venous exam. Chronic deep venous thrombosis is present in the left superficial femoral vein. Normal left lower extremity superficial venous exam. Recommendations: After imaging the patient returned to their room. Test completed on 08/20/2018 at 3:19:51 pm. Critical findings reported to Ciera Huang by phone at 3:20:06 pm on 08/20/2018 by Abigail Mendes RVT, RD. (2) Lower back pain Current Visit: No Status: Chronic Assessment and Plan: MRI spine showing L5-S1 severe left neural foraminal stenosis. Discussed with Dr. Smart and pt seen by Dr. Carlson. Awaiting recommendations. Will continue PRN pain medication, medrol dose zenobia, ad neurotin 100 mg TID. (3) Bilateral lower extremity pain Current Visit: Yes Status: Acute Assessment and Plan: Pt reports much improved today. Seen by spine ad awaiting further recommendations. Management as above. MRI lumbar and thoracic spine MR/MR lumbar spine wo con IMPRESSION: No evidence of acute osseous fracture of the thoracic or lumbar spine. T2 vertebral body chronic anterior wedging deformity, similar to CT chest 07/06/2018. Lumbar spondylosis notable for facet degenerative changes from L2-3 through L5-S1 and small disc bulges from L1-2 through L5-S1 with mild central spinal canal stenosis. L5-S1 severe left neural foraminal stenosis also noted. Moderate multilevel thoracic spondylosis. (4) JOSELINE (acute kidney injury) Current Visit: No Status: Acute Assessment and Plan: Received IVF for correction of hypernatremia and lasix had been held. This may have contributed to Cr tredning up. Will resume home dose Lasix and reassess Cr in am. Continue to hold Losartan (5) CKD (chronic kidney disease) stage 4, GFR 15-29 ml/min Current Visit: No Status: Acute Assessment and Plan: Will check BMP in am. (6) Hypernatremia Current Visit: Yes Status: Acute Assessment and Plan: Patient had Na 159 on admission and was placed on D5 0.45 NS. Na 132 08/21/18 so stopped D5 0.45 NS. Na now 134 Will reassess Na level in am (7) Hyponatremia Current Visit: Yes Status: Acute Assessment and Plan: as above - Summary of Assessment and Plan Summary of Assessment and Plan: History of present illness: Ms. Trevizo is a 73 year old female B/L DVT, gout, DM-II, CKD IV, and hypothyroidism Pt reports having pain from her groin down to her knees. She was recently diagnosed with LE DVT, Jun 21 2019. Pt states she was discharged on Eliquis. Daughter at bedside states weekend before pt was having B/L leg pain but she figured since she was on blood thinners she would do fine so she decided to wait a few days. She states pain worse in past 3 days and unbearable. She also reports having back pain which starts in the small of her back, goes down her side and down to her hip. Pt describes LE pain as pins and needles sensation. She states when Tizra was examining her " it felt like she was sticking me with a needle." Pt states she has some mild pain when she walks but not much. Pt's daughter states she has been having block injections in the past for her chronic back pain. - Time Spent with Patient Total time spent is greater than 50% in coordination of care (as documented) at patient's floor/unit and/or counseling patient: less than 15 minutes Plan of Care Discussed with: patient Internal Medicine: Result - Labs CBC & Chem 7: 08/22/18 06:03 08/22/18 06:03 Labs: Short CBC 08/22/18 Range/Units 06:03 WBC 5.1 (4.3-11.1) K/mcL Hgb 9.5 L (11.5-15.4) g/dL Hct 30.1 L (35.3-44.9) % Plt Count 111 L (140-400) K/mcL Neutrophils # 2.5 (1.6-8.9) K/mcL BMP 08/22/18 06:03 Sodium 134 L Potassium 4.8 Chloride 103 Carbon Dioxide 21 L BUN 54 H Creatinine 2.30 H Glucose 92 Calcium 9.2 Cardiac Enzymes 08/21/18 Range/Units 18:56 Troponin I < 0.03 (< 0.04) ng/mL - Impressions Impressions Lumbar Spine MRI 08/20/18 22:14 IMPRESSION: No evidence of acute osseous fracture of the thoracic or lumbar spine. T2 vertebral body chronic anterior wedging deformity, similar to CT chest 07/06/2018. Lumbar spondylosis notable for facet degenerative changes from L2-3 through L5-S1 and small disc bulges from L1-2 through L5-S1 with mild central spinal canal stenosis. L5-S1 severe left neural foraminal stenosis also noted. Moderate multilevel thoracic spondylosis. D/ / 08/21/2018 07:11:00 Karri martinez Interpreting Provider: Karri Patel Thoracic Spine MRI 08/20/18 22:15 IMPRESSION: No evidence of acute osseous fracture of the thoracic or lumbar spine. T2 vertebral body chronic anterior wedging deformity, similar to CT chest 07/06/2018. Lumbar spondylosis notable for facet degenerative changes from L2-3 through L5-S1 and small disc bulges from L1-2 through L5-S1 with mild central spinal canal stenosis. L5-S1 severe left neural foraminal stenosis also noted. Moderate multilevel thoracic spondylosis. D/ / 08/21/2018 07:11:00 Karri martinez Interpreting Provider: Karri Patel Consult Discharge Plan - Plan Referrals: Cha Freeman MD [Primary Care Provider] - (2) Lower back pain Qualifiers: Chronicity: acute Back pain laterality: bilateral Sciatica presence: unspecified whether sciatica present Qualified Code(s): M54.5 - Low back pain
[2018-08-22] MEDS ORDERED: Furosemide 20 MG TABLET PO PRN (13:06)
[2018-08-22] MEDS ORDERED: Furosemide 20 MG TABLET PO SCH (13:09)
[2018-08-22] MEDS: Acetaminophen 325 MG TABLET PO PRN (13:48)
--- NOTE | 2018-08-22 15:55 | Spinal Consult Note ---
Date of Encounter: 08/22/18 Time of Encounter: 15:55 Assessment and Plan (1) Foraminal stenosis of lumbar region Current Visit: Yes Status: Chronic On exam the patient is awake and alert and mild distress secondary to back and bilateral lower extremity radicular pain. Gait was not tested. She is neurovascularly intact with regard to her bilateral lower extremities. She has a negative straight leg raise. Her hips move symmetrically. She has no clonus. MRI of the lumbar spine reveals multilevel degenerative changes. There is some foraminal stenosis which is moderate to severe on the left side. There is no other severe stenosis seen. Impression: 1) foraminal stenosis lumbar spine most notable L5-S1 2) lumbar radiculopathy 3) history of lower extremity DVT PLAN: I had a long discussion with the patient. She has not had physical th erapy for some time. The patient has some in-house physical therapy for lower extremity strengthening and gait training as well as referral to Dr. Kim in pain management next week after discharge from the hospital and when pain is manageable with medications. Likely he will consider repeat lumbar epidural steroid injections or other interventional treatments which may benefit the patient. Patient says she does not need urgent surgical intervention at this time as she has no focal neurologic deficits or acute indications for surgery. Patient is amenable to this plan and appears to understand. (2) Lumbar radiculopathy Current Visit: Yes Status: Chronic History of Present Illness Chief complaint: Back pain and bilateral lower extremity pain HPI: Ms. Trevizo is a 73 year old female B/L DVT, gout, DM-II, CKD IV , Pt complains of back pain which radiates in the bilateral lower extremity to her bilateral knees anteriorly. She states the pain is worsened over the past week and became unbearable. She currently rates her pain is a 6 on a pain scale. She has a history of recent bilateral lower extremity DVTs which is treated with anticoagulation. She also has a history of chronic back problems and radicular symptoms and has been a patient of Dr. Kim'beatriz in the past. She has done well with lumbar epidural steroid injections previously. Her pain is manageable on oral narcotics during this hospital stay. She denies any recent therapy. She denies any bowel bladder symptomatology, weakness in lower extremities. Past Med Surg Social Fam HX - Past Medical History Medical history: arthritis, diabetes, hypertension, peripheral artery disease, renal disease Additional medical history: OBSTRUCTIVE SLEEP APNEA. Psychiatric history: no psych history - Past Surgical History Surgical History: cholecystectomy, hysterectomy Additional surgical history: Vein Stripping. Bladder surgery - Social History Smoking Status: Never smoker Smokeless Tobacco Status: No Alcohol use: none Drug use: none - Family History Mother Adopted: No Twin of Family Member: Yes, Identical Living Status: Hx Family Cardiac Disorders: Yes (sister, pacemaker, open heart sx) Hx Family Respiratory Disorders: No Hx Family Cancer: Yes (dad, skin cancer) Hx Family GI Disorders: No Hx Family Endocrine Disorder: Yes (thyroid, dm) Hx Family Neuromuscular Disorders: No Hx Family Neurologic Disorders: No Hx Family HEENT Disorders: No Hx Family Autoimmune Disorders: No Medications and Allergies ARIPiprazole [Abilify] 5 mg PO DAILY 08/21/18 [History] Albuterol Sulfate [Albuterol Inhaler] 2 puff IH Q4H PRN 08/21/18 [History] Allopurinol [Zyloprim 100 MG] 100 mg PO DAILY 08/21/18 [History] Amitriptyline [Elavil] 10 mg PO HS 08/21/18 [History] Apixaban [Eliquis] 5 mg PO BID 08/21/18 [History] Aspirin [Lo-Dose Aspirin EC] 81 mg PO DAILY 08/21/18 [History] BuPROPion XL (24 HR) [Wellbutrin XL] 300 mg PO DAILY 08/21/18 [History] Budesonide/Formoterol 160/4.5 [Symbicort 160/4.5] 2 puff IH BIDR 08/21/18 [History] Citalopram [CeleXA] 40 mg PO DAILY 08/21/18 [History] Clobetasol Propionate 0.05% [Temovate] 1 appl TP 3XW 08/21/18 [History] Ergocalciferol (VITAMIN D2) [Vitamin D2] 50,000 unit PO ANGLIN@0900 08/21/18 [History] Folic Acid 1 mg PO DAILY 08/21/18 [History] Furosemide [Lasix] 20 mg PO DAILY 08/21/18 [History] Glimepiride [Amaryl] 2 mg PO 0800 08/21/18 [History] Iron Aspgly,Ps/C/B12/FA/Ca/Suc [Ferrex 150 Forte Plus Capsule] 1 each PO DAILY@0800 08/21/18 [History] Levothyroxine [Synthroid] 150 mcg PO DAILY@0630 08/21/18 [History] Losartan [Cozaar] 25 mg PO DAILY 08/21/18 [History] Nystatin Cream [Mycostatin Cream] 1 appl TP BID 08/21/18 [History] Simvastatin [Zocor] 40 mg PO HS 08/21/18 [History] Tiotropium [place] [Spiriva Respimat] 2 inh IH DAILY 08/21/18 [History] Tramadol HCl [Ultram] 50 mg PO BID PRN 08/21/18 [History] Allergy/AdvReac Type Severity Reaction Status Date / Time No Known Allergies Allergy Verified 06/18/17 13:05 Results - Labs Result Diagrams: 08/22/18 06:03 08/22/18 06:03 Labs: Abnormal lab results RBC 3.51 M/mcL (3.82-4.97) L 08/22/18 06:03 Hgb 9.5 g/dL (11.5-15.4) L 08/22/18 06:03 Hct 30.1 % (35.3-44.9) L 08/22/18 06:03 MCH 27.1 pg (28.0-33.3) L 08/22/18 06:03 RDW 15.1 % (11.5-14.5) H 08/22/18 06:03 Plt Count 111 K/mcL (140-400) L 08/22/18 06:03 ESR 53 mm/hr (0-15) H 08/20/18 14:11 Sodium 134 mEq/L (136-145) L 08/22/18 06:03 Carbon Dioxide 21 mEq/L (23-29) L 08/22/18 06:03 BUN 54 mg/dL (8-23) H 08/22/18 06:03 Creatinine 2.30 mg/dL (0.60-1.20) H 08/22/18 06:03 Est GFR ( Amer) 25 (> 60) L 08/22/18 06:03 Est GFR (Non-Af Amer) 21 (> 60) L 08/22/18 06:03 POC Glucose 122 mg/dL (70-99) H 08/21/18 18:45 Ur Specific [place] 1.007 (1.010-1.025) L 08/20/18 13:45 Ur Leukocyte Esterase Small (Negative) H 08/20/18 13:45 Urine Microscopic WBC 5-15 per hpf (0-3) H 08/20/18 13:45 Ur Squamous Epith Cells Many per lpf (None-Few) H 08/20/18 13:45 Ur Culture Indicated? NO. (NO) A 08/20/18 13:45 H & H 08/22/18 Range/Units 06:03 Hgb 9.5 L (11.5-15.4) g/dL Hct 30.1 L (35.3-44.9) % All other labs normal. Consult Discharge Plan - Plan Referrals: Cha Freeman MD [Primary Care Provider] -
--- NOTE | 2018-08-22 16:16 | Discharge Summary ---
- NOTES TO OUTPATIENT PROVIDER Notes to Outpatient Provider: PCP in 5 to 7 days. Orthopedic follow out pt Orders not resulted at time of discharge: Pending orders 08/21/18 18:43 ECG 12 lead ECG [ECG] Stat 08/22/18 16:06 Creatinine Routine 08/23/18 04:00 BMP [Basic Metabolic Panel] AM 0400 CBC [Complete Blood Count] [HEME] AM 0400 08/24/18 04:00 BMP [Basic Metabolic Panel] AM 0400 CBC [Complete Blood Count] [HEME] AM 0400 Date of Encounter: 08/22/18 Time of Encounter: 16:16 - Discharge Diagnosis (1) Chronic bilateral deep vein thrombosis (DVT) of femoral veins Priority: Primary Status: Chronic Assessment and Plan: Bilateral LE DVT. Continue Eliquis Venous doppler Impressions: Chronic deep venous thrombosis is present in the right superficial femoral vein. Normal right lower extremity superficial venous exam. Chronic deep venous thrombosis is present in the left superficial femoral vein. Normal left lower extremity superficial venous exam. Recommendations: After imaging the patient returned to their room. Test completed on 08/20/2018 at 3:19:51 pm. Critical findings reported to Ciera Huang by phone at 3:20:06 pm on 08/20/2018 by TIFFANY PooleT, RDCS. (2) Lower back pain Priority: Secondary Status: Chronic Assessment and Plan: MRI spine showing L5-S1 severe left neural foraminal stenosis. Discussed with Dr. Smart and pt seen by Dr. Carlson. Awaiting recommendations. Will DC on PRN pain medication, medrol dose zenobia, and neurotin 100 mg TID. Ortho/spine recommending out pt follow up with pain management. Qualifiers: Chronicity: acute Back pain laterality: bilateral Sciatica presence: unspecified whether sciatica present Qualified Code(s): M54.5 - Low back pain (3) Bilateral lower extremity pain Priority: Secondary Status: Acute Assessment and Plan: Pt reports much improved today. Seen by spine ad awaiting further recommendations. Management as above. MRI lumbar and thoracic spine MR/MR lumbar spine wo con IMPRESSION: No evidence of acute osseous fracture of the thoracic or lumbar spine. T2 vertebral body chronic anterior wedging deformity, similar to CT chest 07/06/2018. Lumbar spondylosis notable for facet degenerative changes from L2-3 through L5-S1 and small disc bulges from L1-2 through L5-S1 with mild central spinal canal stenosis. L5-S1 severe left neural foraminal stenosis also noted. Moderate multilevel thoracic spondylosis. (4) JOSELINE (acute kidney injury) Priority: Secondary Status: Acute Assessment and Plan: Received IVF for correction of hypernatremia and lasix had been held. Initially thought Cr trending up but upon further review of previous Cr is appears to be in similar range. Pt has out pt labs and F/U Monday with record press supervisor Dr. Hess 08/27/18. Will resume home dose Lasix . May resume Losartan (5) CKD (chronic kidney disease) stage 4, GFR 15-29 ml/min Priority: Secondary Status: Acute Assessment and Plan: Will follow up with Dr. Hess out pt (6) Hypernatremia Priority: Secondary Status: Acute Assessment and Plan: Patient had Na 159 on admission and was placed on D5 0.45 NS. Na 132 08/21/18 so stopped D5 0.45 NS. Na now 134 labs out pt with Dr. Hess on Monday following discharge (7) Hyponatremia Priority: Secondary Status: Acute Assessment and Plan: as above Hospital course: History of present illness: Dr. Alvarez Ms. Trevizo is a 73 year old female B/L DVT, gout, DM-II, CKD IV, and hypothyroidism Pt reports having pain from her groin down to her knees. She was recently diagnosed with LE DVT, Jun 21 2019. Pt states she was discharged on Eliquis. Daughter at bedside states weekend before pt was having B/L leg pain but she figured since she was on blood thinners she would do fine so she decided to wait a few days. She states pain worse in past 3 days and unbearable. She also reports having back pain which starts in the small of her back, goes down her side and down to her hip. Pt describes LE pain as pins and needles sensation. She states when [employer] was examining her " it felt like she was sticking me with a needle." Pt states she has some mild pain when she walks but not much. Pt's daughter states she has been having block injections in the past for her chronic back pain. See A/P for hospital course Discharge discussed with: patient - Time Spent with Patient Total time spent providing and/or coordinating discharge services: Greater than 30 minutes - Discharge Medications Prescriptions: HYDROcodone/Acet 5/325 mg [[place] 5-325 mg] 1 tab PO Q4HR PRN 5 Days #30 tablet PRN Reason: Moderate to Severe Pain Gabapentin [Neurontin] 100 mg PO TID 30 Days #90 capsule Home Medications: ARIPiprazole [Abilify] 5 mg PO DAILY 08/21/18 [History] Albuterol Sulfate [Albuterol Inhaler] 2 puff IH Q4H PRN 08/21/18 [History] Allopurinol [Zyloprim 100 MG] 100 mg PO DAILY 08/21/18 [History] Amitriptyline [Elavil] 10 mg PO HS 08/21/18 [History] Apixaban [Eliquis] 5 mg PO BID 08/21/18 [History] Aspirin [Lo-Dose Aspirin EC] 81 mg PO DAILY 08/21/18 [History] BuPROPion XL (24 HR) [Wellbutrin Xl] 300 mg PO DAILY 08/21/18 [History] Budesonide/Formoterol 160/4.5 [Symbicort 160/4.5] 2 puff IH BIDR 08/21/18 [History] Citalopram [CeleXA] 40 mg PO DAILY 08/21/18 [History] Clobetasol Propionate 0.05% [Temovate] 1 appl TP 3XW 08/21/18 [History] Ergocalciferol (VITAMIN D2) [Vitamin D2] 50,000 unit PO ANGLIN@0900 08/21/18 [History] Folic Acid 1 mg PO DAILY 08/21/18 [History] Furosemide [Lasix] 20 mg PO DAILY 08/21/18 [History] Glimepiride [Amaryl] 2 mg PO 0800 08/21/18 [History] Iron Aspgly,Ps/C/B12/FA/Ca/Suc [Ferrex 150 Forte Plus Capsule] 1 each PO DAILY@0800 08/21/18 [History] Levothyroxine [Synthroid] 150 mcg PO DAILY@0630 08/21/18 [History] Losartan [Cozaar] 25 mg PO DAILY 08/21/18 [History] Nystatin Cream [Mycostatin Cream] 1 appl TP BID 08/21/18 [History] Simvastatin [Zocor] 40 mg PO HS 08/21/18 [History] Tiotropium [place] [Spiriva Respimat] 2 inh IH DAILY 08/21/18 [History] Tramadol HCl [Ultram] 50 mg PO BID PRN 08/21/18 [History] Gabapentin [Neurontin] 100 mg PO TID 30 Days #90 capsule 08/22/18 [Rx] HYDROcodone/Acet 5/325 mg [[place] 5-325 mg] 1 tab PO Q4HR PRN 5 Days #30 tablet 08/22/18 [Rx] methylPREDNISolone [Medrol] 4 mg PO BIDWM #0 tablet 08/22/18 [Rx] Allergies/Adverse Reactions: Allergy/AdvReac Type Severity Reaction Status Date / Time No Known Allergies Allergy Verified 06/18/17 13:05 Date of admission: 08/20/18 22:32 Primary care physician: Cha Freeman MD Consults: 08/21/18 10:05 Consult to Spine Navigator [CONS] [CONS] Routine 08/22/18 09:38 Consult to Occupational Therapy [CONS] Routine Comment: Evaluate, develop and implement POC Reason for Consult: eval for poss ecf Does patient have active BEDREST order?: No Is patient medically & hemodynamically stable?: Yes Consult to Physical Therapy [CONS] Routine Comment: Evaluate, develop and implement POC Reason for Consult: eval for poss ecf Does patient have active BEDREST order?: No Is patient medically & hemodynamically stable?: Yes Discharging clinician: Arlene Alvarez Anticipated date of discharge: 08/22/18 - Constitutional Vitals: Temp Pulse Resp BP Pulse Ox 97.9 F 70 16 103/63 92 08/22/18 11:21 08/22/18 11:21 08/22/18 11:21 08/22/18 11:21 08/22/18 11:21 General appearance: Present: A&O X 3, no acute distress Exam: General appearance: Present: A&O X 3, no acute distress Exam: - Head Head exam: Present: atraumatic, normocephalic - Eye Eye exam: Present: PERRL, conjuntiva pink, sclera anicteric Pupils: Present: PERRL - Neck Neck exam general surgery: Present: supple, trachea midline. Absent: lymphadenopathy - Respiratory Respiratory exam: Present: CTAB. Absent: accessory muscle use, rales, rhonchi, wheezes - Cardiovascular Cardiovascular exam: Present: RRR, +S1, +S2. Absent: diastolic murmur, gallop, rubs, systolic murmur - GI/Abdominal GI/Abdominal exam: Present: normal bowel sounds, soft, no peritoneal signs. Absent: distended, tenderness - Extremities Exam Extremities exam: Present: warm, radial pulses palpable and symmetrical. back and Leg pain improving. Absent: calf tenderness, cyanotic, pedal edema - Neurological Exam Neurological exam: Present: CN II-XII intact, oriented X3, no focal deficits. Absent: pronater drift, facial droop, speech deficit - Skin Skin exam: Present: dry, intact - Patient Status Disposition: Home, Self-Care Condition: Good Overall status at discharge: patient is progressing back to baseline - Discharge Instructions Instructions: Hydrocodone/Acetaminophen (By mouth), Gabapentin (By mouth) Follow Up With: Cha Freeman MD [Primary Care Provider] - (web request 08/22/2018) - Diet and Activity Activity: increase activity as tolerated Diet: diabetic diet
[2018-08-22 16:23] VITALS: BP 113/77
--- NOTE | 2018-08-22 17:08 | Physician Discharge Referral ---
Home Health/Hosp Referral Info Transfer to: Home Health Provider in Charge Post Discharge: PCP - Diagnosis (1) Chronic bilateral deep vein thrombosis (DVT) of femoral veins Priority: Primary Status: Chronic (2) Lower back pain Status: Chronic (3) Bilateral lower extremity pain Status: Acute (4) JOSELINE (acute kidney injury) Status: Acute (5) CKD (chronic kidney disease) stage 4, GFR 15-29 ml/min Status: Acute (6) Hypernatremia Status: Acute (7) Hyponatremia Status: Acute - Respiratory Orders Smoking Cessation: Smoking cessation has been advised. For more information, call the [place] Tobacco Quit Line at 0-940-EFML-NOW. - Services Needed Following services are medically necessary services: Home Health Aide, Physical Therapy, Occupational Therapy - Transfer Medications Prescriptions: HYDROcodone/Acet 5/325 mg [[place] 5-325 mg] 1 tab PO Q4HR PRN 5 Days #30 tablet PRN Reason: Moderate to Severe Pain Gabapentin [Neurontin] 100 mg PO TID 30 Days #90 capsule Home Medications: ARIPiprazole [Abilify] 5 mg PO DAILY 08/21/18 [History] Albuterol Sulfate [Albuterol Inhaler] 2 puff IH Q4H PRN 08/21/18 [History] Allopurinol [Zyloprim 100 MG] 100 mg PO DAILY 08/21/18 [History] Amitriptyline [Elavil] 10 mg PO HS 08/21/18 [History] Apixaban [Eliquis] 5 mg PO BID 08/21/18 [History] Aspirin [Lo-Dose Aspirin EC] 81 mg PO DAILY 08/21/18 [History] BuPROPion XL (24 HR) [Wellbutrin Xl] 300 mg PO DAILY 08/21/18 [History] Budesonide/Formoterol 160/4.5 [Symbicort 160/4.5] 2 puff IH BIDR 08/21/18 [History] Citalopram [CeleXA] 40 mg PO DAILY 08/21/18 [History] Clobetasol Propionate 0.05% [Temovate] 1 appl TP 3XW 08/21/18 [History] Ergocalciferol (VITAMIN D2) [Vitamin D2] 50,000 unit PO ANGLIN@0900 08/21/18 [History] Folic Acid 1 mg PO DAILY 08/21/18 [History] Furosemide [Lasix] 20 mg PO DAILY 08/21/18 [History] Glimepiride [Amaryl] 2 mg PO 0800 08/21/18 [History] Iron Aspgly,Ps/C/B12/FA/Ca/Suc [Ferrex 150 Forte Plus Capsule] 1 each PO DAILY@0800 08/21/18 [History] Levothyroxine [Synthroid] 150 mcg PO DAILY@0630 08/21/18 [History] Losartan [Cozaar] 25 mg PO DAILY 08/21/18 [History] Nystatin Cream [Mycostatin Cream] 1 appl TP BID 08/21/18 [History] Simvastatin [Zocor] 40 mg PO HS 08/21/18 [History] Tiotropium [place] [Spiriva Respimat] 2 inh IH DAILY 08/21/18 [History] Tramadol HCl [Ultram] 50 mg PO BID PRN 08/21/18 [History] Gabapentin [Neurontin] 100 mg PO TID 30 Days #90 capsule 08/22/18 [Rx] HYDROcodone/Acet 5/325 mg [[place] 5-325 mg] 1 tab PO Q4HR PRN 5 Days #30 tablet 08/22/18 [Rx] methylPREDNISolone [Medrol] 4 mg PO BIDWM #0 tablet 08/22/18 [Rx] Allergies/Adverse Reactions: Allergy/AdvReac Type Severity Reaction Status Date / Time No Known Allergies Allergy Verified 06/18/17 13:05 Certification: Further, I certify that my clinical findings support that this patient is homebound (i.e. absences from home require considerable and taxing effort and are for medical reasons or oriental orthodox services or infrequently or short duration when for other reasons) because: Homebound Reason: Patient requires assistance of a person or device to safely leave home Attestation: My signature below is to certify that this patient is under my care and that I, or nurse practitioner, or a physician's assistant media buyer working with me, has a [id number] encounter with this patient.
--- NOTE | 2018-08-22 22:00 | Electrocardiograph Report ---
[address] [address] Test Date: 2018-08-20 Pat Name: Ghazala Trevizo Department: [id number] Room: 2A Gender: F Contact Lens Assistant: : [id number] Requested By: Ciera Huang Order Number: [id number] Reading MD: Carmenza Cornejo Measurements Intervals [place] Rate: 60 P: 77 NE: 199 QRS: 81 QRSD: 95 T: 74 QT: 435 QTc: 435 Interpretive Statements Sinus rhythm Electronically Signed On 08-22-2018 21:59:10 EST by Carmenza Cornejo
--- NOTE | 2018-08-25 12:58 | Electrocardiograph Report ---
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
== END 2018-08-22 17:20 | disposition home or self-care (01) ==
LOC: 2ANU 11:59 → EMEROOARM 11:59 → 2ANU 23:35
PROVIDERS: ADMIT Student in an Organized Health Care Education/Training Program; ATTEND Student in an Organized Health Care Education/Training Program

== ENCOUNTER 2019-05-02 10:48 | Inpatient (IN) ==
[2019-05-02 12:24] LABS: Basophils % 0.3 %; Eosinophils # 0.1 K/mcL (0.0-0.6); Eosinophils % 1.3 %; Hematocrit 30.9 % (35.3-44.9); Hemoglobin 9.7 g/dL (11.5-15.4); Immature Granulocytes % 0.6 % (0-4); Lymphocytes # 1.8 K/mcL (0.6-4.6); Lymphocytes % 25.5 %; Mean Corpuscular HGB Conc 31.4 g/dL (31.6-35.5); Mean Platelet Volume 11.5 fL (9.4-12.4); Monocytes # 0.5 K/mcL (0.0-1.3); Monocytes % 6.9 %; Neutrophils # 4.6 K/mcL (1.6-8.9); Platelet Count 135 K/mcL (140-400); Red Blood Count 3.47 M/mcL (3.82-4.97); Red Cell Distribution Width 14.2 % (11.5-14.5); Segmented Neutrophils % 65.4 %
[2019-05-02 12:54] LABS: Troponin I < 0.03 ng/mL (< 0.04)
[2019-05-02 13:15] LABS: BUN/Creatinine Ratio 25 (6-26); Blood Urea Nitrogen 67 mg/dL (8-23); Calcium 9.2 mg/dL (8.6-10.3); Carbon Dioxide 23 mEq/L (23-29); Chloride 106 mEq/L (98-107); Glucose 130 mg/dL (70-105); Osmolality,Calculated 305 (280-300); Sodium 137 mEq/L (136-145); eGFR For African Americans 21 (> 60); eGFR For Non-African Americans 17 (> 60)
[2019-05-02] MEDS ORDERED: *HR* Dextrose 50 % in Water (Syg) 50 ML SYRINGE IVP ONE (13:20)
[2019-05-02] MEDS ORDERED: Insulin Human Regular 10 UNIT in 0.9 % Sodium Chloride 10 ML IV ONE (13:20)
[2019-05-02] MEDS ORDERED: Calcium Gluconate 1gm/50mL 1 GM/50 ML BAG IVPB ONE ×2 (13:27→13:32)
[2019-05-02] MEDS ORDERED: Furosemide 40 MG/4 ML VIAL IVP ONE (13:58)
[2019-05-02] MEDS ORDERED: Furosemide 20 MG/2 ML VIAL IVP ONE (15:20)
[2019-05-02] MEDS ORDERED: Ondansetron 4 MG/2 ML VIAL IVP PRN (15:31)
[2019-05-02] MEDS ORDERED: Naloxone 0.4 MG/ML INJ IVP PRN (15:31)
[2019-05-02] MEDS ORDERED: *HR* HYDROcodone/Acet 5/325 mg TABLET PO PRN (15:35)
[2019-05-02 16:53] LABS: Calcium 9.4 mg/dL (8.6-10.3); Potassium 4.7 mEq/L (3.5-5.1)
[2019-05-02] MEDS: Apixaban 5 MG TABLET PO SCH (19:59)
[2019-05-03 05:41] LABS: Hematocrit 30.6 % (35.3-44.9); Hemoglobin 9.7 g/dL (11.5-15.4); Mean Corpuscular HGB Conc 31.7 g/dL (31.6-35.5); Mean Corpuscular Hemoglobin 28.2 pg (28.0-33.3); Mean Platelet Volume 11.8 fL (9.4-12.4); Platelet Count 131 K/mcL (140-400); Red Blood Count 3.44 M/mcL (3.82-4.97); Red Cell Distribution Width 14.3 % (11.5-14.5)
[2019-05-03 05:59] LABS: Calcium 9.4 mg/dL (8.6-10.3); Magnesium 1.6 mg/dL (1.6-2.6); Phosphorous 4.1 mg/dL (2.7-4.5); Potassium 4.8 mEq/L (3.5-5.1)
[2019-05-03] MEDS: ARIPiprazole 5 MG TABLET PO SCH (08:55)
[2019-05-03] MEDS: BuPROPion XL (24 HR) 150 MG TABLET PO SCH (08:55)
[2019-05-03] MEDS: Apixaban 5 MG TABLET PO SCH ×2 (08:55→20:56)
[2019-05-03] MEDS ORDERED: Furosemide 40 MG/4 ML VIAL IVP SCH (09:00)
[2019-05-03] MEDS ORDERED: D5% in Water 1,000 ML IVC PRN (15:36)
[2019-05-03] MEDS ORDERED: *HR* Dextrose 50 % in Water (Syg) 50 ML SYRINGE IVP PRN (15:36)
[2019-05-03] MEDS ORDERED: Dextrose Gel 15 GM/37.5 ML TUBE PO PRN ×2 (15:36)
[2019-05-03] MEDS: *HR* HYDROcodone/Acet 5/325 mg TABLET PO PRN (15:59)
[2019-05-03] MEDS: Insulin LISPRO 300 UNITS/3 ML VIAL SQ SCH (17:03)
[2019-05-03] MEDS: Acetaminophen 325 MG TABLET PO PRN (20:56)
[2019-05-04 05:37] LABS: Basophils % 0.2 %; Eosinophils # 0.1 K/mcL (0.0-0.6); Eosinophils % 2.8 %; Hemoglobin 9.6 g/dL (11.5-15.4); Immature Granulocytes % 0.6 % (0-4); Lymphocytes # 1.5 K/mcL (0.6-4.6); Lymphocytes % 30.6 %; Mean Corpuscular Hemoglobin 28.2 pg (28.0-33.3); Mean Corpuscular Volume 88.2 fL (83.0-100.0); Mean Platelet Volume 11.8 fL (9.4-12.4); Monocytes # 0.4 K/mcL (0.0-1.3); Monocytes % 8.7 %; Neutrophils # 2.8 K/mcL (1.6-8.9); Platelet Count 124 K/mcL (140-400); Red Cell Distribution Width 14.1 % (11.5-14.5); Segmented Neutrophils % 57.1 %; White Blood Count 4.9 K/mcL (4.3-11.1)
[2019-05-04 05:56] LABS: Calcium 9.5 mg/dL (8.6-10.3); Potassium 4.7 mEq/L (3.5-5.1)
[2019-05-04 05:58] LABS: % Iron Saturation 17 % (15-50); Iron 48 mcg/dL (50-170); Transferrin 202 mg/dL (203-362)
[2019-05-04 06:14] LABS: Ferritin 95 ng/mL (10-120)
[2019-05-04] MEDS: ARIPiprazole 5 MG TABLET PO SCH (08:12)
[2019-05-04] MEDS: Apixaban 5 MG TABLET PO SCH ×2 (08:12→19:52)
[2019-05-04] MEDS: Insulin LISPRO 300 UNITS/3 ML VIAL SQ SCH ×3 (08:12→17:14)
[2019-05-04] MEDS: BuPROPion XL (24 HR) 150 MG TABLET PO SCH (08:12)
[2019-05-04] MEDS ORDERED: Furosemide 40 MG/4 ML VIAL IVP ONE (10:23)
[2019-05-04] MEDS: Acetaminophen 325 MG TABLET PO PRN (19:51)
[2019-05-05 04:40] LABS: Basophils % 0.4 %; Eosinophils # 0.1 K/mcL (0.0-0.6); Eosinophils % 2.5 %; Hemoglobin 10.1 g/dL (11.5-15.4); Immature Granulocytes % 0.5 % (0-4); Lymphocytes # 1.5 K/mcL (0.6-4.6); Lymphocytes % 26.1 %; Mean Corpuscular HGB Conc 32.6 g/dL (31.6-35.5); Mean Corpuscular Hemoglobin 28.5 pg (28.0-33.3); Mean Corpuscular Volume 87.6 fL (83.0-100.0); Mean Platelet Volume 11.6 fL (9.4-12.4); Monocytes # 0.4 K/mcL (0.0-1.3); Monocytes % 7.9 %; Neutrophils # 3.5 K/mcL (1.6-8.9); Platelet Count 128 K/mcL (140-400); Red Blood Count 3.54 M/mcL (3.82-4.97); Red Cell Distribution Width 13.9 % (11.5-14.5); Segmented Neutrophils % 62.6 %; White Blood Count 5.6 K/mcL (4.3-11.1)
[2019-05-05 04:53] LABS: Calcium 9.8 mg/dL (8.6-10.3); Potassium 4.6 mEq/L (3.5-5.1)
[2019-05-05] MEDS: Apixaban 5 MG TABLET PO SCH (08:13)
[2019-05-05] MEDS: *HR* HYDROcodone/Acet 5/325 mg TABLET PO PRN (08:13)
[2019-05-05] MEDS: ARIPiprazole 5 MG TABLET PO SCH (08:13)
[2019-05-05] MEDS: BuPROPion XL (24 HR) 150 MG TABLET PO SCH (08:14)
[2019-05-05] MEDS: Insulin LISPRO 300 UNITS/3 ML VIAL SQ SCH ×2 (08:15→12:21)
[2019-05-05 11:30] VITALS: BP 123/59
[2019-05-05] MEDS ORDERED: FLU Vac QV 19-20 (6Month+)/PF 0.5 ML SYRINGE IM ONE (11:48)
[2019-05-06 08:41] LABS: Estimated Average Glucose 154 mg/dl
== END 2019-05-05 12:43 | disposition home or self-care (01) | DRG 291 ==
LOC: 2ANU 10:48 → EMEROOARM 10:48 → 2ANU 15:05 → SUATTDRO 16:09
PROVIDERS: ADMIT Internal Medicine; ATTEND Internal Medicine

== ENCOUNTER 2019-05-24 15:51 | Inpatient (IN) ==
[2019-05-24 16:24] LABS: Basophils % 0.3 %; Eosinophils # 0.1 K/mcL (0.0-0.6); Eosinophils % 1.4 %; Hematocrit 33.1 % (35.3-44.9); Immature Granulocytes % 0.5 % (0-4); Lymphocytes # 1.9 K/mcL (0.6-4.6); Lymphocytes % 30.6 %; Mean Corpuscular HGB Conc 33.2 g/dL (31.6-35.5); Mean Corpuscular Hemoglobin 28.9 pg (28.0-33.3); Mean Corpuscular Volume 87.1 fL (83.0-100.0); Mean Platelet Volume 11.6 fL (9.4-12.4); Monocytes # 0.5 K/mcL (0.0-1.3); Monocytes % 7.4 %; Neutrophils # 3.8 K/mcL (1.6-8.9); Platelet Count 128 K/mcL (140-400); Red Cell Distribution Width 14.2 % (11.5-14.5); Segmented Neutrophils % 59.8 %; White Blood Count 6.4 K/mcL (4.3-11.1)
[2019-05-24 16:52] LABS: BUN/Creatinine Ratio 24 (6-26); Blood Urea Nitrogen 69 mg/dL (8-23); Calcium 9.3 mg/dL (8.6-10.3); Carbon Dioxide 23 mEq/L (23-29); Chloride 103 mEq/L (98-107); Glucose 120 mg/dL (70-105); Osmolality,Calculated 301 (280-300); Potassium 5.2 mEq/L (3.5-5.1); Sodium 135 mEq/L (136-145); Troponin I < 0.03 ng/mL (< 0.04); eGFR For African Americans 20 (> 60); eGFR For Non-African Americans 16 (> 60)
[2019-05-24] MEDS ORDERED: Furosemide 40 MG/4 ML VIAL IVP ONE (17:54)
[2019-05-24] MEDS ORDERED: Ondansetron 4 MG/2 ML VIAL IVP PRN (17:57)
[2019-05-24] MEDS ORDERED: Ondansetron ODT 4 MG TAB.RAPDIS SL PRN (17:57)
[2019-05-24] MEDS ORDERED: Naloxone 0.4 MG/ML INJ IVP PRN (17:57)
[2019-05-24] MEDS ORDERED: Dextrose Gel 15 GM/37.5 ML TUBE PO PRN (18:40)
[2019-05-24] MEDS ORDERED: traMADol 50 MG TABLET PO ONE (22:08)
[2019-05-24] MEDS: Insulin LISPRO 300 UNITS/3 ML VIAL SQ SCH ×2 (22:08→22:09)
[2019-05-25 02:53] LABS: Basophils % 0.4 %; Eosinophils # 0.1 K/mcL (0.0-0.6); Eosinophils % 1.7 %; Hematocrit 30.5 % (35.3-44.9); Immature Granulocytes % 0.2 % (0-4); Mean Corpuscular HGB Conc 32.8 g/dL (31.6-35.5); Mean Corpuscular Hemoglobin 28.5 pg (28.0-33.3); Mean Corpuscular Volume 86.9 fL (83.0-100.0); Monocytes # 0.4 K/mcL (0.0-1.3); Monocytes % 7.5 %; Neutrophils # 2.8 K/mcL (1.6-8.9); Platelet Count 124 K/mcL (140-400); Red Blood Count 3.51 M/mcL (3.82-4.97); Red Cell Distribution Width 14.2 % (11.5-14.5); Segmented Neutrophils % 53.2 %; White Blood Count 5.3 K/mcL (4.3-11.1)
[2019-05-25 03:07] LABS: Calcium 9.1 mg/dL (8.6-10.3); Potassium 4.4 mEq/L (3.5-5.1)
[2019-05-25] MEDS: Insulin LISPRO 300 UNITS/3 ML VIAL SQ SCH ×4 (09:06→21:26)
[2019-05-25] MEDS: *HR* HYDROcodone/Acet 5/325 mg TABLET PO PRN (09:06)
[2019-05-25] MEDS: Furosemide 40 MG/4 ML VIAL IVP SCH ×2 (09:06→21:25)
[2019-05-25] MEDS ORDERED: *HR* Heparin 5,000 UNIT/ML VIAL SQ SCH (18:00)
[2019-05-25] MEDS: Apixaban 5 MG TABLET PO SCH (21:24)
[2019-05-26 02:25] LABS: Calcium 9.3 mg/dL (8.6-10.3); Magnesium 1.6 mg/dL (1.6-2.6); Potassium 4.6 mEq/L (3.5-5.1)
[2019-05-26] MEDS ORDERED: Regadenoson 0.4 MG/5 ML SYRINGE IVP ONE (07:39)
[2019-05-26] MEDS: Insulin LISPRO 300 UNITS/3 ML VIAL SQ SCH ×4 (07:58→20:38)
[2019-05-26] MEDS: Apixaban 5 MG TABLET PO SCH ×2 (10:47→20:37)
[2019-05-26] MEDS: BuPROPion XL (24 HR) 150 MG TABLET PO SCH (10:47)
[2019-05-26] MEDS: Furosemide 40 MG/4 ML VIAL IVP SCH ×2 (10:48→20:37)
[2019-05-26] MEDS: Folic Acid 1 MG TABLET PO SCH (10:48)
[2019-05-26] MEDS ORDERED: Ergocalciferol (VIT D2) 50,000 UNIT (1.25MG) CAP PO SCH (16:20)
[2019-05-26] MEDS: *HR* HYDROcodone/Acet 5/325 mg TABLET PO PRN (20:40)
[2019-05-27 02:03] LABS: Calcium 9.1 mg/dL (8.6-10.3); Potassium 4.2 mEq/L (3.5-5.1)
[2019-05-27] MEDS: Insulin LISPRO 300 UNITS/3 ML VIAL SQ SCH ×4 (08:48→21:04)
[2019-05-27] MEDS: Apixaban 5 MG TABLET PO SCH (08:48)
[2019-05-27] MEDS: Folic Acid 1 MG TABLET PO SCH (08:48)
[2019-05-27] MEDS: Furosemide 40 MG/4 ML VIAL IVP SCH (08:48)
[2019-05-27] MEDS: *HR* HYDROcodone/Acet 5/325 mg TABLET PO PRN (08:49)
[2019-05-27] MEDS: BuPROPion XL (24 HR) 150 MG TABLET PO SCH (08:49)
[2019-05-27] MEDS: Aspirin Enteric Coated 81 MG Tablet PO SCH (12:26)
[2019-05-27] MEDS ORDERED: Sod Bicarb 150mEq/D5W 150 MEQ/1,000 ML IV.SOLN IVC SCH (14:30)
[2019-05-27] MEDS ORDERED: Sodium Bicarbonate 150 MEQ in D5% in Water 1,000 ML IVC SCH (15:00)
[2019-05-27] MEDS: *HR* Acetylcysteine 20% 600 MG/3 ML ORAL SYRINGE PO SCH ×2 (15:17→21:08)
[2019-05-27] MEDS ORDERED: Sodium Bicarbonate 150 MEQ in D5% in Water 1,000 ML IVC PRN (15:59)
[2019-05-27] MEDS: Furosemide 40 MG TABLET PO SCH (17:45)
[2019-05-28 06:28] LABS: Calcium 9.7 mg/dL (8.6-10.3); Potassium 4.1 mEq/L (3.5-5.1)
[2019-05-28] MEDS ORDERED: Sodium Bicarbonate 150 MEQ in D5% in Water 850 ML IVC SCH (07:00)
[2019-05-28] MEDS: Aspirin Enteric Coated 81 MG Tablet PO SCH (08:38)
[2019-05-28] MEDS: Furosemide 40 MG TABLET PO SCH ×2 (08:38→17:32)
[2019-05-28] MEDS: Folic Acid 1 MG TABLET PO SCH (08:39)
[2019-05-28] MEDS: BuPROPion XL (24 HR) 150 MG TABLET PO SCH (08:39)
[2019-05-28] MEDS: Insulin LISPRO 300 UNITS/3 ML VIAL SQ SCH ×4 (08:41→20:35)
[2019-05-28] MEDS ORDERED: Heparin 1,000 UNITS/500 mL 500 ML ONE (13:42)
[2019-05-28] MEDS ORDERED: 0.9 % Sodium Chloride 2,000 ML ONE (13:42)
[2019-05-28] MEDS ORDERED: ISOVUE-370 200 ML INFUS..BTL ONE (13:42)
[2019-05-28] MEDS ORDERED: *HR* Heparin 10,000 UNIT/10 ML VIAL ONE (13:42)
[2019-05-28] MEDS ORDERED: Nitroglycerin 1,000 MCG/10 ML VIAL IV ONE (13:42)
[2019-05-28] MEDS ORDERED: *HR* Midazolam HCl 2 MG/2 ML VIAL ONE (14:06)
[2019-05-28] MEDS ORDERED: *HR* FentaNYL (PF) 100 MCG/2 ML VIAL ONE (14:07)
[2019-05-28] MEDS ORDERED: 0.9 % Sodium Chloride 1,000 ML IVC SCH (14:45)
[2019-05-28] MEDS: *HR* Acetylcysteine 20% 600 MG/3 ML ORAL SYRINGE PO SCH ×2 (16:02→20:35)
[2019-05-29 04:51] LABS: Calcium 9.6 mg/dL (8.6-10.3); Potassium 3.7 mEq/L (3.5-5.1)
[2019-05-29] MEDS: Aspirin Enteric Coated 81 MG Tablet PO SCH (09:44)
[2019-05-29] MEDS: Folic Acid 1 MG TABLET PO SCH (09:44)
[2019-05-29] MEDS: *HR* HYDROcodone/Acet 5/325 mg TABLET PO PRN (09:44)
[2019-05-29] MEDS: BuPROPion XL (24 HR) 150 MG TABLET PO SCH (09:44)
[2019-05-29] MEDS: Furosemide 40 MG TABLET PO SCH ×2 (09:45→16:49)
[2019-05-29] MEDS: Insulin LISPRO 300 UNITS/3 ML VIAL SQ SCH ×4 (09:45→21:00)
[2019-05-29] MEDS: *HR* Acetylcysteine 20% 600 MG/3 ML ORAL SYRINGE PO SCH ×2 (09:45→20:57)
[2019-05-29] MEDS: Apixaban 5 MG TABLET PO SCH (20:56)
[2019-05-30 05:27] LABS: Calcium 9.3 mg/dL (8.6-10.3); Potassium 4.2 mEq/L (3.5-5.1)
[2019-05-30] MEDS: Furosemide 40 MG TABLET PO SCH (07:43)
[2019-05-30] MEDS: Apixaban 5 MG TABLET PO SCH (07:43)
[2019-05-30] MEDS: BuPROPion XL (24 HR) 150 MG TABLET PO SCH (07:43)
[2019-05-30] MEDS: Folic Acid 1 MG TABLET PO SCH (07:43)
[2019-05-30] MEDS: Aspirin Enteric Coated 81 MG Tablet PO SCH (07:43)
[2019-05-30] MEDS: Insulin LISPRO 300 UNITS/3 ML VIAL SQ SCH ×2 (07:44→12:14)
[2019-05-30] MEDS: *HR* Acetylcysteine 20% 600 MG/3 ML ORAL SYRINGE PO SCH (07:44)
[2019-05-30 12:03] VITALS: BP 125/73
== END 2019-05-30 16:21 | disposition home or self-care (01) | DRG 286 ==
LOC: EMEROOARM 15:51 → 3BNU 15:51 → SUATTDRO 18:16 → 3BNU 20:16 → SUATTDRO 05-26 11:49
PROVIDERS: ADMIT Student in an Organized Health Care Education/Training Program; ATTEND Internal Medicine

== ENCOUNTER 2021-04-21 06:52 | Inpatient (IN) ==
[2021-04-21] MEDS ORDERED: Ipratropium/Albuterol Neb 3 ML IH ONE (07:28)
[2021-04-21 08:14] LABS: Basophils % 0.1 %; Eosinophils # 0.1 K/mcL (0.0-0.6); Eosinophils % 0.9 %; Hematocrit 25.2 % (35.3-44.9); Immature Granulocytes % 0.4 % (0-4); Lymphocytes % 11.2 %; Mean Corpuscular HGB Conc 31.7 g/dL (31.6-35.5); Mean Corpuscular Hemoglobin 28.2 pg (28.0-33.3); Mean Corpuscular Volume 88.7 fL (83.0-100.0); Mean Platelet Volume 12.2 fL (9.4-12.4); Monocytes # 0.5 K/mcL (0.0-1.3); Monocytes % 5.9 %; Platelet Count 152 K/mcL (140-400); Red Blood Count 2.84 M/mcL (3.82-4.97); Segmented Neutrophils % 81.5 %; White Blood Count 8.5 K/mcL (4.3-11.1)
[2021-04-21 08:28] LABS: Albumin 4.1 g/dL (3.5-5.7); Albumin/Globulin Ratio 1.5 (1.1-2.2); Bilirubin,Total 0.5 mg/dL (0.3-1.0); Calcium 9.8 mg/dL (8.6-10.3); Globulin 2.8 g/dL (2.4-3.5); Potassium 4.6 mEq/L (3.5-5.1); Total Protein 6.9 g/dL (6.4-8.9)
[2021-04-21 08:35] LABS: VBG HCO3 29 mEq/L (21-27); VBG PCO2 56 mmHg (41-51); VBG PH 7.32 pH Units (7.32-7.42); VBG PO2 56 mmHg (25-50)
[2021-04-21] MEDS ORDERED: *HR* Dextrose 50 % in Water (Syg) 50 ML SYRINGE ONE ×2 (09:07→13:52)
[2021-04-21] MEDS ORDERED: *HR* Dextrose 50 % in Water (Syg) 50 ML SYRINGE IVP ONE ×3 (09:10→13:53)
[2021-04-21 09:30] LABS: Bilirubin,Urine Negative (Negative); Blood,Urine Negative (Negative); Clarity,Urine Clear (Clear); Color,Urine Light-Yellow (Yellow); Glucose,Urine (UA) Normal (Normal); Ketones,Urine Negative (Negative); Leukocyte Esterase,Urine Negative (Negative); Nitrite,Urine Negative (Negative); Protein,Urine Negative (Neg-Trace); Specific Gravity,Urine 1.012 (1.010-1.025); Urobilinogen,Urine Normal (Normal)
[2021-04-21 10:06] LABS: Influenza A PCR Negative (Negative); Influenza B PCR Negative (Negative); Resp. Syncytial Virus PCR Negative (Negative)
[2021-04-21 10:31] LABS: SARS-CoV-2 by PCR (In House) Negative (Negative)
[2021-04-21] MEDS ORDERED: D5% in 0.45% NACL 1,000 ML IVC SCH (12:15)
[2021-04-21] MEDS ORDERED: Naloxone 0.4 MG/ML INJ IVP PRN (13:55)
[2021-04-21] MEDS ORDERED: Ondansetron 4 MG/2 ML VIAL IVP PRN (13:55)
[2021-04-21] MEDS ORDERED: Dextrose Gel 15 GM/37.5 ML TUBE PO PRN ×2 (14:10)
[2021-04-21] MEDS ORDERED: D5% in Water 1,000 ML IVC PRN (14:10)
[2021-04-21] MEDS: *HR* Dextrose 50 % in Water (Syg) 50 ML SYRINGE IVP PRN ×2 (16:15→20:16)
[2021-04-21] MEDS ORDERED: *HR* LORazepam 2 MG/ML VIAL IVP ONE (17:34)
[2021-04-21] MEDS: D5% in 0.45% NACL 1,000 ML IVC SCH (17:40)
[2021-04-21] MEDS: Ipratropium/Albuterol Neb 3 ML IH PRN (17:53)
[2021-04-21 20:41] LABS: ABG Base Excess 3 mEq/L (-2 to 3); ABG HCO3 29 mEq/L (21-27); ABG Oxygen Saturation 98 % (95-98); ABG PCO2 50 mmHg (35-45); ABG PH 7.37 pH Units (7.32-7.45); ABG PO2 114 mmHg (85-104); ABG TCO2 30 mEq/L (20-26)
[2021-04-21 20:44] LABS: Hematocrit 21.7 % (35.3-44.9)
[2021-04-21] MEDS ORDERED: Apixaban 5 MG TABLET PO SCH (21:00)
[2021-04-21] MEDS: D10% in Water 500 ML IVC SCH (21:29)
[2021-04-21 21:30] LABS: Amphetamine Screen,Urine Negative ng/mL (Cutoff=1000); Barbiturate Screen,Urine Negative ng/mL (Cutoff=200); Benzodiazepines Screen,Urine Negative ng/mL (Cutoff=200); Cannabinoid Screen,Urine Negative ng/mL (Cutoff = 50); Cocaine Screen,Urine Negative ng/mL (Cutoff= 300); Opiate Screen,Urine Positive ng/mL (Cutoff=300); Phencyclidine Screen,Urine Negative ng/mL (Cutoff=25)
[2021-04-22 00:07] LABS: Hematocrit 20.8 % (35.3-44.9); Hemoglobin 6.9 g/dL (11.5-15.4)
[2021-04-22 00:59] LABS: Amphetamine Screen,Urine Negative ng/mL (Cutoff=1000); Barbiturate Screen,Urine Negative ng/mL (Cutoff=200); Benzodiazepines Screen,Urine Negative ng/mL (Cutoff=200); Cannabinoid Screen,Urine Negative ng/mL (Cutoff = 50); Cocaine Screen,Urine Negative ng/mL (Cutoff= 300); Opiate Screen,Urine Positive ng/mL (Cutoff=300); Phencyclidine Screen,Urine Negative ng/mL (Cutoff=25)
[2021-04-22] MEDS: *HR* Dextrose 50 % in Water (Syg) 50 ML SYRINGE IVP PRN ×3 (02:43→17:36)
[2021-04-22 03:35] LABS: Eosinophils # 0.1 K/mcL (0.0-0.6); Eosinophils % 1.4 %; Hematocrit 20.3 % (35.3-44.9); Hemoglobin 6.5 g/dL (11.5-15.4); Immature Granulocytes % 0.4 % (0-4); Lymphocytes % 19.3 %; Mean Corpuscular Hemoglobin 28.5 pg (28.0-33.3); Mean Platelet Volume 11.3 fL (9.4-12.4); Monocytes # 0.4 K/mcL (0.0-1.3); Neutrophils # 3.6 K/mcL (1.6-8.9); Platelet Count 108 K/mcL (140-400); Red Blood Count 2.28 M/mcL (3.82-4.97); Red Cell Distribution Width 14.8 % (11.5-14.5); Segmented Neutrophils % 71.9 %
[2021-04-22 03:50] LABS: Calcium 8.9 mg/dL (8.6-10.3)
[2021-04-22] MEDS ORDERED: 0.9 % Sodium Chloride 250 ML ONE ×2 (05:07→09:34)
[2021-04-22] MEDS: D5% in 0.45% NACL 1,000 ML IVC SCH (05:33)
[2021-04-22] MEDS: D10% in Water 500 ML IVC SCH ×3 (05:34→19:39)
[2021-04-22] MEDS: allopurinoL 100 MG TABLET PO SCH (08:36)
[2021-04-22] MEDS ORDERED: Iron Polysaccharide Complex 150 MG CAPSULE PO SCH (09:00)
[2021-04-22 09:11] LABS: Triiodothyronine (T3) Free 2.27 pg/mL (2.50-3.90)
[2021-04-22 11:36] LABS: Creatinine,Urine 66 mg/dL; Sodium, Urine < 10.0 mEq/L
[2021-04-22 11:52] LABS: Hematocrit 24.8 % (35.3-44.9)
[2021-04-22 12:09] LABS: Uric Acid 7.1 mg/dL (2.3-7.6)
[2021-04-22 14:41] LABS: Hemoglobin 8.2 g/dL (11.5-15.4)
[2021-04-22 14:43] LABS: Hematocrit 25.1 % (35.3-44.9)
[2021-04-22] MEDS ORDERED: Lidocaine -MPF 2% 5 ML VIAL ONE (16:13)
[2021-04-22] MEDS ORDERED: *HR* Propofol 200 MG/20 ML VIAL IVP ONE (16:13)
[2021-04-22] MEDS: Pantoprazole 40 MG VIAL IVP SCH (17:29)
[2021-04-22] MEDS ORDERED: Acetaminophen IV 1,000 MG/100 ML BAG IVPB ONE (23:50)
[2021-04-23] MEDS: Ipratropium/Albuterol Neb 3 ML IH PRN (03:24)
[2021-04-23] MEDS: Pantoprazole 40 MG VIAL IVP SCH ×2 (05:06→16:14)
[2021-04-23] MEDS: D10% in Water 500 ML IVC SCH (05:47)
[2021-04-23 07:18] LABS: Calcium 8.8 mg/dL (8.6-10.3); Potassium 4.2 mEq/L (3.5-5.1)
[2021-04-23] MEDS ORDERED: CALCITRIOL 0.5 MCG PO SCH (09:00)
[2021-04-23] MEDS: allopurinoL 100 MG TABLET PO SCH (09:19)
[2021-04-23] MEDS: calcitrioL 0.25 MCG CAPSULE PO SCH (09:19)
[2021-04-23] MEDS: Folic Acid 1 MG TABLET PO SCH (09:19)
[2021-04-23] MEDS: BuPROPion XL (24 HR) 150 MG TABLET PO SCH (09:19)
[2021-04-23] MEDS: ARIPiprazole 5 MG TABLET PO SCH (09:19)
[2021-04-23] MEDS: *HR* HYDROcodone/Acet 5/325 mg TABLET PO PRN ×2 (09:36→21:40)
[2021-04-23 10:40] LABS: Hematocrit 24.6 % (35.3-44.9); Hemoglobin 8.3 g/dL (11.5-15.4); Mean Corpuscular HGB Conc 33.7 g/dL (31.6-35.5); Mean Corpuscular Volume 88.8 fL (83.0-100.0); Platelet Count 112 K/mcL (140-400); Red Blood Count 2.77 M/mcL (3.82-4.97); Red Cell Distribution Width 14.7 % (11.5-14.5); White Blood Count 6.4 K/mcL (4.3-11.1)
[2021-04-23] MEDS ORDERED: *HR* HYDROcodone/Acet 5/325 mg TABLET PO SCH (21:00)
[2021-04-24] MEDS: Pantoprazole 40 MG VIAL IVP SCH (05:53)
[2021-04-24 07:10] LABS: Hematocrit 26.4 % (35.3-44.9); Hemoglobin 8.5 g/dL (11.5-15.4); Mean Corpuscular HGB Conc 32.2 g/dL (31.6-35.5); Mean Corpuscular Hemoglobin 28.5 pg (28.0-33.3); Mean Corpuscular Volume 88.6 fL (83.0-100.0); Mean Platelet Volume 11.8 fL (9.4-12.4); Platelet Count 125 K/mcL (140-400); Red Blood Count 2.98 M/mcL (3.82-4.97); Red Cell Distribution Width 14.8 % (11.5-14.5); White Blood Count 6.3 K/mcL (4.3-11.1)
[2021-04-24 07:30] LABS: Potassium 4.4 mEq/L (3.5-5.1)
[2021-04-24] MEDS ORDERED: 0.9 % Sodium Chloride 1,000 ML IVC SCH (07:45)
[2021-04-24] MEDS ORDERED: Lidocaine -MPF 2% 2 ML VIAL ONE (07:46)
[2021-04-24] MEDS: ARIPiprazole 5 MG TABLET PO SCH (10:41)
[2021-04-24] MEDS: calcitrioL 0.25 MCG CAPSULE PO SCH (10:41)
[2021-04-24] MEDS: allopurinoL 100 MG TABLET PO SCH (10:42)
[2021-04-24] MEDS: BuPROPion XL (24 HR) 150 MG TABLET PO SCH (10:42)
[2021-04-24] MEDS: Folic Acid 1 MG TABLET PO SCH (10:43)
[2021-04-24 12:52] LABS: C-Peptide 9.2 ng/mL (0.5-3.3)
[2021-04-24] MEDS: *HR* HYDROcodone/Acet 5/325 mg TABLET PO PRN (14:39)
[2021-04-24 19:29] LABS: Insulin, Free 29 uIU/mL (3-25)
[2021-04-24] MEDS: Nystatin POWDER 30 GM BOTTLE TP SCH (21:08)
[2021-04-24] MEDS ORDERED: *HR* LORazepam 2 MG/ML VIAL IVP ONE (23:41)
[2021-04-25] MEDS: *HR* HYDROcodone/Acet 5/325 mg TABLET PO PRN ×2 (04:26→17:07)
[2021-04-25 05:06] LABS: Hematocrit 26.6 % (35.3-44.9); Hemoglobin 8.7 g/dL (11.5-15.4); Immature Platelets 4.2 % (1.1-6.1); Mean Corpuscular HGB Conc 32.7 g/dL (31.6-35.5); Mean Corpuscular Volume 88.7 fL (83.0-100.0); Mean Platelet Volume 11.4 fL (9.4-12.4); Red Cell Distribution Width 14.6 % (11.5-14.5); White Blood Count 5.7 K/mcL (4.3-11.1)
[2021-04-25 05:23] LABS: Calcium 9.4 mg/dL (8.6-10.3); Potassium 4.2 mEq/L (3.5-5.1)
[2021-04-25 08:21] LABS: Insulin, Total 35 uIU/mL (3-25)
[2021-04-25] MEDS: Folic Acid 1 MG TABLET PO SCH (09:25)
[2021-04-25] MEDS: ARIPiprazole 5 MG TABLET PO SCH (09:25)
[2021-04-25] MEDS: Nystatin POWDER 30 GM BOTTLE TP SCH ×2 (09:25→19:55)
[2021-04-25] MEDS: calcitrioL 0.25 MCG CAPSULE PO SCH (09:25)
[2021-04-25] MEDS: BuPROPion XL (24 HR) 150 MG TABLET PO SCH (09:26)
[2021-04-25] MEDS: allopurinoL 100 MG TABLET PO SCH (09:26)
[2021-04-25 11:20] LABS: Bilirubin,Urine Negative (Negative); Blood,Urine Large (Negative); Clarity,Urine Clear (Clear); Color,Urine Light-Yellow (Yellow); Glucose,Urine (UA) Normal (Normal); Ketones,Urine Negative (Negative); Leukocyte Esterase,Urine Trace (Negative); Nitrite,Urine Negative (Negative); PH,Urine 5.5 pH Units (5.0-8.0); Protein,Urine Trace mg/dL (Neg-Trace); RBC,Urine 30-50 per hpf (0-3); Specific Gravity,Urine 1.014 (1.010-1.025); Squamous Epithelial Cell,Urine Few per hpf (None-Few); Urobilinogen,Urine Normal (Normal); WBC,Urine 0-3 per hpf (0-3)
[2021-04-25] MEDS: Apixaban 5 MG TABLET PO SCH (19:55)
[2021-04-25] MEDS ORDERED: *HR* LORazepam 2 MG/ML VIAL IVP ONE (22:19)
[2021-04-26] MEDS: *HR* HYDROcodone/Acet 5/325 mg TABLET PO PRN (02:30)
[2021-04-26 03:16] LABS: Hematocrit 27.1 % (35.3-44.9); Hemoglobin 8.7 g/dL (11.5-15.4); Mean Corpuscular HGB Conc 32.1 g/dL (31.6-35.5); Mean Corpuscular Hemoglobin 28.6 pg (28.0-33.3); Mean Corpuscular Volume 89.1 fL (83.0-100.0); Mean Platelet Volume 11.1 fL (9.4-12.4); Platelet Count 122 K/mcL (140-400); Red Blood Count 3.04 M/mcL (3.82-4.97); Red Cell Distribution Width 14.6 % (11.5-14.5); White Blood Count 4.7 K/mcL (4.3-11.1)
[2021-04-26 03:21] LABS: Calcium 9.6 mg/dL (8.6-10.3); Potassium 4.5 mEq/L (3.5-5.1)
[2021-04-26 07:31] VITALS: BP 146/70; PULSE 54; TEMP 97.4; O2SAT 99
[2021-04-26] MEDS: allopurinoL 100 MG TABLET PO SCH (08:20)
[2021-04-26] MEDS: ARIPiprazole 5 MG TABLET PO SCH (08:21)
[2021-04-26] MEDS: BuPROPion XL (24 HR) 150 MG TABLET PO SCH (08:21)
[2021-04-26] MEDS: Folic Acid 1 MG TABLET PO SCH (08:21)
[2021-04-26] MEDS: calcitrioL 0.25 MCG CAPSULE PO SCH (08:21)
[2021-04-26] MEDS: Apixaban 5 MG TABLET PO SCH (08:21)
[2021-04-26 10:25] LABS: Estimated Average Glucose 140 mg/dl; Hemoglobin A1C 6.5 %
[2021-04-26] MEDS: Nystatin POWDER 30 GM BOTTLE TP SCH (10:32)
== END 2021-04-26 13:13 | DRG 637 ==
LOC: 2ANU 06:52 → EMEROOARM 06:52 → SUATTDRO 13:49 → 2ANU 14:26
PROVIDERS: ADMIT Family Medicine; ATTEND Family Medicine